=== PATIENT | male | born 1985 | race Caucasian/White ===

== ENCOUNTER 2019-10-10 05:46 | Outpatient (RCR) | payer OTHER ==
[~2019-10-10] VITALS: Ht 180 cm; Wt 86.3 kg
[~2019-10-10 05:46] MED LIST: ADAL10SY2 SQ; ASPI-84; HYDR1TAB PO; OMG1KC
== END 2019-10-10 14:20 | disposition home or self-care (01) ==
LOC: PREOP 05:46
PROVIDERS: ATTEND Otolaryngology Otolaryngology/Facial Plastic Surgery
DX: Z01.818 Encounter for other preprocedural examination (principal); Z20.828 Contact with and (suspected) exposure to other viral communicable diseases
CPT/HCPCS: 87635

== ENCOUNTER 2019-10-13 06:48 | Day surgery (SDC) | payer OTHER ==
[~2019-10-13] VITALS: Ht 180 cm; Wt 86.3 kg
[2019-10-13] VITALS (11 sets, daily range): BP systolic 127–150; BP diastolic 84–100
--- OUTSIDE RECORDS SUMMARY | 2019-10-13 06:54 | XMS REPORT | CCD ---
Author Author Michael Fink D.O. Organization MAUREEN FINK DO [facility] Address [address] [place] [address] Phone Care Team Providers Care Automotive Manager Name Role Phone Maureen Fink D.O., PP Unavailable CCM Unavailable Summary Purpose Interface Exchange Insurance Providers Payer name Policy type / Coverage type Covered alliance party ID Effective Begin Date Effective End Date [facility] Commercial Insurance [id number] Unkno wn Family history Father Diagnosis Age At Onset Suicide attempt Unknown Grandfather Diagnosis Age At Onset Myocardial infarction Unknown sepsis Unknown Social History Social History Element Codes Description Effective Dates Marital status Unknown 06/07/2015 Employment Unknown Currently employed [employer] 06/07/[address]: 9972836 Former smoker 06/07/[address]: 073844 Currently drinks alcohol 06/06 Has the patient ever used illegal drugs? Unknown Has nev er used illegal drugs 06/07/2015 Allergies, Adverse Reactions, Alerts Substance Reaction Codes Entered Date Inactivated Date Status * NO KNOWN FOOD ALLERGIES Unknown 06/07/2015 No Inactiv e Date Active * NO KNOWN ENVIRONMENTAL ALLERGIES Unknown 06/07/2015 N o Inactive Date Active SULFA(SULFONAMIDE ANTIBIOTICS) reaction Unknown 05/09/2019 No In active Date Active Problems Condition Codes Effective Dates Condition Status Recurrent tonsillitis ICD-9: 463 ICD-10: J03.91 08/04/2019 Active Acute tonsillitis, unspecified ICD-9: 463 ICD-10: J03.90 08/02/2018 Active Acute suppurative otitis media of right ear ICD-9: 382 .00 ICD-10: H66.001 03/07/2019 Active Sinusitis ICD-9: 473.9 ICD-10: J32.9 03/07/2019 Active Acute pharyngitis, unspecified ICD-9: 462 ICD-10: J02.9 06/21/2018 Active Acute recurrent maxillary sinusitis ICD-9: 461.0 ICD-10: J01.01 06/21/2018 Active Cutaneous abscess of abdominal wall ICD-9: 682.2 ICD-10: L02.211 11/30/2017 Active Acute upper respiratory infection, unspecified ICD-9: 465.9 ICD-10: J06.9 08/04/2016 Active Otitis media, unspecified, left ear ICD-9: 382.9 ICD-10: H66.92 08/04/2016 Active Acute sinusitis, unspecified ICD-9: 461.9 ICD-10: J01.90 03/27/2016 Active Gastro-esophageal reflux disease without esophagitis I CD-9: 530.81 ICD-10: K21.9 02/03/2016 Active Chest pain, unspecified ICD-9: 786.50 ICD-10: R07.9 01/13/2016 Active COUGH ICD-9: 786.2 ICD-10: R05 01/13/2016 Active Diarrhea, unspecified ICD-9: 787.91 ICD-10: R19.7 11/08/2015 Active Epigastric pain ICD-9: 789.06 ICD-10: R10.13 11/08/2015 Active Other specified abnormal findings of blood chemistry I CD-9: 790.6 ICD-10: R79.89 11/08/2015 Active Cutaneous abscess, unspecified ICD-9: 682.9 ICD-10: L02.91 08/14/2015 Active Cervicalgia ICD-9: 723.1 ICD-10: M54.2 2015 Active Headache ICD-9: 784.0 ICD-10: R51 2015 Active Psoriasis, unspecified ICD-9: 696.1 ICD-10: L40.9 2015 Active Medications Medication Codes Instructions Start Date Stop Date Status Fill Instructions Dexilant 60 mg capsule, delayed release RxNorm: 118079 1 Capsul e(s) Oral QD 09/02/2019 11/30/2019 Active Dexilant 60 mg capsule, delayed release RxNorm: 572818 1 Capsul e(s) Oral QD 09/02/2019 09/01/2019 Inactive Zithromax 500 mg tablet RxNorm: 187464 1 Tablet(s) Oral QD 05/09/1905/14/2019 Inactive Medrol (Anders) 4 mg tablets in a dose pack RxNorm: 060109 Tablet(s) Oral take as directed 03/14/2019 03/14/2019 Inactive Medrol (Anders) 4 mg tablets in a dose pack RxNorm: 501294 Tablet(s) Oral take as directed 03/14/2019 03/13/2019 Inactive Augmentin 875 mg-125 mg tablet RxNorm: 172496 1 Tablet(s) Oral two times a day 03/07/2019 03/17/2019 Inactive Zithromax 500 mg tablet RxNorm: 205228 1 Tablet(s) PO QD 08/02/2018 0 08/08/2018 Inactive omeprazole 40 mg capsule,delayed release RxNorm: 047007 1 Capsu le(s) PO QD 06/23/2018 03/06/2019 Inactive omeprazole 40 mg capsule,delayed release RxNorm: 653835 1 Capsu le(s) PO QD 06/22/2018 06/22/2018 Inactive Augmentin 875 mg-125 mg tablet RxNorm: 139879 1 Tablet(s) PO BID 06/30/2018 Inactive clindamycin HCl 300 mg capsule RxNorm: 536565 2 Capsule(s) PO TID 0 11/30/2017 12/09/2017 Inactive azithromycin 250 mg tablet RxNorm: 274024 2 Tablet(s) P O on day one then 1 tab on days 2-5 08/04/2016 08/03/2016 Inactive prednisone 20 mg tablet RxNorm: 809589 1 Tablet(s) PO QD 08/04/2016 0 08/08/2016 Inactive Augmentin 875 mg-125 mg tablet RxNorm: 333138 1 Tablet(s) PO BID 04/06/2016 Inactive Medrol (Anders) 4 mg tablets in a dose pack RxNorm: 062975 as directed Tablet(s) PO QD 03/28/2016 04/01/2016 Inactive omeprazole 40 mg capsule,delayed release RxNorm: 056779 1 Capsu le(s) PO QD 02/04/2016 08/03/2016 Inactive omeprazole 40 mg capsule,delayed release RxNorm: 971580 1 Capsu le(s) PO BID 01/14/2016 02/03/2016 Inactive clindamycin 300 mg capsule RxNorm: 075314 1 Capsule(s) PO QID 08/1408/24/2015 Inactive Bactroban 2 % topical ointment RxNorm: 540713 Apply top ically to affected area twice daily for 10 days 08/15/2015 11/08/2015 Inactive omeprazole 40 mg capsule,delayed release RxNorm: 051836 1 Capsu le(s) PO QHS 06/07/2015 08/14/2015 Inactive Humira 40 mg/0.8 mL subcutaneous syringe kit RxNorm: 216585 Milliliter(s) SQ every 2 weeks (Dr Elliott) No Start Date Active omeprazole 40 mg capsule,delayed release RxNorm: 552332 1 Capsu le(s) PO QD No Start Date 01/13/2016 Inactive Medication Administered No Medication Administered data Immunizations No Immunization data Results Observation Observation Code Item Item Code Result Date [facility] Location IRON 67071 Iron 136 ug/dL 11/15/2015 Unknown FERRITIN 76077 FERRITIN 269 ng/mL 11/15/2015 Unknown COMPREHENSIVE METABOLIC 54251 AST 19 U/L 2015 Unknown COMPREHENSIVE METABOLIC 88086 ALT 26 U/L 2015 Unknown COMPREHENSIVE METABOLIC 32655 BUN 12 mg/dL 2015 Unknown COMPREHENSIVE METABOLIC 62816 ALBUMIN 4.3 g/dL 2015 Unknown COMPREHENSIVE METABOLIC 68985 CHLORIDE 103 mmol/L 11/08 Unknown COMPREHENSIVE METABOLIC 28082 Bili Total 0.8 mg/dL 11/08 Unknown COMPREHENSIVE METABOLIC 00744 ALK PHOS 56 U/L 2015 Unknown COMPREHENSIVE METABOLIC 56448 SODIUM 135 mmol/L 11/08 Unknown COMPREHENSIVE METABOLIC 15554 CREATININE 1.08 mg/dL 08/2015 Unknown COMPREHENSIVE METABOLIC 92388 CALCIUM 9.6 mg/dL 2015 Unknown COMPREHENSIVE METABOLIC 58253 POTASSIUM 4.2 mmol/L 11/08 Unknown COMPREHENSIVE METABOLIC 16364 Total Protein 7.4 g/dL Unknown COMPREHENSIVE METABOLIC 04776 Glucose 82 mg/dL 2015 Unknown COMPREHENSIVE METABOLIC 85362 Bicarbonate 23 mmol/L 08/2015 Unknown COMPREHENSIVE METABOLIC 35751 AGAP 9 mmol/L 2015 Unknown LIPID GROUP 02284 Cholesterol 176 mg/dL 11/09/2015 Unkno wn LIPID GROUP 61932 Triglyceride 81 mg/dL 11/09/2015 Unkn own LIPID GROUP 32429 HDL CHOLESTEROL 36 mg/dL 11/09/2015 U nknown LIPID GROUP 02199 Chol/HDL Ratio 4.89 ratio 11/09/2015 U nknown LIPID GROUP 59063 NON-HDL Chol 140 mg/dL 11/09/2015 Unkn own LIPID GROUP 53477 LDL Cholesterol 124 mg/dL 11/09/2015 U nknown GFR CALC 0107350 GFR Afr Amr >60 mL/min 11/09/2015 Unknow n GFR CALC [id number] GFR Non Afr Amr >60 mL/min 11/09/2015 Un known FREE T4 06248 T4 Free 1.58 ng/dL 11/09/2015 Unknown THYROID STIMULATING HORMONE 67759 TSH 1.726 uIU/mL 11/09/2015 Unknown COMPLETE BLOOD COUNT 4853884 WBC 6.2 10e9/L 11/09/19 16 Unknown COMPLETE BLOOD COUNT 2113958 RBC 5.59 10e12/L 2015 Unknown COMPLETE BLOOD COUNT 6053191 HEMOGLOBIN 18.1 g/dL 11/09/19 16 Unknown COMPLETE BLOOD COUNT 4235333 HEMATOCRIT 50.1 % 11/09/19 16 Unknown COMPLETE BLOOD COUNT 0756730 MCV 89.6 fL 6 Unknown COMPLETE BLOOD COUNT 3352447 MCH 32.4 pg 6 Unknown COMPLETE BLOOD COUNT 2251268 MCHC 36.1 g/dL 6 Unknown COMPLETE BLOOD COUNT 0610457 PLATELET COUNT 269 10e9/L 08/2015 Unknown COMPLETE BLOOD COUNT 6492101 Mean Plt Volume 10.8 fL 08/2015 Unknown COMPLETE BLOOD COUNT 6280885 Neut Auto 47.0 % 6 Unknown COMPLETE BLOOD COUNT 4415314 Lymph Auto 33.2 % 11/09/19 16 Unknown COMPLETE BLOOD COUNT 7845956 [place] Auto 16.5 % 6 Unknown COMPLETE BLOOD COUNT 0926361 Eos Auto 2.8 % 6 Unknown COMPLETE BLOOD COUNT 7703662 RDW 13.2 % 6 Unknown COMPLETE BLOOD COUNT 1570271 Baso Auto 0.5 % 6 Unknown COMPLETE BLOOD COUNT 8419601 Neutrophil Abs 2.91 10e9/L Unknown COMPLETE BLOOD COUNT 3686550 Lymphocyte Abs 2.06 10e9/L Unknown COMPLETE BLOOD COUNT [id number] Monocyte Abs 1.02 10e9/L 08/2015 Unknown COMPLETE BLOOD COUNT 1381421 Eosinophil Abs 0.17 10e9/L Unknown COMPLETE BLOOD COUNT 0409239 RDW-SD 42.9 fL 6 Unknown COMPLETE BLOOD COUNT [id number] Basophil Abs 0.03 10e9/L 08/2015 Unknown Procedures Procedure Codes Date STREP A ASSAY W/OPTIC CPT-4: 45134 08/02/2018 STREP A ASSAY W/OPTIC CPT-4: 84649 06/21/2018 ASSAY OF IRON CPT-4: 60109 11/09/2015 ASSAY OF FERRITIN CPT-4: 34298 11/09/2015 DRAINAGE OF SKIN ABSCESS CPT-4: 54772 08/15/2015 AEROBIC WOUND CULTURE & STN CPT-4: 87416 08/15/2015 Vital Signs Date Vital 05/09/2019 Blood Pressure 1: 134/82 Code: 8480-6 Heart Rate 1: 86 bpm Respiratory Rate: 17 bpm SpO2: 98% Temperature: 36.2 (C) / 97.1 (F) We ight: 198 lbs 03/07/2019 Blood Pressure 1: 134/82 Code: 8480-6 Heart Rate 1: 88 bpm Respiratory Rate: 20 bpm SpO2: 98% Temperature: 37.2 (C) / 99.0 (F) We ight: 198 lbs 08/02/2018 Blood Pressure 1: 126/82 Code: 8480-6 BMI: 29.1 Code: 11375-7 Heart Rate 1: 72 bpm Height: 5'10" Respiratory Rate: 20 bpm SpO2: 97% Tempera ture: 36.8 (C) / 98.3 (F) Weight: 203 lbs 06/21/2018 Blood Pressure 1: 128/90 Code: 8480-6 Heart Rate 1: 80 bpm Respiratory Rate: 18 bpm SpO2: 98% Temperature: 36.7 (C) / 98.1 (F) We ight: 207 lbs 11/30/2017 Blood Pressure 1: 122/78 Code: 8480-6 BMI: 27.7 Code: 19906-7 Heart Rate 1: 76 bpm Height: 5'10" SpO2: 98% Temperature: 36.4 (C) / 97.5 (F) Weight: 193 lbs 08/04/2016 Blood Pressure 1: 122/78 Code: 8480-6 BMI: 28.1 Code: 32083-7 Heart Rate 1: 72 bpm Height: 5'10" Respiratory Rate: 22 bpm SpO2: 97% Tempera ture: 36.3 (C) / 97.3 (F) Weight: 196 lbs 03/28/2016 Blood Pressure 1: 136/74 Code: 8480-6 Heart Rate 1: 100 bpm Respiratory Rate: 24 bpm SpO2: 97% Temperature: 36.4 (C) / 97.6 (F) We ight: 198 lbs 02/04/2016 Blood Pressure 1: 112/70 Code: 8480-6 BMI: 27.6 Code: 20116-8 Heart Rate 1: 72 bpm Height: 5'11" Respiratory Rate: 20 bpm Temperature: 36 .6 (C) / 97.8 (F) Weight: 198 lbs 01/14/2016 Blood Pressure 1: 124/78 Code: 8480-6 BMI: 27.8 Code: 26753-3 Heart Rate 1: 76 bpm Height: 5'11" Respiratory Rate: 20 bpm Temperature: 36 .7 (C) / 98.0 (F) Weight: 199 lbs 11/09/2015 Blood Pressure 1: 124/78 Code: 8480-6 BMI: 27.2 Code: 71468-6 Heart Rate 1: 76 bpm Height: 5'11" Respiratory Rate: 20 bpm Temperature: 36 .7 (C) / 98.0 (F) Weight: 195 lbs 08/15/2015 Blood Pressure 1: 124/78 Code: 8480-6 Heart Rate 1: 82 bpm Respiratory Rate: 20 bpm SpO2: 97% Temperature: 35.9 (C) / 96.6 (F) We ight: 198 lbs 06/07/2015 Blood Pressure 1: 128/70 Code: 8480-6 BMI: 28.3 Code: 41591-5 Heart Rate 1: 76 bpm Height: 5'11" Respiratory Rate: 20 bpm Temperature: 36 .9 (C) / 98.4 (F) Weight: 203 lbs Functional Status No Functional Status data Reason For Visit Reason For Visit Effective Dates Notes sore throat 08/04/2019 sore throat 05/09/2019 sinus congestion 03/07/2019 sore throat 08/02/2018 sore throat 06/21/2018 sores 11/30/2017 cough 08/04/2016 cough 03/28/2016 follow up 02/04/2016 chest pain/pressure 01/14/2016 abdominal pain 11/09/2015 skin lesion 08/15/2015 ~generic 06/07/2015 New Patient Encounters Encounter Performer Location Codes Date ([id number]) OFFICE/OUTPATIENT VISIT EST Diagnosis: Recurrent tonsillitis[ICD10: J03.91] Maureen FINK [address] [facility] CPT-4: 19090 08/04/2019 ([id number]) OFFICE/OUTPATIENT VISIT EST Diagnosis: Acute tonsillitis, unspecified[ICD10: J03.90] Justa FINK [address] [facility] CPT-4: 68221 05/09/2019 ([id number]) OFFICE/OUTPATIENT VISIT EST Diagnosis: Sinusitis[ICD10: J32.9] Diagnosis: Acute suppurative otitis media of right ear[ICD10: H66.001] Justa FINK [address] [facility] CPT-4: 46226 03/07/2019 ([id number]) OFFICE/OUTPATIENT VISIT EST Diagnosis: Acute pharyngitis, unspecified[ICD10: J02.9] Diagnosis: Acute tonsillitis, unspecified[ICD10: J03.90] Maureen FINK [address] [facility] CPT-4: 28941 08/02/2018 ([id number]) OFFICE/OUTPATIENT VISIT EST Diagnosis: Acute recurrent maxillary sinusitis[ICD10: J01.01] Diagnosis: Acute pharyngitis, unspecified[ICD10: J02.9] Mary Blairlauren FINK [address] [facility] CPT-4: 26065 06/21/2018 ([id number]) OFFICE/OUTPATIENT VISIT EST Diagnosis: Cutaneous abscess of abdominal wall[ICD10: L02.211] Maureen FINK [address] [facility] CPT-4: 81656 11/30/2017 ([id number]) OFFICE/OUTPATIENT VISIT EST Diagnosis: Acute upper respiratory infection, unspecified[ICD10: J06.9] Diagnosis: Otitis media, unspecified, left ear[ICD10: H66.92] Tammy CRYSTALLINE GregTarah [facility] CPT-4: 01204 08/04/2016 OFFICE/OUTPATIENT VISIT EST Diagnosis: Acute sinusitis, unspecified[ICD10: J01.90] Dacia GarzaTarah [facility] CPT-4: 87533 03/28/2016 OFFICE/OUTPATIENT VISIT EST Diagnosis: Gastro-esophageal reflux disease without esophagitis[ICD10: K21.9] Maureen Chauchong Catalan [facility] CPT-4: 42002 02/04/2016 ([id number]) OFFICE/OUTPATIENT VISIT EST Diagnosis: Chest pain, unspecified[ICD10: R07.9] Diagnosis: Gastro-esophageal reflux disease without esophagitis[ICD10: K21.9] Diagnosis: COUGH[ICD10: R05] Maureen Chauchong Catalan [facility] CPT-4: 40651 01/14/2016 OFFICE/OUTPATIENT VISIT EST Diagnosis: Epigastric pain[ICD10: R10.13] Diagnosis: Diarrhea, unspecified[ICD10: R19.7] Diagnosis: Other specified abnormal findings of blood chemistry[ICD10: R79.89] Dacia CRYSTALLINE GregTarah [facility] CPT-4: 95296 11/09/2015 ([id number]) OFFICE/OUTPATIENT VISIT EST Diagnosis: Cutaneous abscess, unspecified[ICD10: L02.91] Tammy CRYSTALCHERELLE Catalan [facility] CPT-[facility]: 86179 08/15/2015 OFFICE/OUTPATIENT VISIT NEW Diagnosis: Psoriasis, unspecified[ICD10: L40.9] Diagnosis: Gastro-esophageal reflux disease without esophagitis[ICD10: K21.9] Diagnosis: Headache[ICD10: R51] Diagnosis: Cervicalgia[ICD10: M54.2] Maureen Catalan [facility] CPT-4: 62585 06/07/2015 Plan of Care Planned Activity Notes Codes Status Date Visit Diagnosis Plan: Recurrent tonsillitis Discussion : video visit done Will start with throat culture If throat culture negative will need ENT evaluation ICD-9 : 463 ICD-10 : J03.91 08/04/2019 Appointment: Maureen Fink WPtel: [phone] [id number] TELEMEDICINE 08/04/2019 Visit Diagnosis Plan: Acute tonsillitis, unspecified D iscussion: zithromax prescribed to patient. instructed to rtc next week if he continues to have white exudate on tonsils and will proceed with culture. call office with any new or worsening symptoms. ibuprofen prn and push fluids. ICD-9 : 463 ICD-10 : J03.90 05/09/2019 Appointment: Justa Stevenson [address] [place] [address] ACUTE ILLNESS 05/09/2019 Visit Diagnosis Plan: Sinusitis Discussion: augmentin prescribed to cover for sinus infection and ear infection. push fluids and instructed to use tylenol/ibuprofen prn pain. call or rtc with new or worsening symptoms. ICD-9 : 473.9 ICD-10 : J32.9 03/07/2019 Appointment: Justa Stevenson [address] [place] [address] ACUTE ILLNESS 03/07/2019 Visit Plan: Supportive care. Rest, Fluid s, Tylenol/Motrin prn fever or bodyaches. Notify if worsening symptoms.New toothebrush in 5 days 08/02/2018 Visit Diagnosis Plan: Acute pharyngitis, unspecified D iscussion: Strep negative but will cover due to immunodeficiency meds Zithromax Throat culture 2 weeks after done with abx unless worsening then need to consider mono If returns again soon then will see ENT for laryngoscope ICD-9 : 462 ICD-10 : J02.9 08/02/2018 Visit NOS Plan: Plan Notes: Supportive care. Rest, Fluids... 08/02/2018 Appointment: Maureen Fink WPtel: [phone] [facility] ACUTE ILLNESS 08/02/2018 Visit Diagnosis Plan: Acute recurrent maxillary sinusi tis Discussion: Strep A- negative. Treating for sinusitis. Augmentin- take as directed. Sinus rinses encouraged. Salt water gargles. Fluids, rest, Tylenol or Motrin for pain and fever. Make annual wellness visit when checking out. Patient states understanding. ICD-9 : 461.0 ICD-10 : J01.01 06/21/2018 Appointment: Mary Elder [facility] [address] ACUTE ILLNESS 06/21/2018 Visit Diagnosis Plan: Cutaneous abscess of abdominal w all Discussion: Some bloody discharge expressed but no pus--his got old blood and pus out last night Warm compresses and clindamycin and notify if worsens or persists ICD-9 : 682.2 ICD-10 : L02.211 11/30/2017 Appointment: Maureen Fink WPtel: [address] [place] [address] ACUTE ILLNESS 11/30/2017 Patient Education: Patient Medication Summary Completed 11/30/2017 Visit Diagnosis Plan: Acute upper respiratory infectio n, unspecified Discussion: Continue OTC meds and home remedies Rxs as above Notifiy prescriber of humira of treatment plan Rest, fluids, vicks, humidifier, etc Follow up PRN ICD-9 : 465.9 ICD-10 : J06.9 08/04/2016 Appointment: Tammy Martinez [address] [place] [address] ACUTE ILLNESS 08/04/2016 Patient Education: Patient Medication Summary Completed 08/04/2016 Visit Plan: ERx Augmentin and Medrol Dos pack Has Mucinex D at home Nasal saline, humidified air, Tylenol/ibuprofen prn Discussed s/s of worsening, go to UC/QC over weekend if needed 03/28/2016 Appointment: Dacia Champion WPtel: [address] [place] [address] ACUTE ILLNESS 03/28/2016 Patient Education: Patient Medication Summary Completed 03/28/2016 Visit Plan: Finish omeprazole at 40mg po BID for full month then decrease to 40mg daily for 1month then if no return of symptoms will decrease to 20mg daily for 1month then fwup 02/04/2016 Appointment: Maureen Fink WPtel: [address] [place] [address] 01/30 confirmed`sl FOLLOW UP 02/04/2016 Patient Education: Patient Medication Summary Completed 02/04/2016 Patient Education: [facility] - [facility]st Mo [facility] - [facility] [place] Completed 02/04/2016 Visit Plan: No caffeine, no nicotine, no alcohol, no mints, no late meals, elevate HOB 30 degrees Omeprazole 40mg po BID Check CXR and EKG 01/14/2016 Appointment: Maureen Fink WPtel: [address] [place], [place] [address] ACUTE ILLNESS 01/14/2016 Patient Education: Patient Medication Summary Completed 01/14/2016 Care Plan: CHEST X-RAY 2VW FRONTAL&LATL LOINC : 21559-2 Pending 01/14/2016 Appointment: Maureen Fink WPtel: [address] [place] [address] 11/[address] sterling [place] visit~sl RESCHEDULED 0 11/21/2015 Care Plan: ECHO EXAM OF ABDOMEN LOINC : 74204-6 Pending 11/10/2015 Visit Plan: Declines medication for bipinr beverley Declines stool studies CMP, CBC, TSH, Lipids (history of hyperlipidemia) GB U/S RTC/ER for worsening Discussed correlation with high fat foods, avoid. 11/09/2015 Appointment: Dacia Champion WPtel: [address] [place] [address] ACUTE ILLNESS 11/09/2015 Patient Education: Patient Medication Summary Completed 11/09/2015 Appointment: Tammy Martinez [address] [place], [place] [phone] [place] Called at 9:20am.Patients rash went away over night. feeling better.-sp ACUTE ILLNESS 10/31/2015 Appointment: Tammy Martinez [address] [place], [place] [phone] [place] called back within minutes of scheduling to notify he could not make the appointment time. Per Dr Fink, this is a forgiven since he called back immediately to cancel the appointment.~lb RESCHEDULED 10/30/2015 Visit Plan: Rxs as above until culture r eceived Reviewed wound care Will need follow up if not improving as expected 08/15/2015 Appointment: Tammy Martinez [address] [place] [address] ACUTE ILLNESS 08/15/2015 Patient Education: Patient Medication Summary Completed 08/15/2015 Visit Plan: Omeprazole 40mg q HS for 1mo nth then call on how heartburn is doing Check lipids with next blood draw for humira Daily neck stretches and topical biofreeze to see if helps neck and HAS Discussed with pitting in nails may have psoriatic arthritis component as well 06/07/2015 [facility]ment: [facility] [phone] [id number] [place] 06/05-SP 06/06 Confirmed~sl ACUTE ILLNESS 06/06 Patient Education: Patient Medication Summary Completed 06/07/2015 Instructions Comment . Supportive care. Rest, Fluids, Tyleno l/Motrin prn fever or bodyaches. Notify if worsening symptoms.New toothebrush in 5 days . ERx Augmentin and Medrol Dospack Has Mucinex D at home Nasal saline, humidified air, Tylenol/ibuprofen prn Discussed s/s of worsening, go to UC/QC over weekend if needed . Finish omeprazole at 40mg po BID for f ull month then decrease to 40mg daily for 1month then if no return of symptoms will decrease to 20mg daily for 1month then fwup . No caffeine, no nicotine, no alcohol, no mints, no late meals, elevate HOB 30 degrees Omeprazole 40mg po BID Check CXR and EKG . Declines medication for diarrhea Declines stool studies CMP, CBC, TSH, Lipids (history of hyperlipidemia) GB U/S RTC/ER for worsening Discussed correlation with high fat foods, avoid. . Rxs as above until culture received Reviewed wound care Will need follow up if not improving as expected . Omeprazole 40mg q HS for 1month then c all on how heartburn is doing Check lipids with next blood draw for humira Daily neck stretches and topical biofreeze to see if helps neck and HAS Discussed with pitting in nails may have psoriatic arthritis component as well Medical Equipment No Medical Equipment data Health Concerns Section Health Concerns data not found Goals Section Goals data not found Interventions Section Interventions data not found Health Status Evaluations/Outcomes Section Health Status Evaluations/Outcomes data not found Advance Directives No Advance Directive data
--- OUTSIDE RECORDS SUMMARY | 2019-10-13 06:54 | XMS REPORT | CCD ---
Author Author Michael Fink D.O. Organization [facility] Address [address] [place] [address] Phone Care Team Providers Care Receptionist Telephone Operator Name Role Phone Maureen Fink D.O., PP Unavailable CCM Unavailable Summary Purpose Interface Exchange Insurance Providers Payer name Policy type / Coverage type Covered alliance party ID Effective Begin Date Effective End Date [facility] Commercial Insurance [id number] Unkno wn Family history Father Diagnosis Age At Onset Suicide attempt Unknown Grandfather Diagnosis Age At Onset Myocardial infarction Unknown sepsis Unknown Social History Social History Element Codes Description Effective Dates Marital status Unknown 06/07/2015 Employment Unknown Currently employed [employer] 06/07/[address]: 0747690 Former smoker 06/07/[address]: 425394 Currently drinks alcohol 06/06 Has the patient [...] Start Date Stop Date Status Fill Instructions Zithromax 500 mg tablet RxNorm: 329010 1 Tablet(s) Oral QD 05/09/19 20 05/14/2019 Inactive Medrol (Anders) 4 mg tablets in a dose pack RxNorm: 140292 Tablet(s) Oral take as directed 03/14/2019 03/14/2019 Inactive Medrol (Anders) 4 mg tablets in a dose pack RxNorm: 094899 Tablet(s) Oral take as directed 03/14/2019 03/13/2019 Inactive Augmentin 875 mg-125 mg tablet RxNorm: 955874 1 Tablet(s) Oral two times a day 03/07/2019 03/17/2019 Inactive Zithromax 500 mg tablet RxNorm: 361471 1 Tablet(s) PO QD 08/02/2018 0 08/08/2018 Inactive omeprazole 40 mg capsule,delayed release RxNorm: 639643 1 Capsu le(s) PO QD 06/23/2018 03/06/2019 Inactive omeprazole 40 mg capsule,delayed release RxNorm: 040177 1 Capsu le(s) PO QD 06/22/2018 06/22/2018 Inactive Augmentin 875 mg-125 mg tablet RxNorm: 273219 1 Tablet(s) PO BID 06/30/2018 Inactive clindamycin HCl 300 mg capsule RxNorm: 922152 2 Capsule(s) PO TID 0 11/30/2017 12/09/2017 Inactive azithromycin 250 mg tablet RxNorm: 148731 2 Tablet(s) P O on day one then 1 tab on days 2-5 08/04/2016 08/03/2016 Inactive prednisone 20 mg tablet RxNorm: 863145 1 Tablet(s) PO QD 08/04/2016 0 08/08/2016 Inactive Augmentin 875 mg-125 mg tablet RxNorm: 686499 1 Tablet(s) PO BID 04/06/2016 Inactive Medrol (Anders) 4 mg tablets in a dose pack RxNorm: 041756 as directed Tablet(s) PO QD 03/28/2016 04/01/2016 Inactive omeprazole 40 mg capsule,delayed release RxNorm: 018543 1 Capsu le(s) PO QD 02/04/2016 08/03/2016 Inactive omeprazole 40 mg capsule,delayed release RxNorm: 895231 1 Capsu le(s) PO BID 01/14/2016 02/03/2016 Inactive clindamycin 300 mg capsule RxNorm: 942457 1 Capsule(s) PO QID 08/1408/24/2015 Inactive Bactroban 2 % topical ointment RxNorm: 693321 Apply top ically to affected area twice daily for 10 days 08/15/2015 11/08/2015 Inactive omeprazole 40 mg capsule,delayed release RxNorm: 552305 1 Capsu le(s) PO QHS 06/07/2015 08/14/2015 Inactive Humira 40 mg/0.8 mL subcutaneous syringe kit RxNorm: 065024 Milliliter(s) SQ every 2 weeks (Dr Elliott) No Start Date Active omeprazole 40 mg capsule,delayed release RxNorm: 751636 1 Capsu le(s) PO QD No Start Date 01/13/2016 Inactive Medication Administered No Medication Administered data Immunizations No Immunization data Results Observation Observation Code Item Item Code Result Date S ervice Location IRON 96082 Iron 136 ug/dL 11/15/2015 Unknown FERRITIN 09274 FERRITIN 269 ng/mL 11/15/2015 Unknown COMPREHENSIVE METABOLIC 22335 AST 19 U/L 2015 Unknown COMPREHENSIVE METABOLIC 97970 ALT 26 U/L 2015 Unknown COMPREHENSIVE METABOLIC 45212 BUN 12 mg/dL 2015 Unknown COMPREHENSIVE METABOLIC 67826 ALBUMIN 4.3 g/dL 2015 Unknown COMPREHENSIVE METABOLIC 43971 CHLORIDE 103 mmol/L 11/08 Unknown COMPREHENSIVE METABOLIC 84543 Bili Total 0.8 mg/dL 11/08 Unknown COMPREHENSIVE METABOLIC 87480 ALK PHOS 56 U/L 2015 Unknown COMPREHENSIVE METABOLIC 82690 SODIUM 135 mmol/L 11/08 Unknown COMPREHENSIVE METABOLIC 61389 CREATININE 1.08 mg/dL 08/2015 Unknown COMPREHENSIVE METABOLIC 70519 CALCIUM 9.6 mg/dL 2015 Unknown COMPREHENSIVE METABOLIC 42459 POTASSIUM 4.2 mmol/L 11/08 Unknown COMPREHENSIVE METABOLIC 60194 Total Protein 7.4 g/dL Unknown COMPREHENSIVE METABOLIC 51943 Glucose 82 mg/dL 2015 Unknown COMPREHENSIVE METABOLIC 58728 Bicarbonate 23 mmol/L 08/2015 Unknown COMPREHENSIVE METABOLIC 58555 AGAP 9 mmol/L 2015 Unknown [facility] 18300 Cholesterol 176 mg/dL 11/09/2015 Unkno wn LIP[facility] 48539 Triglyceride 81 mg/dL 11/09/2015 Unkn own L[facility] GROUP 77046 HDL CHOLESTEROL 36 mg/dL 11/09/2015 U nknown LIP[facility] GROUP 24279 Chol/HDL Ratio 4.89 ratio 11/09/2015 U nknown LIPID GROUP 95264 NON-HDL Chol 140 mg/dL 11/09/2015 Unkn own LIP[facility] GROUP 54016 LDL Cholesterol 124 mg/dL 11/09/2015 U nknown GFR CALC 8109077 GFR Non Afr Amr >60 mL/min 11/09/2015 Un known GFR CALC 0024870 GFR Afr Amr >60 mL/min 11/09/2015 Unknow n FREE T4 53962 T4 Free 1.58 ng/dL 11/09/2015 Unknown THYROID STIMULATING HORMONE 84148 TSH 1.726 uIU/mL 11/09/2015 Unknown COMPLETE BLOOD COUNT 1020605 WBC 6.2 10e9/L 11/09/19 16 Unknown COMPLETE BLOOD COUNT 6014546 RBC 5.59 10e12/L 2015 Unknown COMPLETE BLOOD COUNT 1329828 HEMOGLOBIN 18.1 g/dL 11/09/19 16 Unknown COMPLETE BLOOD COUNT 1003224 HEMATOCRIT 50.1 % 11/09/19 16 Unknown COMPLETE BLOOD COUNT 3095645 MCV 89.6 fL 6 Unknown COMPLETE BLOOD COUNT 2691224 MCH 32.4 pg 6 Unknown COMPLETE BLOOD COUNT 5493001 MCHC 36.1 g/dL 6 Unknown COMPLETE BLOOD COUNT 8747592 PLATELET COUNT 269 10e9/L 08/2015 Unknown COMPLETE BLOOD COUNT 2347576 Mean Plt Volume 10.8 fL 08/2015 Unknown COMPLETE BLOOD COUNT 4903436 Neut Auto 47.0 % 6 Unknown COMPLETE BLOOD COUNT 9230963 Lymph Auto 33.2 % 11/09/19 16 Unknown COMPLETE BLOOD COUNT 8749527 [facility] Auto 16.5 % 6 Unknown COMPLETE BLOOD COUNT 8005231 RDW 13.2 % 6 Unknown COMPLETE BLOOD COUNT 1656785 Eos Auto 2.8 % 6 Unknown COMPLETE BLOOD COUNT 4076438 Baso Auto 0.5 % 6 Unknown COMPLETE BLOOD COUNT 7502921 Neutrophil Abs 2.91 10e9/L Unknown COMPLETE BLOOD COUNT 9740223 Lymphocyte Abs 2.06 10e9/L Unknown COMPLETE BLOOD COUNT 8077240 Monocyte Abs 1.02 10e9/L 0808/2015 Unknown COMPLETE BLOOD COUNT 3569477 Eosinophil Abs 0.17 10e9/L Unknown COMPLETE BLOOD COUNT 8283921 RDW-SD 42.9 fL 6 Unknown COMPLETE BLOOD COUNT [id number] Basophil Abs 0.03 10e9/L 08/0 08/2015 Unknown Procedures Procedure Codes Date STREP A ASSAY W/OPTIC CPT-4: 26951 08/02/2018 STREP A ASSAY W/OPTIC CPT-4: 50722 06/21/2018 ASSAY OF IRON CPT-4: 90138 11/09/2015 ASSAY OF FERRITIN CPT-4: 77048 11/09/2015 DRAINAGE OF SKIN ABSCESS CPT-4: 25317 08/15/2015 AEROBIC WOUND CULTURE & STN CPT-4: 60251 08/15/2015 Vital Signs Date Vital 05/09/2019 Blood [...] 1: 126/82 Code: 8480-6 BMI: 29.1 Code: 70995-2 Heart Rate 1: 72 bpm Height: 5'10" Respiratory Rate: 20 bpm SpO2: 97% Tempera ture: 36.8 (C) / 98.3 (F) Weight: 203 lbs 06/21/2018 Blood Pressure 1: 128/90 Code: 8480-6 Heart Rate 1: 80 bpm Respiratory Rate: 18 bpm SpO2: 98% Temperature: 36.7 (C) / 98.1 (F) We ight: 207 lbs 11/30/2017 Blood Pressure 1: 122/78 Code: 8480-6 BMI: 27.7 Code: 80927-5 Heart Rate 1: 76 bpm Height: 5'10" SpO2: 98% Temperature: 36.4 (C) / 97.5 (F) Weight: 193 lbs 08/04/2016 Blood Pressure 1: 122/78 Code: 8480-6 BMI: 28.1 Code: 51672-9 Heart Rate 1: 72 bpm Height: 5'10" Respiratory Rate: 22 bpm SpO2: 97% Tempera ture: 36.3 (C) / 97.3 (F) Weight: 196 lbs 03/28/2016 Blood Pressure 1: 136/74 Code: 8480-6 Heart Rate 1: 100 bpm Respiratory Rate: 24 bpm SpO2: 97% Temperature: 36.4 (C) / 97.6 (F) We ight: 198 lbs 02/04/2016 Blood Pressure 1: 112/70 Code: 8480-6 BMI: 27.6 Code: 07685-6 Heart Rate 1: 72 bpm Height: 5'11" Respiratory Rate: 20 bpm Temperature: 36 .6 (C) / 97.8 (F) Weight: 198 lbs 01/14/2016 Blood Pressure 1: 124/78 Code: 8480-6 BMI: 27.8 Code: 13540-2 Heart Rate 1: 76 bpm Height: 5'11" Respiratory Rate: 20 bpm Temperature: 36 .7 (C) / 98.0 (F) Weight: 199 lbs 11/09/2015 Blood Pressure 1: 124/78 Code: 8480-6 BMI: 27.2 Code: 35531-5 Heart Rate 1: 76 bpm Height: 5'11" Respiratory Rate: 20 bpm Temperature: 36 .7 (C) / 98.0 (F) Weight: 195 lbs 08/15/2015 Blood Pressure 1: 124/78 Code: 8480-6 Heart Rate 1: 82 bpm Respiratory Rate: 20 bpm SpO2: 97% Temperature: 35.9 (C) / 96.6 (F) We ight: 198 lbs 06/07/2015 Blood Pressure 1: 128/70 Code: 8480-6 BMI: 28.3 Code: 86177-9 Heart Rate 1: 76 bpm Height: 5'11" [...] Patient Encounters Encounter Performer Location Codes Date ([id number]) OFFICE/OUTPATIENT VISIT EST Diagnosis: Recurrent tonsillitis[ICD10: J03.91] Maureen Aleks FINK [facility] CPT-4: 09226 08/04/2019 ([id number]) OFFICE/OUTPATIENT VISIT EST Diagnosis: Acute tonsillitis, unspecified[ICD10: J03.90] Justa FINK DO [facility] CPT-4: 65921 05/09/2019 ([id number]) OFFICE/OUTPATIENT VISIT EST Diagnosis: Sinusitis[ICD10: J32.9] Diagnosis: Acute suppurative otitis media of right ear[ICD10: H66.001] Justa FINK [facility] CPT-4: 76785 03/07/2019 ([id number]) OFFICE/OUTPATIENT VISIT EST Diagnosis: Acute pharyngitis, unspecified[ICD10: J02.9] Diagnosis: Acute tonsillitis, unspecified[ICD10: J03.90] Maureen Aleks CRYSTALLINE Hossein FINK [facility] CPT-4: 39963 08/02/2018 ([id number]) OFFICE/OUTPATIENT VISIT EST Diagnosis: Acute recurrent maxillary sinusitis[ICD10: J01.01] Diagnosis: Acute pharyngitis, unspecified[ICD10: J02.9] Maryjennyfer CRYSTALLINE Hossein FINK [facility] CPT-4: 10619 06/21/2018 ([id number]) OFFICE/OUTPATIENT VISIT EST Diagnosis: Cutaneous abscess of abdominal wall[ICD10: L02.211] Maureen Coxadis MAUREEN GregTarah ALEKS [facility] CPT-4: 21065 11/30/2017 ([id number]) OFFICE/OUTPATIENT VISIT EST Diagnosis: Acute upper respiratory infection, unspecified[ICD10: J06.9] Diagnosis: Otitis media, unspecified, left ear[ICD10: H66.92] Tammy BRADLEYQUELINE GregTarah [facility] CPT-4: 11978 08/04/2016 OFFICE/OUTPATIENT VISIT EST Diagnosis: Acute sinusitis, unspecified[ICD10: J01.90] Dacia BRADLEYQUELINE GregTarah [facility] CPT-4: 27843 03/28/2016 OFFICE/OUTPATIENT VISIT EST Diagnosis: Gastro-esophageal reflux disease without esophagitis[ICD10: K21.9] Maureen Aleks MAUREEN GregTarah [facility] CPT-4: 75309 02/04/2016 ([id number]) OFFICE/OUTPATIENT VISIT EST Diagnosis: Chest pain, unspecified[ICD10: R07.9] Diagnosis: Gastro-esophageal reflux disease without esophagitis[ICD10: K21.9] Diagnosis: COUGH[ICD10: R05] Maureen HAWKINS GregaTrah [facility] CPT-4: 95426 01/14/2016 OFFICE/OUTPATIENT VISIT EST Diagnosis: Epigastric pain[ICD10: R10.13] Diagnosis: Diarrhea, unspecified[ICD10: R19.7] Diagnosis: Other specified abnormal findings of blood chemistry[ICD10: R79.89] Dacia Akira HAWKINS GregTarah [facility] CPT-4: 67845 11/09/2015 ([id number]) OFFICE/OUTPATIENT VISIT EST Diagnosis: Cutaneous abscess, unspecified[ICD10: L02.91] Tammy Martinez MAUREEN GregTarah [facility] CPT-4: 65855 08/15/2015 OFFICE/OUTPATIENT VISIT NEW Diagnosis: Psoriasis, unspecified[ICD10: L40.9] Diagnosis: Gastro-esophageal reflux disease without esophagitis[ICD10: K21.9] Diagnosis: Headache[ICD10: R51] Diagnosis: Cervicalgia[ICD10: M54.2] Maureen HAWKINS GregTarah [facility] CPT-4: 39578 06/07/2015 Plan of Care Planned Activity Notes Codes Status Date Visit Diagnosis Plan: Recurrent tonsillitis Discussion : ny video visit done Will start with throat culture If throat culture negative will need ENT evaluation ICD-9 : 463 ICD-10 : J03.91 08/04/2019 App[facility]ment[facility] [phone] [id number] [facility] 08/04/2019 Visit Diagnosis Plan: Acute tonsillitis, unspecified D iscussion: zithromax prescribed to patient. instructed to rtc next week if he continues to have white exudate on tonsils and will proceed with culture. call office with any new or worsening symptoms. ibuprofen prn and push fluids. ICD-9 : 463 ICD-10 : J03.90 05/09/2019 Appointment: Justa Stevenson [address] [place] [address] ACUTE ILLNESS 05/09/2019 Visit Diagnosis Plan: Sinusitis Discussion: augmentin prescribed to cover for sinus infection and ear infection. push fluids and instructed to use tylenol/ibuprofen prn pain. call or rtc with new or worsening symptoms. ICD-9 : 473.9 ICD-10 : J32.9 03/07/2019 Appointment: Justa Stevenson [address] [place] [address] ACUTE ILLNESS 03/07/2019 Visit Plan: Supportive care. [...] Rest, Fluids... 08/02/2018 Appointment: Maureen Fink WPtel: [facility] [address] ACUTE ILLNESS 08/02/2018 Visit Diagnosis Plan: Acute recurrent maxillary sinusi tis Discussion: Strep A- negative. Treating for sinusitis. Augmentin- take as directed. Sinus rinses encouraged. Salt water gargles. Fluids, rest, Tylenol or Motrin for pain and fever. Make annual wellness visit when checking out. Patient states understanding. ICD-9 : 461.0 ICD-10 : J01.01 06/21/2018 Appointment: Mary Elder [address] [place] [address] ACUTE ILLNESS 06/21/2018 Visit Diagnosis Plan: Cutaneous abscess of abdominal w all Discussion: Some bloody discharge expressed but no pus--his got old blood and pus out last night Warm compresses and clindamycin and notify if worsens or persists ICD-9 : 682.2 ICD-10 : L02.211 11/30/2017 Appointment: Maureen Fink WPtel: [address] [place] [address] ACUTE ILLNESS 11/30/2017 Patient Education: Patient Medication Summary Completed 11/30/2017 Visit Diagnosis Plan: Acute upper respiratory infectio n, unspecified Discussion: Continue OTC meds and home remedies Rxs as above Notifiy prescriber of humira of treatment plan Rest, fluids, vicks, humidifier, etc Follow up PRN ICD-9 : 465.9 ICD-10 : J06.9 08/04/2016 Appointment: Tammy Martinez [address] [place] [address] ACUTE ILLNESS 08/04/2016 Patient Education: Patient Medication Summary Completed 08/04/2016 Visit Plan: ERx Augmentin and Medrol Dos pack Has Mucinex D at home Nasal saline, humidified air, Tylenol/ibuprofen prn Discussed s/s of worsening, go to UC/QC over weekend if needed 03/28/2016 Appointment: Dacia Champion WPtel: [address] [place] [address] ACUTE ILLNESS 03/28/2016 Patient Education: Patient Medication Summary Completed 03/28/2016 Visit Plan: Finish omeprazole at 40mg po BID for full month then decrease to 40mg daily for 1month then if no return of symptoms will decrease to 20mg daily for 1month then fwup 02/04/2016 Appointment: Maureen Fink WPtel: [address] [place] [address] 01/30 confirmed`sl FOLLOW UP 02/04/2016 Patient Education: Patient Medication Summary Completed 02/04/2016 Patient Education: [facility] - Prilosec - 1st Mo Free - Odd Torsten Delarosa Completed 02/04/2016 Visit Plan: No caffeine, no nicotine, no alcohol, no mints, no late meals, elevate HOB 30 degrees Omeprazole 40mg po BID Check CXR and EKG 01/14/2016 Appointment: Maureen Fink WPtel: [address] [place], [place] [id number] ACUTE ILLNESS 01/14/2016 Patient Education: Patient Medication Summary Completed 01/14/2016 Care Plan: CHEST X-RAY 2VW FRONTAL&LATL LOINC : 76490-0 Pending 01/14/2016 Appointment: Maureen Fink WPtel: [address] [place], [place] [phone] 11/[address] sterling [place] visit~sl RESCHEDULED 0 11/21/2015 Care Plan: ECHO EXAM OF ABDOMEN LOINC : 75311-1 Pending 11/10/2015 Visit Plan: Declines medication for bipinr beverley Declines stool studies CMP, CBC, TSH, Lipids (history of hyperlipidemia) GB U/S RTC/ER for worsening Discussed correlation with high fat foods, avoid. 11/09/2015 Appointment: Dacia Champion WPtel: [address] [place], [place] [id number] ACUTE ILLNESS 11/09/2015 Patient Education: Patient Medication Summary Completed 11/09/2015 Appointment: Tammy Martinez [address] [facility] [place] Called at 9:20am.Patients rash went away over night. feeling better.-sp ACUTE ILLNESS 10/31/2015 Appointment: Tammy Martinez [address] [facility] [place] called back within minutes of scheduling to notify he could not make the appointment time. Per Dr Fink, this is a forgiven since he called back immediately to cancel the appointment.~lb RESCHEDULED 10/30/2015 Visit Plan: Rxs as above until culture r eceived Reviewed wound care Will need follow up if not improving as expected 08/15/2015 Appointment: Tammy Martinez [address] [facility] ACUTE ILLNESS 08/15/2015 Patient Education: Patient Medication [...] well 06/07/2015 Appointment: Maureen Fink WPtel: [phone] [id number] [place] 06/05-SP 06/06 Confirmed~sl ACUTE ILLNESS 06/06 Patient Education: Patient Medication Summary Completed 06/07/2015 Instructions Comment . Supportive care. Rest, Fluids, Tyleno l/Motrin prn fever or bodyaches. Notify if worsening symptoms.New toothebrush in 5 days . ERx Augmentin and Medrol Santosh Has Mucinex D at home Nasal saline, [...]
--- OUTSIDE RECORDS SUMMARY | 2019-10-13 06:55 | XMS REPORT | CCD ---
Author Author Michael Fink D.O. 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 Name Role Phone Maureen Fink D.O., PP Unavailable CCM Unavailable Summary Purpose Interface Exchange Insurance Providers Payer name Policy type / Coverage type Covered republican ID Effective Begin Date Effective End Date [facility] Commercial Insurance [id number] Unkno wn Family history Father Diagnosis Age At Onset Suicide attempt Unknown Grandfather Diagnosis Age At Onset Myocardial infarction Unknown sepsis Unknown Social History Social History Element Codes Description Effective Dates Marital status Unknown 06/07/2015 Employment Unknown Currently employed [employer] 06/07/[address]: 1552606 Former smoker 06/07/[address]: 682519 Currently drinks alcohol 06/06 Has the patient [...] Fill Instructions Zithromax 500 mg tablet RxNorm: 500186 1 Tablet(s) Oral QD 05/09/19 20 05/14/2019 Inactive Medrol (Anders) 4 mg tablets in a dose pack RxNorm: 292898 Tablet(s) Oral take as directed 03/14/2019 03/14/2019 Inactive Medrol (Anders) 4 mg tablets in a dose pack RxNorm: 639366 Tablet(s) Oral take as directed 03/14/2019 03/13/2019 Inactive Augmentin 875 mg-125 mg tablet RxNorm: 451243 1 Tablet(s) Oral two times a day 03/07/2019 03/17/2019 Inactive Zithromax 500 mg tablet RxNorm: 092300 1 Tablet(s) PO QD 08/02/2018 0 08/08/2018 Inactive omeprazole 40 mg capsule,delayed release RxNorm: 359950 1 Capsu le(s) PO QD 06/23/2018 03/06/2019 Inactive omeprazole 40 mg capsule,delayed release RxNorm: 243145 1 Capsu le(s) PO QD 06/22/2018 06/22/2018 Inactive Augmentin 875 mg-125 mg tablet RxNorm: 707525 1 Tablet(s) PO BID 06/30/2018 Inactive clindamycin HCl 300 mg capsule RxNorm: 980427 2 Capsule(s) PO TID 0 11/30/2017 12/09/2017 Inactive azithromycin 250 mg tablet RxNorm: 925561 2 Tablet(s) P O on day one then 1 tab on days 2-5 08/04/2016 08/03/2016 Inactive prednisone 20 mg tablet RxNorm: 969686 1 Tablet(s) PO QD 08/04/2016 0 08/08/2016 Inactive Augmentin 875 mg-125 mg tablet RxNorm: 394790 1 Tablet(s) PO BID 04/06/2016 Inactive Medrol (Anders) 4 mg tablets in a dose pack RxNorm: 291786 as directed Tablet(s) PO QD 03/28/2016 04/01/2016 Inactive omeprazole 40 mg capsule,delayed release RxNorm: 550768 1 Capsu le(s) PO QD 02/04/2016 08/03/2016 Inactive omeprazole 40 mg capsule,delayed release RxNorm: 678052 1 Capsu le(s) PO BID 01/14/2016 02/03/2016 Inactive clindamycin 300 mg capsule RxNorm: 313212 1 Capsule(s) PO QID 08/1408/24/2015 Inactive Bactroban 2 % topical ointment RxNorm: 678337 Apply top ically to affected area twice daily for 10 days 08/15/2015 11/08/2015 Inactive omeprazole 40 mg capsule,delayed release RxNorm: 651768 1 Capsu le(s) PO QHS 06/07/2015 08/14/2015 Inactive Humira 40 mg/0.8 mL subcutaneous syringe kit RxNorm: 731428 Milliliter(s) SQ every 2 weeks (Dr Elliott) No Start Date Active omeprazole 40 mg capsule,delayed release RxNorm: 429109 1 Capsu le(s) PO QD No Start Date 01/13/2016 Inactive Medication Administered No Medication Administered data Immunizations No Immunization data Results Observation Observation Code Item Item Code Result Date S ervice Location IRON 17641 Iron 136 ug/dL 11/15/2015 Unknown FERRITIN 50995 FERRITIN 269 ng/mL 11/15/2015 Unknown COMPREHENSIVE METABOLIC 86847 AST 19 U/L 2015 Unknown COMPREHENSIVE METABOLIC 91374 ALT 26 U/L 2015 Unknown COMPREHENSIVE METABOLIC 71530 BUN 12 mg/dL 2015 Unknown COMPREHENSIVE METABOLIC 11409 ALBUMIN 4.3 g/dL 2015 Unknown COMPREHENSIVE METABOLIC 34023 CHLORIDE 103 mmol/L 11/08 Unknown COMPREHENSIVE METABOLIC 19618 Bili Total 0.8 mg/dL 11/08 Unknown COMPREHENSIVE METABOLIC 10417 ALK PHOS 56 U/L 2015 Unknown COMPREHENSIVE METABOLIC 73534 SODIUM 135 mmol/L 11/08 Unknown COMPREHENSIVE METABOLIC 11708 CREATININE 1.08 mg/dL 08/2015 Unknown COMPREHENSIVE METABOLIC 19183 CALCIUM 9.6 mg/dL 2015 Unknown COMPREHENSIVE METABOLIC 64614 POTASSIUM 4.2 mmol/L 11/08 Unknown COMPREHENSIVE METABOLIC 88044 Total Protein 7.4 g/dL Unknown COMPREHENSIVE METABOLIC 98653 Glucose 82 mg/dL 2015 Unknown COMPREHENSIVE METABOLIC 13784 Bicarbonate 23 mmol/L 08/2015 Unknown COMPREHENSIVE METABOLIC 57813 AGAP 9 mmol/L 2015 Unknown [facility] 30189 Cholesterol 176 mg/dL 11/09/2015 Unkno wn LIP[facility] GROUP 88363 Triglyceride 81 mg/dL 11/09/2015 Unkn own L[facility] GROUP 51210 HDL CHOLESTEROL 36 mg/dL 11/09/2015 U nknown L[facility] GROUP 60074 Chol/HDL Ratio 4.89 ratio 11/09/2015 U nknown LIP[facility] GROUP 88451 NON-HDL Chol 140 mg/dL 11/09/2015 Unkn own LIP[facility] GROUP 41120 LDL Cholesterol 124 mg/dL 11/09/2015 U nknown GFR CALC 6838749 GFR Non Afr Amr >60 mL/min 11/09/2015 Un known GFR CALC 7362981 GFR Afr Amr >60 mL/min 11/09/2015 Unknow n FREE T4 77074 T4 Free 1.58 ng/dL 11/09/2015 Unknown THYROID STIMULATING HORMONE 89639 TSH 1.726 uIU/mL 11/09/2015 Unknown COMPLETE BLOOD COUNT [id number] WBC 6.2 10e9/L 11/09/19 16 Unknown COMPLETE BLOOD COUNT 1359074 RBC 5.59 10e12/L 2015 Unknown COMPLETE BLOOD COUNT 4372069 HEMOGLOBIN 18.1 g/dL 11/09/19 16 Unknown COMPLETE BLOOD COUNT [id number] HEMATOCRIT 50.1 % 11/09/19 16 Unknown COMPLETE BLOOD COUNT 3476596 MCV 89.6 fL 6 Unknown COMPLETE BLOOD COUNT [id number] MCH 32.4 pg 6 Unknown COMPLETE BLOOD COUNT 1284901 MCHC 36.1 g/dL 6 Unknown COMPLETE BLOOD COUNT 0615264 PLATELET COUNT 269 10e9/L 08/2015 Unknown COMPLETE BLOOD COUNT [id number] Mean Plt Volume 10.8 fL 08/2015 Unknown COMPLETE BLOOD COUNT 2461063 Neut Auto 47.0 % 6 Unknown COMPLETE BLOOD COUNT 7479816 Lymph Auto 33.2 % 11/09/19 16 Unknown COMPLETE BLOOD COUNT 3257583 [place] Auto 16.5 % 6 Unknown COMPLETE BLOOD COUNT 4140092 RDW 13.2 % 6 Unknown COMPLETE BLOOD COUNT 5953760 Eos Auto 2.8 % 6 Unknown COMPLETE BLOOD COUNT 2074410 Baso Auto 0.5 % 6 Unknown COMPLETE BLOOD COUNT 9641778 Neutrophil Abs 2.91 10e9/L Unknown COMPLETE BLOOD COUNT 5764716 Lymphocyte Abs 2.06 10e9/L Unknown COMPLETE BLOOD COUNT 9557815 Monocyte Abs 1.02 10e9/L 0808/2015 Unknown COMPLETE BLOOD COUNT 0863249 Eosinophil Abs 0.17 10e9/L Unknown COMPLETE BLOOD COUNT [id number] RDW-SD 42.9 fL 6 Unknown COMPLETE BLOOD COUNT [id number] Basophil Abs 0.03 10e9/L 08/0 08/2015 Unknown Procedures Procedure Codes Date STREP A ASSAY W/OPTIC CPT-4: 50912 08/02/2018 STREP A ASSAY W/OPTIC CPT-4: 07515 06/21/2018 ASSAY OF IRON CPT-4: 78275 11/09/2015 ASSAY OF FERRITIN CPT-4: 61182 11/09/2015 DRAINAGE OF SKIN ABSCESS CPT-4: 69065 08/15/2015 AEROBIC WOUND CULTURE & STN CPT-4: 21440 08/15/2015 Vital Signs Date Vital 05/09/2019 Blood [...] 1: 126/82 Code: 8480-6 BMI: 29.1 Code: 35739-0 Heart Rate 1: 72 bpm Height: 5'10" Respiratory Rate: 20 bpm SpO2: 97% Tempera ture: 36.8 (C) / 98.3 (F) Weight: 203 lbs 06/21/2018 Blood Pressure 1: 128/90 Code: 8480-6 Heart Rate 1: 80 bpm Respiratory Rate: 18 bpm SpO2: 98% Temperature: 36.7 (C) / 98.1 (F) We ight: 207 lbs 11/30/2017 Blood Pressure 1: 122/78 Code: 8480-6 BMI: 27.7 Code: 43357-8 Heart Rate 1: 76 bpm Height: 5'10" SpO2: 98% Temperature: 36.4 (C) / 97.5 (F) Weight: 193 lbs 08/04/2016 Blood Pressure 1: 122/78 Code: 8480-6 BMI: 28.1 Code: 24992-7 Heart Rate 1: 72 bpm Height: 5'10" Respiratory Rate: 22 bpm SpO2: 97% Tempera ture: 36.3 (C) / 97.3 (F) Weight: 196 lbs 03/28/2016 Blood Pressure 1: 136/74 Code: 8480-6 Heart Rate 1: 100 bpm Respiratory Rate: 24 bpm SpO2: 97% Temperature: 36.4 (C) / 97.6 (F) We ight: 198 lbs 02/04/2016 Blood Pressure 1: 112/70 Code: 8480-6 BMI: 27.6 Code: 04980-2 Heart Rate 1: 72 bpm Height: 5'11" Respiratory Rate: 20 bpm Temperature: 36 .6 (C) / 97.8 (F) Weight: 198 lbs 01/14/2016 Blood Pressure 1: 124/78 Code: 8480-6 BMI: 27.8 Code: 88420-8 Heart Rate 1: 76 bpm Height: 5'11" Respiratory Rate: 20 bpm Temperature: 36 .7 (C) / 98.0 (F) Weight: 199 lbs 11/09/2015 Blood Pressure 1: 124/78 Code: 8480-6 BMI: 27.2 Code: 46001-2 Heart Rate 1: 76 bpm Height: 5'11" Respiratory Rate: 20 bpm Temperature: 36 .7 (C) / 98.0 (F) Weight: 195 lbs 08/15/2015 Blood Pressure 1: 124/78 Code: 8480-6 Heart Rate 1: 82 bpm Respiratory Rate: 20 bpm SpO2: 97% Temperature: 35.9 (C) / 96.6 (F) We ight: 198 lbs 06/07/2015 Blood Pressure 1: 128/70 Code: 8480-6 BMI: 28.3 Code: 69087-9 Heart Rate 1: 76 bpm Height: 5'11" [...] Patient Encounters Encounter Performer Location Codes Date ([id number]) OFFICE/OUTPATIENT VISIT EST Diagnosis: Recurrent tonsillitis[ICD10: J03.91] Maureen Aleks FINK [facility] CPT-4: 61405 08/04/2019 ([id number]) OFFICE/OUTPATIENT VISIT EST Diagnosis: Acute tonsillitis, unspecified[ICD10: J03.90] Justa FINK DO [facility] CPT-4: 13047 05/09/2019 ([id number]) OFFICE/OUTPATIENT VISIT EST Diagnosis: Sinusitis[ICD10: J32.9] Diagnosis: Acute suppurative otitis media of right ear[ICD10: H66.001] Justa FINK [facility] CPT-4: 10559 03/07/2019 ([id number]) OFFICE/OUTPATIENT VISIT EST Diagnosis: Acute pharyngitis, unspecified[ICD10: J02.9] Diagnosis: Acute tonsillitis, unspecified[ICD10: J03.90] Maureen Aleks CRYSTALLINE Hossein FINK [facility] CPT-4: 81650 08/02/2018 ([id number]) OFFICE/OUTPATIENT VISIT EST Diagnosis: Acute recurrent maxillary sinusitis[ICD10: J01.01] Diagnosis: Acute pharyngitis, unspecified[ICD10: J02.9] Maryjennyfer CRYSTALLINE Hossein FINK [facility] CPT-4: 71198 06/21/2018 ([id number]) OFFICE/OUTPATIENT VISIT EST Diagnosis: Cutaneous abscess of abdominal wall[ICD10: L02.211] Maureen Coxadis MAUREEN GregTarah ALEKS [facility] CPT-4: 98184 11/30/2017 ([id number]) OFFICE/OUTPATIENT VISIT EST Diagnosis: Acute upper respiratory infection, unspecified[ICD10: J06.9] Diagnosis: Otitis media, unspecified, left ear[ICD10: H66.92] Tammy BRADLEYQUELINE GregTarah A[facility]KS [facility] CPT-4: 96476 08/04/2016 OFFICE/OUTPATIENT VISIT EST Diagnosis: Acute sinusitis, unspecified[ICD10: J01.90] Dacia BRADLEYQUELINE GregTarah ALEKS [facility] CPT-4: 50851 03/28/2016 OFFICE/OUTPATIENT VISIT EST Diagnosis: Gastro-esophageal reflux disease without esophagitis[ICD10: K21.9] Maureen HAWKINS Tarah [facility] CPT-4: 47438 02/04/2016 ([id number]) OFFICE/OUTPATIENT VISIT EST Diagnosis: Chest pain, unspecified[ICD10: R07.9] Diagnosis: Gastro-esophageal reflux disease without esophagitis[ICD10: K21.9] Diagnosis: COUGH[ICD10: R05] Maureen Cox MAUREEN Tarah [facility] CPT-4: 11867 01/14/2016 OFFICE/OUTPATIENT VISIT EST Diagnosis: Epigastric pain[ICD10: R10.13] Diagnosis: Diarrhea, unspecified[ICD10: R19.7] Diagnosis: Other specified abnormal findings of blood chemistry[ICD10: R79.89] Daciamala Champion [facility] CPT-4: 66814 11/09/2015 ([id number]) OFFICE/OUTPATIENT VISIT EST Diagnosis: Cutaneous abscess, unspecified[ICD10: L02.91] [facility]: 64584 08/15/2015 OFFICE/OUTPATIENT VISIT NEW Diagnosis: Psoriasis, unspecified[ICD10: L40.9] Diagnosis: Gastro-esophageal reflux disease without esophagitis[ICD10: K21.9] Diagnosis: Headache[ICD10: R51] Diagnosis: Cervicalgia[ICD10: M54.2] [facility] MAUREEN Catalan [facility] CPT-4: 72673 06/07/2015 Plan of Care Planned Activity Notes Codes Status Date Visit Diagnosis Plan: Recurrent tonsillitis Discussion : az video visit done Will start with throat culture If throat culture negative will need ENT evaluation ICD-9 : 463 ICD-10 : J03.91 08/04/2019 Visit Diagnosis Plan: Acute tonsillitis, unspecified D iscussion: zithromax prescribed to patient. instructed to rtc next week if he continues to have white exudate on tonsils and will proceed with culture. call office with any new or worsening symptoms. ibuprofen prn and push fluids. ICD-9 : 463 ICD-10 : J03.90 05/09/2019 Appointment: Justa Stevenson [address] [facility] ACUTE ILLNESS 05/09/2019 Visit Diagnosis Plan: Sinusitis Discussion: augmentin prescribed to cover for sinus infection and ear infection. push fluids and instructed to use tylenol/ibuprofen prn pain. call or rtc with new or worsening symptoms. ICD-9 : 473.9 ICD-10 : J32.9 03/07/2019 Appointment: Justa Stevenson [address] ACUTE ILLNESS 03/07/2019 Visit Plan: Supportive care. [...] Supportive care. Rest, Fluids... 08/02/2018 Appointment: Maureen Finktel: [facility] [address] ACUTE ILLNESS 08/02/2018 Visit Diagnosis Plan: Acute recurrent maxillary sinusi tis Discussion: Strep A- negative. Treating for sinusitis. Augmentin- take as directed. Sinus rinses encouraged. Salt water gargles. Fluids, rest, Tylenol or Motrin for pain and fever. Make annual wellness visit when checking out. Patient states understanding. ICD-9 : 461.0 ICD-10 : J01.01 06/21/2018 Appointment: Mary Elder [address] ACUTE ILLNESS 06/21/2018 Visit Diagnosis Plan: Cutaneous abscess of abdominal w all Discussion: Some bloody discharge expressed but no pus--his got old blood and pus out last night Warm compresses and clindamycin and notify if worsens or persists ICD-9 : 682.2 ICD-10 : L02.211 11/30/2017 Appointment: Maureen Finkl: [address] [place], [place] [phone] ACUTE ILLNESS 11/30/2017 Patient Education: Patient Medication Summary Completed 11/30/2017 Visit Diagnosis Plan: Acute upper respiratory infectio n, unspecified Discussion: Continue OTC meds and home remedies Rxs as above Notifiy prescriber of humira of treatment plan Rest, fluids, vicks, humidifier, etc Follow up PRN ICD-9 : 465.9 ICD-10 : J06.9 08/04/2016 Appointment: Tammy Martinez [address] [place] [address] ACUTE ILLNESS 08/04/2016 Patient Education: Patient Medication Summary Completed 08/04/2016 Visit Plan: ERx Augmentin and Medrol Dos pack Has Mucinex D at home Nasal saline, humidified air, Tylenol/ibuprofen prn Discussed s/s of worsening, go to UC/ over weekend if needed 03/28/2016 Appointment: Dacia Champion WPtel: [address] [place] [address] ACUTE ILLNESS 03/28/2016 Patient Education: Patient Medication Summary Completed 03/28/2016 Visit Plan: Finish omeprazole at 40mg po BID for full month then decrease to 40mg daily for 1month then if no return of symptoms will decrease to 20mg daily for 1month then fwup 02/04/2016 Appointment: Maureen Fink WPtel: [address] [place], [place] [phone] 01/30 confirmed`sl FOLLOW UP 02/04/2016 Patient Education: Patient Medication Summary Completed 02/04/2016 Patient Education: [facility] - Prilosec - 1st Mo Free - Odd Pa tientIDs Completed 02/04/2016 Visit Plan: No caffeine, no nicotine, no alcohol, no mints, no late meals, elevate HOB 30 degrees Omeprazole 40mg po BID Check CXR and EKG 01/14/2016 Appointment: Maureen Fink WPtel: [address] [place], [place] [phone] ACUTE ILLNESS 01/14/2016 Patient Education: Patient Medication Summary Completed 01/14/2016 Care Plan: CHEST X-RAY 2VW FRONTAL&LATL LOINC : 76677-9 Pending 01/14/2016 Appointment: Maureen Fink WPtel: [address] [place], [place] [phone] 11/[address] sterling [place] visit~sl RESCHEDULED 0 11/21/2015 Care Plan: ECHO EXAM OF ABDOMEN LOINC : 42357-7 Pending 11/10/2015 Visit Plan: Declines medication for bipinr beverley Declines stool studies CMP, CBC, TSH, Lipids (history of hyperlipidemia) GB U/S RTC/ER for worsening Discussed correlation with high fat foods, avoid. 11/09/2015 Appointment: Dacia Champion WPtel: [address] [place] [address] ACUTE ILLNESS 11/09/2015 Patient Education: Patient Medication Summary Completed 11/09/2015 Appointment: Tammy Martinez [address] [place], [place] [phone] [place] Called at 9:20am.Patients rash went away over night. feeling better.-sp ACUTE ILLNESS 10/31/2015 Appointment: Tammy Martinez [address] [place], [place] [phone] [place] called back within minutes of scheduling to notify he could not make the appointment time. Per Dr Fink, this is a forgiven since he called back immediately to cancel the appointment.~lb RESCHEDULED 10/30/2015 Visit Plan: Rxs as above until culture r eceived Reviewed wound care Will need follow up if not improving as expected 08/15/2015 Appointment: Tammy Martinez [address] [place], [place] [phone] ACUTE ILLNESS 08/15/2015 Patient Education: Patient Medication [...] as well 06/07/2015 Appointment: Maureen Fink WPtel: [facility] 06/05-SP 06/06 Confirmed~sl ACUTE ILLNESS 06/06 Patient [...]
--- OUTSIDE RECORDS SUMMARY | 2019-10-13 06:55 | XMS REPORT | CCD ---
Author Author Michael Fink D.O. Organization MAUREEN FINK DO [facility] Address [address] [place] [address] Phone Care Team Providers Care Burner Shaft Name Role Phone Maureen Fink D.O., PP Unavailable CCM Unavailable Summary Purpose Interface Exchange Insurance Providers Payer name Policy type / Coverage type Covered constitution party ID Effective Begin Date Effective End Date [facility] Commercial Insurance [id number] Unkno wn Family history Father Diagnosis Age At Onset Suicide attempt Unknown Grandfather Diagnosis Age At Onset Myocardial infarction Unknown sepsis Unknown Social History Social History Element Codes Description Effective Dates Marital status Unknown 06/07/2015 Employment Unknown Currently employed [employer] 06/07/[address]: 9643445 Former smoker 06/07/[address]: 103034 Currently drinks alcohol 06/06 Has the patient [...] Fill Instructions Zithromax 500 mg tablet RxNorm: 259394 1 Tablet(s) Oral QD 05/09/19 20 05/14/2019 Inactive Medrol (Anders) 4 mg tablets in a dose pack RxNorm: 296646 Tablet(s) Oral take as directed 03/14/2019 03/14/2019 Inactive Medrol (Anders) 4 mg tablets in a dose pack RxNorm: 289410 Tablet(s) Oral take as directed 03/14/2019 03/13/2019 Inactive Augmentin 875 mg-125 mg tablet RxNorm: 905791 1 Tablet(s) Oral two times a day 03/07/2019 03/17/2019 Inactive Zithromax 500 mg tablet RxNorm: 727919 1 Tablet(s) PO QD 08/02/2018 0 08/08/2018 Inactive omeprazole 40 mg capsule,delayed release RxNorm: 099948 1 Capsu le(s) PO QD 06/23/2018 03/06/2019 Inactive omeprazole 40 mg capsule,delayed release RxNorm: 967086 1 Capsu le(s) PO QD 06/22/2018 06/22/2018 Inactive Augmentin 875 mg-125 mg tablet RxNorm: 345144 1 Tablet(s) PO BID 06/30/2018 Inactive clindamycin HCl 300 mg capsule RxNorm: 774288 2 Capsule(s) PO TID 0 11/30/2017 12/09/2017 Inactive azithromycin 250 mg tablet RxNorm: 963710 2 Tablet(s) P O on day one then 1 tab on days 2-5 08/04/2016 08/03/2016 Inactive prednisone 20 mg tablet RxNorm: 395438 1 Tablet(s) PO QD 08/04/2016 0 08/08/2016 Inactive Augmentin 875 mg-125 mg tablet RxNorm: 508119 1 Tablet(s) PO BID 04/06/2016 Inactive Medrol (Anders) 4 mg tablets in a dose pack RxNorm: 574872 as directed Tablet(s) PO QD 03/28/2016 04/01/2016 Inactive omeprazole 40 mg capsule,delayed release RxNorm: 481023 1 Capsu le(s) PO QD 02/04/2016 08/03/2016 Inactive omeprazole 40 mg capsule,delayed release RxNorm: 790272 1 Capsu le(s) PO BID 01/14/2016 02/03/2016 Inactive clindamycin 300 mg capsule RxNorm: 446260 1 Capsule(s) PO QID 08/1408/24/2015 Inactive Bactroban 2 % topical ointment RxNorm: 322047 Apply top ically to affected area twice daily for 10 days 08/15/2015 11/08/2015 Inactive omeprazole 40 mg capsule,delayed release RxNorm: 131585 1 Capsu le(s) PO QHS 06/07/2015 08/14/2015 Inactive Humira 40 mg/0.8 mL subcutaneous syringe kit RxNorm: 396538 Milliliter(s) SQ every 2 weeks (Dr Elliott) No Start Date Active omeprazole 40 mg capsule,delayed release RxNorm: 469375 1 Capsu le(s) PO QD No Start Date 01/13/2016 Inactive Medication Administered No Medication Administered data Immunizations No Immunization data Results Observation Observation Code Item Item Code Result Date S ervice Location IRON 11295 Iron 136 ug/dL 11/15/2015 Unknown FERRITIN 11498 FERRITIN 269 ng/mL 11/15/2015 Unknown COMPREHENSIVE METABOLIC 12427 AST 19 U/L 2015 Unknown COMPREHENSIVE METABOLIC 13212 ALT 26 U/L 2015 Unknown COMPREHENSIVE METABOLIC 56648 BUN 12 mg/dL 2015 Unknown COMPREHENSIVE METABOLIC 79984 ALBUMIN 4.3 g/dL 2015 Unknown COMPREHENSIVE METABOLIC 36301 CHLORIDE 103 mmol/L 11/08 Unknown COMPREHENSIVE METABOLIC 84019 Bili Total 0.8 mg/dL 11/08 Unknown COMPREHENSIVE METABOLIC 64440 ALK PHOS 56 U/L 2015 Unknown COMPREHENSIVE METABOLIC 38059 SODIUM 135 mmol/L 11/08 Unknown COMPREHENSIVE METABOLIC 89144 CREATININE 1.08 mg/dL 08/2015 Unknown COMPREHENSIVE METABOLIC 77794 CALCIUM 9.6 mg/dL 2015 Unknown COMPREHENSIVE METABOLIC 99048 POTASSIUM 4.2 mmol/L 11/08 Unknown COMPREHENSIVE METABOLIC 55157 Total Protein 7.4 g/dL Unknown COMPREHENSIVE METABOLIC 70611 Glucose 82 mg/dL 2015 Unknown COMPREHENSIVE METABOLIC 93702 Bicarbonate 23 mmol/L 08/2015 Unknown COMPREHENSIVE METABOLIC 83901 AGAP 9 mmol/L 2015 Unknown [facility] 84657 Cholesterol 176 mg/dL 11/09/2015 Unkno wn LIP[facility] GROUP 72622 Triglyceride 81 mg/dL 11/09/2015 Unkn own LIP[facility] GROUP 81324 HDL CHOLESTEROL 36 mg/dL 11/09/2015 U nknown L[facility] GROUP 23028 Chol/HDL Ratio 4.89 ratio 11/09/2015 U nknown LIP[facility] GROUP 22672 NON-HDL Chol 140 mg/dL 11/09/2015 Unkn own LIP[facility] GROUP 05573 LDL Cholesterol 124 mg/dL 11/09/2015 U nknown GFR CALC 5562268 GFR Non Afr Amr >60 mL/min 11/09/2015 Un known GFR CALC 9873928 GFR Afr Amr >60 mL/min 11/09/2015 Unknow n FREE T4 18870 T4 Free 1.58 ng/dL 11/09/2015 Unknown THYROID STIMULATING HORMONE 90970 TSH 1.726 uIU/mL 11/09/2015 Unknown COMPLETE BLOOD COUNT 6062968 WBC 6.2 10e9/L 11/09/19 16 Unknown COMPLETE BLOOD COUNT 9138890 RBC 5.59 10e12/L 2015 Unknown COMPLETE BLOOD COUNT 1588550 HEMOGLOBIN 18.1 g/dL 11/09/19 16 Unknown COMPLETE BLOOD COUNT 1468052 HEMATOCRIT 50.1 % 11/09/19 16 Unknown COMPLETE BLOOD COUNT 3381507 MCV 89.6 fL 6 Unknown COMPLETE BLOOD COUNT 8537121 MCH 32.4 pg 6 Unknown COMPLETE BLOOD COUNT 4621201 MCHC 36.1 g/dL 6 Unknown COMPLETE BLOOD COUNT 8012228 PLATELET COUNT 269 10e9/L 08/2015 Unknown COMPLETE BLOOD COUNT 3720910 Mean Plt Volume 10.8 fL 08/2015 Unknown COMPLETE BLOOD COUNT 4611001 Neut Auto 47.0 % 6 Unknown COMPLETE BLOOD COUNT 0439696 Lymph Auto 33.2 % 11/09/19 16 Unknown COMPLETE BLOOD COUNT 6161318 [place] Auto 16.5 % 6 Unknown COMPLETE BLOOD COUNT 9105543 RDW 13.2 % 6 Unknown COMPLETE BLOOD COUNT 8926851 Eos Auto 2.8 % 6 Unknown COMPLETE BLOOD COUNT 7932918 Baso Auto 0.5 % 6 Unknown COMPLETE BLOOD COUNT 9372042 Neutrophil Abs 2.91 10e9/L Unknown COMPLETE BLOOD COUNT [id number] Lymphocyte Abs 2.06 10e9/L Unknown COMPLETE BLOOD COUNT 6345260 Monocyte Abs 1.02 10e9/L 0808/2015 Unknown COMPLETE BLOOD COUNT 3473493 Eosinophil Abs 0.17 10e9/L Unknown COMPLETE BLOOD COUNT [id number] RDW-SD 42.9 fL 6 Unknown COMPLETE BLOOD COUNT [id number] Basophil Abs 0.03 10e9/L 08/0 08/2015 Unknown Procedures Procedure Codes Date STREP A ASSAY W/OPTIC CPT-4: 97477 08/02/2018 STREP A ASSAY W/OPTIC CPT-4: 05856 06/21/2018 ASSAY OF IRON CPT-4: 22431 11/09/2015 ASSAY OF FERRITIN CPT-4: 83162 11/09/2015 DRAINAGE OF SKIN ABSCESS CPT-4: 43701 08/15/2015 AEROBIC WOUND CULTURE & STN CPT-4: 80135 08/15/2015 Vital Signs Date Vital 05/09/2019 Blood [...] 1: 126/82 Code: 8480-6 BMI: 29.1 Code: 13672-6 Heart Rate 1: 72 bpm Height: 5'10" Respiratory Rate: 20 bpm SpO2: 97% Tempera ture: 36.8 (C) / 98.3 (F) Weight: 203 lbs 06/21/2018 Blood Pressure 1: 128/90 Code: 8480-6 Heart Rate 1: 80 bpm Respiratory Rate: 18 bpm SpO2: 98% Temperature: 36.7 (C) / 98.1 (F) We ight: 207 lbs 11/30/2017 Blood Pressure 1: 122/78 Code: 8480-6 BMI: 27.7 Code: 67065-7 Heart Rate 1: 76 bpm Height: 5'10" SpO2: 98% Temperature: 36.4 (C) / 97.5 (F) Weight: 193 lbs 08/04/2016 Blood Pressure 1: 122/78 Code: 8480-6 BMI: 28.1 Code: 96669-5 Heart Rate 1: 72 bpm Height: 5'10" Respiratory Rate: 22 bpm SpO2: 97% Tempera ture: 36.3 (C) / 97.3 (F) Weight: 196 lbs 03/28/2016 Blood Pressure 1: 136/74 Code: 8480-6 Heart Rate 1: 100 bpm Respiratory Rate: 24 bpm SpO2: 97% Temperature: 36.4 (C) / 97.6 (F) We ight: 198 lbs 02/04/2016 Blood Pressure 1: 112/70 Code: 8480-6 BMI: 27.6 Code: 35010-4 Heart Rate 1: 72 bpm Height: 5'11" Respiratory Rate: 20 bpm Temperature: 36 .6 (C) / 97.8 (F) Weight: 198 lbs 01/14/2016 Blood Pressure 1: 124/78 Code: 8480-6 BMI: 27.8 Code: 00474-5 Heart Rate 1: 76 bpm Height: 5'11" Respiratory Rate: 20 bpm Temperature: 36 .7 (C) / 98.0 (F) Weight: 199 lbs 11/09/2015 Blood Pressure 1: 124/78 Code: 8480-6 BMI: 27.2 Code: 96231-2 Heart Rate 1: 76 bpm Height: 5'11" Respiratory Rate: 20 bpm Temperature: 36 .7 (C) / 98.0 (F) Weight: 195 lbs 08/15/2015 Blood Pressure 1: 124/78 Code: 8480-6 Heart Rate 1: 82 bpm Respiratory Rate: 20 bpm SpO2: 97% Temperature: 35.9 (C) / 96.6 (F) We ight: 198 lbs 06/07/2015 Blood Pressure 1: 128/70 Code: 8480-6 BMI: 28.3 Code: 88445-3 Heart Rate 1: 76 bpm Height: 5'11" [...] Patient Encounters Encounter Performer Location Codes Date (13441) OFFICE/OUTPATIENT VISIT EST Diagnosis: Recurrent tonsillitis[ICD10: J03.91] Maureen Aleks FINK [facility] CPT-4: 42055 08/04/2019 ([id number]) OFFICE/OUTPATIENT VISIT EST Diagnosis: Acute tonsillitis, unspecified[ICD10: J03.90] Justa FINK DO [facility] CPT-4: 70193 05/09/2019 ([id number]) OFFICE/OUTPATIENT VISIT EST Diagnosis: Sinusitis[ICD10: J32.9] Diagnosis: Acute suppurative otitis media of right ear[ICD10: H66.001] Justa FINK [facility] CPT-4: 03638 03/07/2019 ([id number]) OFFICE/OUTPATIENT VISIT EST Diagnosis: Acute pharyngitis, unspecified[ICD10: J02.9] Diagnosis: Acute tonsillitis, unspecified[ICD10: J03.90] Maureen Aleks CRYSTALLINE Hossein FINK [facility] CPT-4: 00317 08/02/2018 ([id number]) OFFICE/OUTPATIENT VISIT EST Diagnosis: Acute recurrent maxillary sinusitis[ICD10: J01.01] Diagnosis: Acute pharyngitis, unspecified[ICD10: J02.9] Maryjennyfer CRYSTALLINE Hossein FINK [facility] CPT-4: 32155 06/21/2018 ([id number]) OFFICE/OUTPATIENT VISIT EST Diagnosis: Cutaneous abscess of abdominal wall[ICD10: L02.211] Maureen Coxadis MAUREEN GregTarah ALEKS [facility] CPT-4: 42467 11/30/2017 ([id number]) OFFICE/OUTPATIENT VISIT EST Diagnosis: Acute upper respiratory infection, unspecified[ICD10: J06.9] Diagnosis: Otitis media, unspecified, left ear[ICD10: H66.92] Tammy BRADLEYQUELINE GregTarah [facility] CPT-4: 13924 08/04/2016 OFFICE/OUTPATIENT VISIT EST Diagnosis: Acute sinusitis, unspecified[ICD10: J01.90] Dacia BRADLEYQUELINE GregTarah [facility] CPT-4: 49689 03/28/2016 OFFICE/OUTPATIENT VISIT EST Diagnosis: Gastro-esophageal reflux disease without esophagitis[ICD10: K21.9] Maureen HAWKINS Tarah [facility] CPT-4: 78635 02/04/2016 ([id number]) OFFICE/OUTPATIENT VISIT EST Diagnosis: Chest pain, unspecified[ICD10: R07.9] Diagnosis: Gastro-esophageal reflux disease without esophagitis[ICD10: K21.9] Diagnosis: COUGH[ICD10: R05] Maureen Cox MAUREEN Tarah [facility] CPT-4: 04489 01/14/2016 OFFICE/OUTPATIENT VISIT EST Diagnosis: Epigastric pain[ICD10: R10.13] Diagnosis: Diarrhea, unspecified[ICD10: R19.7] Diagnosis: Other specified abnormal findings of blood chemistry[ICD10: R79.89] Daciamala Champion [facility] CPT-4: 04442 11/09/2015 ([id number]) OFFICE/OUTPATIENT VISIT EST Diagnosis: Cutaneous abscess, unspecified[ICD10: L02.91] [facility] 64156 08/15/2015 OFFICE/OUTPATIENT VISIT NEW Diagnosis: Psoriasis, unspecified[ICD10: L40.9] Diagnosis: Gastro-esophageal reflux disease without esophagitis[ICD10: K21.9] Diagnosis: Headache[ICD10: R51] Diagnosis: Cervicalgia[ICD10: M54.2] [facility]UREEN Catalan [facility] CPT-4: 71256 06/07/2015 Plan of Care Planned Activity Notes Codes Status Date Visit Diagnosis Plan: Recurrent tonsillitis Discussion : mn video visit done Will start with throat [...] : J03.90 05/09/2019 Appointment: Justa Stevenson [address] [facility] ACUTE ILLNESS 05/09/2019 Visit Diagnosis Plan: Sinusitis Discussion: augmentin prescribed to cover for sinus infection and ear infection. push fluids and instructed to use tylenol/ibuprofen prn pain. call or rtc with new or worsening symptoms. ICD-9 : 473.9 ICD-10 : J32.9 03/07/2019 Appointment: Justa Stevenson [address] ACUTE ILLNESS 03/07/2019 Visit Plan: Supportive [...] care. Rest, Fluids... 08/02/2018 Appointment: Maureen Finktel: [facility] ACUTE ILLNESS 08/02/2018 Visit Diagnosis Plan: Acute recurrent maxillary sinusi tis Discussion: Strep A- negative. Treating for sinusitis. Augmentin- take as directed. Sinus rinses encouraged. Salt water gargles. Fluids, rest, Tylenol or Motrin for pain and fever. Make annual wellness visit when checking out. Patient states understanding. ICD-9 : 461.0 ICD-10 : J01.01 06/21/2018 Appointment: Mary Elder [address] ACUTE ILLNESS 06/21/2018 Visit Diagnosis Plan: Cutaneous abscess of abdominal w all Discussion: Some bloody discharge expressed but no pus--his got old blood and pus out last night Warm compresses and clindamycin and notify if worsens or persists ICD-9 : 682.2 ICD-10 : L02.211 11/30/2017 Appointment: Maureen Finkl: [address] [place], [place] [id number] ACUTE ILLNESS 11/30/2017 Patient Education: Patient Medication Summary Completed 11/30/2017 Visit Diagnosis Plan: Acute upper respiratory infectio n, unspecified Discussion: Continue OTC meds and home remedies Rxs as above Notifiy prescriber of humira of treatment plan Rest, fluids, vicks, humidifier, etc Follow up PRN ICD-9 : 465.9 ICD-10 : J06.9 08/04/2016 Appointment: Tammy Martinez [address] [place] [address] ACUTE ILLNESS 08/04/2016 Patient Education: Patient Medication Summary Completed 08/04/2016 Visit Plan: ERx Augmentin and Medrol Dos pack Has Mucinex D at home Nasal saline, humidified air, Tylenol/ibuprofen prn Discussed s/s of worsening, go to UC/ over weekend if needed 03/28/2016 Appointment: Dacia Champion WPtel: [address] [place] [address] ACUTE ILLNESS 03/28/2016 Patient Education: Patient Medication Summary Completed 03/28/2016 Visit Plan: Finish omeprazole at 40mg po BID for full month then decrease to 40mg daily for 1month then if no return of symptoms will decrease to 20mg daily for 1month then fwup 02/04/2016 Appointment: Maureen Fink WPtel: [address] [place], [place] [phone] 01/30 confirmed`sl FOLLOW UP 02/04/2016 Patient Education: Patient Medication Summary Completed 02/04/2016 Patient Education: [facility] - Prilosec - 1st Mo Free - Odd Pa tientIDs Completed 02/04/2016 Visit Plan: No caffeine, no nicotine, no alcohol, no mints, no late meals, elevate HOB 30 degrees Omeprazole 40mg po BID Check CXR and EKG 01/14/2016 Appointment: Maureen Fink WPtel: [address] [place], [place] [phone] ACUTE ILLNESS 01/14/2016 Patient Education: Patient Medication Summary Completed 01/14/2016 Care Plan: CHEST X-RAY 2VW FRONTAL&LATL LOINC : 33227-0 Pending 01/14/2016 Appointment: Maureen Fink WPtel: [address] [place], [place] [phone] 11/[address] sterling [place] visit~sl RESCHEDULED 0 11/21/2015 Care Plan: ECHO EXAM OF ABDOMEN LOINC : 95809-6 Pending 11/10/2015 Visit Plan: Declines medication for bipinr beverley Declines stool studies CMP, CBC, TSH, Lipids (history of hyperlipidemia) GB U/S RTC/ER for worsening Discussed correlation with high fat foods, avoid. 11/09/2015 Appointment: Dacia Champion WPtel: [address] [place] [address] ACUTE ILLNESS 11/09/2015 Patient Education: Patient Medication Summary Completed 11/09/2015 Appointment: Tammy Martinez [address] [place], [place] [phone] [place] Called at 9:20am.Patients rash went away over night. feeling better.-sp ACUTE ILLNESS 10/31/2015 Appointment: Tammy Martinez [address] [place], [place] [phone] [place] called back within minutes of scheduling to notify he could not make the appointment time. Per Dr Fink, this is a forgiven since he called back immediately to cancel the appointment.~lb RESCHEDULED 10/30/2015 Visit Plan: Rxs as above until culture r eceived Reviewed wound care Will need follow up if not improving as expected 08/15/2015 Appointment: Tammy Martinez [address] [place], [place] [phone] ACUTE ILLNESS 08/15/2015 Patient Education: Patient Medication [...] as well 06/07/2015 Appointment: Maureen Fink WPtel: [facility] 06/05-SP 06/06 Confirmed~sl ACUTE ILLNESS 06/06 Patient [...]
--- OUTSIDE RECORDS SUMMARY | 2019-10-13 06:55 | XMS REPORT | CCD ---
Author Author Michael Fink D.O. Organization [facility] Address [address] [place] [address] Phone Care Team Providers Care Uptwist Spinner Name Role Phone Ross Fink D.O., PP Unavailable CCM Unavailable Summary Purpose Interface Exchange Insurance Providers Payer name Policy type / Coverage type Covered green party ID Effective Begin Date Effective End Date [facility] Commercial Insurance [id number] Unkno wn Family history Father Diagnosis Age At Onset Suicide attempt Unknown Grandfather Diagnosis Age At Onset Myocardial infarction Unknown sepsis Unknown Social History Social History Element Codes Description Effective Dates Marital status Unknown 06/07/2015 Employment Unknown Currently employed [employer] 06/07/[address]: 6366536 Former smoker 06/07/[address]: 579891 Currently drinks alcohol 06/06 Has the patient [...] Problems Condition Codes Effective Dates Condition Status Acute tonsillitis, unspecified ICD-9: 463 ICD-10: J03.90 08/02/2018 Active Acute suppurative otitis media of right ear ICD-9: 382 .00 ICD-10: H66.001 03/07/2019 Active Sinusitis ICD-9: 473.9 ICD-10: J32.9 03/07/2019 Active Acute pharyngitis, unspecified ICD-9: 462 ICD-10: J02.9 06/21/2018 Active Acute recurrent maxillary sinusitis ICD-9: 461.0 ICD-10: J01.06/21/2018 Active Cutaneous abscess of abdominal wall ICD-9: [...] Fill Instructions Zithromax 500 mg tablet RxNorm: 501886 1 Tablet(s) Oral QD 05/09/19 20 05/14/2019 Active Medrol (Anders) 4 mg tablets in a dose pack RxNorm: 514831 Tablet(s) Oral take as directed 03/14/2019 03/14/2019 Inactive Medrol (Anders) 4 mg tablets in a dose pack RxNorm: 479480 Tablet(s) Oral take as directed 03/14/2019 03/13/2019 Inactive Augmentin 875 mg-125 mg tablet RxNorm: 342326 1 Tablet(s) Oral two times a day 03/07/2019 03/17/2019 Inactive Zithromax 500 mg tablet RxNorm: 168784 1 Tablet(s) PO QD 08/02/2018 0 08/08/2018 Inactive omeprazole 40 mg capsule,delayed release RxNorm: 801982 1 Capsu le(s) PO QD 06/23/2018 03/06/2019 Inactive omeprazole 40 mg capsule,delayed release RxNorm: 368058 1 Capsu le(s) PO QD 06/22/2018 06/22/2018 Inactive Augmentin 875 mg-125 mg tablet RxNorm: 292701 1 Tablet(s) PO BID 06/30/2018 Inactive clindamycin HCl 300 mg capsule RxNorm: 379103 2 Capsule(s) PO TID 0 11/30/2017 12/09/2017 Inactive azithromycin 250 mg tablet RxNorm: 310376 2 Tablet(s) P O on day one then 1 tab on days 2-5 08/04/2016 08/03/2016 Inactive prednisone 20 mg tablet RxNorm: 031616 1 Tablet(s) PO QD 08/04/2016 0 08/08/2016 Inactive Augmentin 875 mg-125 mg tablet RxNorm: 349386 1 Tablet(s) PO BID 04/06/2016 Inactive Medrol (Anders) 4 mg tablets in a dose pack RxNorm: 132562 as directed Tablet(s) PO QD 03/28/2016 04/01/2016 Inactive omeprazole 40 mg capsule,delayed release RxNorm: 485352 1 Capsu le(s) PO QD 02/04/2016 08/03/2016 Inactive omeprazole 40 mg capsule,delayed release RxNorm: 410972 1 Capsu le(s) PO BID 01/14/2016 02/03/2016 Inactive clindamycin 300 mg capsule RxNorm: 210487 1 Capsule(s) PO QID 08/1408/24/2015 Inactive Bactroban 2 % topical ointment RxNorm: 070312 Apply top ically to affected area twice daily for 10 days 08/15/2015 11/08/2015 Inactive omeprazole 40 mg capsule,delayed release RxNorm: 084326 1 Capsu le(s) PO QHS 06/07/2015 08/14/2015 Inactive Humira 40 mg/0.8 mL subcutaneous syringe kit RxNorm: 356919 Milliliter(s) SQ every 2 weeks (Dr Elliott) No Start Date Active omeprazole 40 mg capsule,delayed release RxNorm: 552133 1 Capsu le(s) PO QD No Start Date 01/13/2016 Inactive Medication Administered No Medication Administered data Immunizations No Immunization data Results Observation Observation Code Item Item Code Result Date S [facility] Location IRON 81539 Iron 136 ug/dL 11/15/2015 Unknown FERRITIN 10498 FERRITIN 269 ng/mL 11/15/2015 Unknown COMPREHENSIVE METABOLIC 81624 AST 19 U/L 2015 Unknown COMPREHENSIVE METABOLIC 92059 ALT 26 U/L 2015 Unknown COMPREHENSIVE METABOLIC 21405 BUN 12 mg/dL 2015 Unknown COMPREHENSIVE METABOLIC 85939 ALBUMIN 4.3 g/dL 2015 Unknown COMPREHENSIVE METABOLIC 31643 CHLORIDE 103 mmol/L 11/08 Unknown COMPREHENSIVE METABOLIC 30949 Bili Total 0.8 mg/dL 11/08 Unknown COMPREHENSIVE METABOLIC 61984 ALK PHOS 56 U/L 2015 Unknown COMPREHENSIVE METABOLIC 69157 SODIUM 135 mmol/L 11/08 Unknown COMPREHENSIVE METABOLIC 65506 CREATININE 1.08 mg/dL 08/2015 Unknown COMPREHENSIVE METABOLIC 90654 CALCIUM 9.6 mg/dL 2015 Unknown COMPREHENSIVE METABOLIC 49422 POTASSIUM 4.2 mmol/L 11/08 Unknown COMPREHENSIVE METABOLIC 95342 Total Protein 7.4 g/dL Unknown COMPREHENSIVE METABOLIC 84929 Glucose 82 mg/dL 2015 Unknown COMPREHENSIVE METABOLIC 32402 Bicarbonate 23 mmol/L 08/2015 Unknown COMPREHENSIVE METABOLIC 94497 AGAP 9 mmol/L 2015 Unknown LIPID GROUP 03831 Cholesterol 176 mg/dL 11/09/2015 Unkno wn LIPID GROUP 78437 Triglyceride 81 mg/dL 11/09/2015 Unkn own LIPID GROUP 73105 HDL CHOLESTEROL 36 mg/dL 11/09/2015 U nknown LIPID GROUP 95492 Chol/HDL Ratio 4.89 ratio 11/09/2015 U nknown LIPID GROUP 07079 NON-HDL Chol 140 mg/dL 11/09/2015 Unkn own LIPID GROUP 22687 LDL Cholesterol 124 mg/dL 11/09/2015 U nknown GFR CALC 9182181 GFR Non Afr Amr >60 mL/min 11/09/2015 Un known GFR CALC [id number] GFR Afr Amr >60 mL/min 11/09/2015 Unknow n FREE T4 20590 T4 Free 1.58 ng/dL 11/09/2015 Unknown THYROID STIMULATING HORMONE 11771 TSH 1.726 uIU/mL 11/09/2015 Unknown COMPLETE BLOOD COUNT 6709161 WBC 6.2 10e9/L 11/09/19 16 Unknown COMPLETE BLOOD COUNT 3592566 RBC 5.59 10e12/L 2015 Unknown COMPLETE BLOOD COUNT 5427001 HEMOGLOBIN 18.1 g/dL 11/09/19 16 Unknown COMPLETE BLOOD COUNT 6685950 HEMATOCRIT 50.1 % 11/09/19 16 Unknown COMPLETE BLOOD COUNT 7540200 MCV 89.6 fL 6 Unknown COMPLETE BLOOD COUNT 3164924 MCH 32.4 pg 6 Unknown COMPLETE BLOOD COUNT 3863183 MCHC 36.1 g/dL 6 Unknown COMPLETE BLOOD COUNT [id number] PLATELET COUNT 269 10e9/L 08/2015 Unknown COMPLETE BLOOD COUNT 1474482 Mean Plt Volume 10.8 fL 08/2015 Unknown COMPLETE BLOOD COUNT 1306086 Neut Auto 47.0 % 6 Unknown COMPLETE BLOOD COUNT 5835529 Lymph Auto 33.2 % 11/09/19 16 Unknown COMPLETE BLOOD COUNT 4874174 Seward Auto 16.5 % 6 Unknown COMPLETE BLOOD COUNT 3051521 RDW 13.2 % 6 Unknown COMPLETE BLOOD COUNT 4829533 Eos Auto 2.8 % 6 Unknown COMPLETE BLOOD COUNT 4504524 Baso Auto 0.5 % 6 Unknown COMPLETE BLOOD COUNT 0877756 Neutrophil Abs 2.91 10e9/L Unknown COMPLETE BLOOD COUNT 9838895 Lymphocyte Abs 2.06 10e9/L Unknown COMPLETE BLOOD COUNT [id number] Monocyte Abs 1.02 10e9/L 08/2015 Unknown COMPLETE BLOOD COUNT 2343698 Eosinophil Abs 0.17 10e9/L Unknown COMPLETE BLOOD COUNT 1159855 RDW-SD 42.9 fL 6 Unknown COMPLETE BLOOD COUNT [id number] Basophil Abs 0.03 10e9/L 08/2015 Unknown Procedures Procedure Codes Date STREP A ASSAY W/OPTIC CPT-4: 17760 08/02/2018 STREP A ASSAY W/OPTIC CPT-4: 26802 06/21/2018 ASSAY OF IRON CPT-4: 06701 11/09/2015 ASSAY OF FERRITIN CPT-4: 33737 11/09/2015 DRAINAGE OF SKIN ABSCESS CPT-4: 80452 08/15/2015 AEROBIC WOUND CULTURE & STN CPT-4: 76291 08/15/2015 Vital Signs Date Vital 05/09/2019 Blood [...] 1: 126/82 Code: 8480-6 BMI: 29.1 Code: 92501-2 Heart Rate 1: 72 bpm Height: 5'10" Respiratory Rate: 20 bpm SpO2: 97% Tempera ture: 36.8 (C) / 98.3 (F) Weight: 203 lbs 06/21/2018 Blood Pressure 1: 128/90 Code: 8480-6 Heart Rate 1: 80 bpm Respiratory Rate: 18 bpm SpO2: 98% Temperature: 36.7 (C) / 98.1 (F) We ight: 207 lbs 11/30/2017 Blood Pressure 1: 122/78 Code: 8480-6 BMI: 27.7 Code: 86455-8 Heart Rate 1: 76 bpm Height: 5'10" SpO2: 98% Temperature: 36.4 (C) / 97.5 (F) Weight: 193 lbs 08/04/2016 Blood Pressure 1: 122/78 Code: 8480-6 BMI: 28.1 Code: 61279-8 Heart Rate 1: 72 bpm Height: 5'10" Respiratory Rate: 22 bpm SpO2: 97% Tempera ture: 36.3 (C) / 97.3 (F) Weight: 196 lbs 03/28/2016 Blood Pressure 1: 136/74 Code: 8480-6 Heart Rate 1: 100 bpm Respiratory Rate: 24 bpm SpO2: 97% Temperature: 36.4 (C) / 97.6 (F) We ight: 198 lbs 02/04/2016 Blood Pressure 1: 112/70 Code: 8480-6 BMI: 27.6 Code: 97992-2 Heart Rate 1: 72 bpm Height: 5'11" Respiratory Rate: 20 bpm Temperature: 36 .6 (C) / 97.8 (F) Weight: 198 lbs 01/14/2016 Blood Pressure 1: 124/78 Code: 8480-6 BMI: 27.8 Code: 23270-9 Heart Rate 1: 76 bpm Height: 5'11" Respiratory Rate: 20 bpm Temperature: 36 .7 (C) / 98.0 (F) Weight: 199 lbs 11/09/2015 Blood Pressure 1: 124/78 Code: 8480-6 BMI: 27.2 Code: 32045-8 Heart Rate 1: 76 bpm Height: 5'11" Respiratory Rate: 20 bpm Temperature: 36 .7 (C) / 98.0 (F) Weight: 195 lbs 08/15/2015 Blood Pressure 1: 124/78 Code: 8480-6 Heart Rate 1: 82 bpm Respiratory Rate: 20 bpm SpO2: 97% Temperature: 35.9 (C) / 96.6 (F) We ight: 198 lbs 06/07/2015 Blood Pressure 1: 128/70 Code: 8480-6 BMI: 28.3 Code: 92249-5 Heart Rate 1: 76 bpm Height: 5'11" Respiratory Rate: 20 bpm Temperature: 36 .9 (C) / 98.4 (F) Weight: 203 lbs Functional Status No Functional Status data Reason For Visit Reason For Visit Effective Dates Notes sore throat 05/09/2019 sinus congestion 03/07/2019 sore throat 08/02/2018 sore throat 06/21/2018 sores 11/30/2017 cough 08/04/2016 cough 03/28/2016 follow up 02/04/2016 chest pain/pressure 01/14/2016 abdominal pain 11/09/2015 skin lesion 08/15/2015 ~generic 06/07/2015 New Patient Encounters Encounter Performer Location Codes Date ([id number]) OFFICE/OUTPATIENT VISIT EST Diagnosis: Acute tonsillitis, unspecified[ICD10: J03.90] [facility] CPT-4: 49381 05/09/2019 ([id number]) OFFICE/OUTPATIENT VISIT EST Diagnosis: Sinusitis[ICD10: J32.9] Diagnosis: Acute suppurative otitis media of right ear[ICD10: H66.001] [facility] CPT-4: 50883 03/07/2019 ([id number]) OFFICE/OUTPATIENT VISIT EST Diagnosis: Acute pharyngitis, unspecified[ICD10: J02.9] Diagnosis: Acute tonsillitis, unspecified[ICD10: J03.90] Ross [facility] CPT-4: 96764 08/02/2018 ([id number]) OFFICE/OUTPATIENT VISIT EST Diagnosis: Acute recurrent maxillary sinusitis[ICD10: J01.01] Diagnosis: Acute pharyngitis, unspecified[ICD10: J02.9] Mary Elder [facility] CPT-4: 28111 06/21/2018 ([id number]) OFFICE/OUTPATIENT VISIT EST Diagnosis: Cutaneous abscess of abdominal wall[ICD10: L02.211] [facility] CPT-4: 23536 11/30/2017 ([id number]) OFFICE/OUTPATIENT VISIT EST Diagnosis: Acute upper respiratory infection, unspecified[ICD10: J06.9] Diagnosis: Otitis media, unspecified, left ear[ICD10: H66.92] [facility] 76699 08/04/2016 OFFICE/OUTPATIENT VISIT EST Diagnosis: Acute sinusitis, unspecified[ICD10: J01.90] Dacia Champion [facility] CPT-4: 55413 03/28/2016 OFFICE/OUTPATIENT VISIT EST Diagnosis: Gastro-esophageal reflux disease without esophagitis[ICD10: K21.9] [facility] CPT-4: 27873 02/04/2016 ([id number]) OFFICE/OUTPATIENT VISIT EST Diagnosis: Chest pain, unspecified[ICD10: R07.9] Diagnosis: Gastro-esophageal reflux disease without esophagitis[ICD10: K21.9] Diagnosis: COUGH[ICD10: R05] Ross MELGAR [facility] CPT-4: 15106 01/14/2016 OFFICE/OUTPATIENT VISIT EST Diagnosis: Epigastric pain[ICD10: R10.13] Diagnosis: Diarrhea, unspecified[ICD10: R19.7] Diagnosis: Other specified abnormal findings of blood chemistry[ICD10: R79.89] Dacia ZhangSegundo [facility] CPT-4: 49044 11/09/2015 ([id number]) OFFICE/OUTPATIENT VISIT EST Diagnosis: Cutaneous abscess, unspecified[ICD10: L02.91] Tammy Martinez [facility] CPT-4: 33634 08/15/2015 OFFICE/OUTPATIENT VISIT NEW Diagnosis: Psoriasis, unspecified[ICD10: L40.9] Diagnosis: Gastro-esophageal reflux disease without esophagitis[ICD10: K21.9] Diagnosis: Headache[ICD10: R51] Diagnosis: Cervicalgia[ICD10: M54.2] Ross Melgar [facility] CPT-4: 94337 06/07/2015 Plan of Care Planned Activity Notes Codes Status Date Visit Diagnosis Plan: Acute tonsillitis, unspecified D iscussion: zithromax prescribed to patient. instructed to rtc next week if he continues to have white exudate on tonsils and will proceed with culture. call office with any new or worsening symptoms. ibuprofen prn and push fluids. ICD-9 : 463 ICD-10 : J03.90 05/09/2019 Visit Diagnosis Plan: Sinusitis Discussion: augmentin prescribed to cover for sinus infection and ear infection. push fluids and instructed to use tylenol/ibuprofen prn pain. call or rtc with new or worsening symptoms. ICD-9 : 473.9 ICD-10 : J32.9 03/07/2019 Appointment: Justa Stevenson [address] [place], [place] [address] ACUTE ILLNESS 03/07/2019 Visit Plan: Supportive care. [...] Notes: Supportive care. Rest, Fluids... 08/02/2018 Appointment: Ross Fink WPtel: [address] [place] [address] ACUTE ILLNESS 08/02/2018 Visit Diagnosis Plan: Acute recurrent maxillary sinusi tis Discussion: Strep A- negative. Treating for sinusitis. Augmentin- take as directed. Sinus rinses encouraged. Salt water gargles. Fluids, rest, Tylenol or Motrin for pain and fever. Make annual wellness visit when checking out. Patient states understanding. ICD-9 : 461.0 ICD-10 : J01.01 06/21/2018 Appointment: Mary Elder [address] [place] [address] ACUTE ILLNESS 06/21/2018 Visit Diagnosis Plan: Cutaneous abscess of abdominal w all Discussion: Some bloody discharge expressed but no pus--his got old blood and pus out last night Warm compresses and clindamycin and notify if worsens or persists ICD-9 : 682.2 ICD-10 : L02.211 11/30/2017 Appointment: Ross Fink WPtel: [address] [place] [address] ACUTE ILLNESS 11/30/2017 Patient Education: Patient Medication Summary Completed 11/30/2017 Visit Diagnosis Plan: Acute upper respiratory infectio n, unspecified Discussion: Continue OTC meds and home remedies Rxs as above Notifiy prescriber of humira of treatment plan Rest, fluids, vicks, humidifier, etc Follow up PRN ICD-9 : 465.9 ICD-10 : J06.9 08/04/2016 Appointment: Tammy Martinez [address] [place] [address] ACUTE ILLNESS 08/04/2016 Patient Education: Patient Medication Summary Completed 08/04/2016 Visit Plan: ERx Augmentin and Medrol Dos pack Has Mucinex D at home Nasal saline, humidified air, Tylenol/ibuprofen prn Discussed s/s of worsening, go to UC/QC over weekend if needed 03/28/2016 Appointment: Dacia Champion WPtel: [address] [place] [address] ACUTE ILLNESS 03/28/2016 Patient Education: Patient Medication Summary Completed 03/28/2016 Visit Plan: Finish omeprazole at 40mg po BID for full month then decrease to 40mg daily for 1month then if no return of symptoms will decrease to 20mg daily for 1month then fwup 02/04/2016 Appointment: Ross Fink WPtel: [address] [place] [address] 01/30 confirmed`sl FOLLOW UP 02/04/2016 Patient Education: Patient Medication Summary Completed 02/04/2016 [facility] - Odd Torsten Delarosa Completed 02/04/2016 Visit Plan: No caffeine, no nicotine, no alcohol, no mints, no late meals, elevate HOB 30 degrees Omeprazole 40mg po BID Check CXR and EKG 01/14/2016 Appointment: Ross Fink WPtel: [address] [place] [address] ACUTE ILLNESS 01/14/2016 Patient Education: Patient Medication Summary Completed 01/14/2016 Care Plan: CHEST X-RAY 2VW FRONTAL&LATL LOINC : 74504-5 Pending 01/14/2016 Appointment: Ross Fink WPtel: [address] [place] [address] 11/[address] sterling [place] visit~sl RESCHEDULED 0 11/21/2015 Care Plan: ECHO EXAM OF ABDOMEN LOINC : 77390-3 Pending 11/10/2015 Visit Plan: Declines medication for diar beverley Declines stool studies CMP, CBC, TSH, Lipids (history of hyperlipidemia) GB U/S RTC/ER for worsening Discussed correlation with high fat foods, avoid. 11/09/2015 Appointment: Dacia Champion WPtel: [address] [facility] ACUTE ILLNESS 11/09/2015 Patient Education: Patient Medication Summary Completed 11/09/2015 Appointment: Tammy Martinez [address] [facility] Called at 9:20am.Patients rash went away over night. feeling better.-sp ACUTE ILLNESS 10/31/2015 Appointment: Tammy Martinez [address] [facility] US called back within minutes of scheduling to notify he could not make the appointment time. Per Dr Fink, this is a forgiven since he called back immediately to cancel the appointment.~lb RESCHEDULED 10/30/2015 Visit Plan: Rxs as above until culture r eceived Reviewed wound care Will need follow up if not improving as expected 08/15/2015 Appointment: Tammy Martinez [address] [place], [place] [id number] ACUTE ILLNESS 08/15/2015 Patient Education: Patient Medication Summary Completed 08/15/2015 Visit Plan: Omeprazole 40mg q HS for 1mo nth then call on how heartburn is doing Check lipids with next blood draw for humira Daily neck stretches and topical biofreeze to see if helps neck and HAS Discussed with pitting in nails may have psoriatic arthritis component as well 06/07/2015 [facility] [address] [facility] 06/05-SP 06/06 Confirmed~sl ACUTE ILLNESS 06/06 Patient [...]
--- OUTSIDE RECORDS SUMMARY | 2019-10-13 06:55 | XMS REPORT | CCD ---
Author Author Michael Fink D.O. Organization [facility]UREEN FINK DO [facility] Address [address] [place] [address] Phone Care Team Providers Care Electrician Station Assistant Name Role Phone Maureen Fink D.O., PP Unavailable CCM Unavailable Summary Purpose Interface Exchange Insurance Providers Payer name Policy type / Coverage type Covered libertarian ID Effective Begin Date Effective End Date [facility] Commercial Insurance [id number] Unkno wn Family history Father Diagnosis Age At Onset Suicide attempt Unknown Grandfather Diagnosis Age At Onset Myocardial infarction Unknown sepsis Unknown Social History Social History Element Codes Description Effective Dates Marital status Unknown 06/07/2015 Employment Unknown Currently employed [employer] 06/07/[address]: 0691366 Former smoker 06/07/[address]: 739732 Currently drinks alcohol 06/06 Has the patient [...] Fill Instructions Zithromax 500 mg tablet RxNorm: 768930 1 Tablet(s) Oral QD 05/09/19 20 05/14/2019 Inactive Medrol (Anders) 4 mg tablets in a dose pack RxNorm: 746523 Tablet(s) Oral take as directed 03/14/2019 03/14/2019 Inactive Medrol (Anders) 4 mg tablets in a dose pack RxNorm: 508291 Tablet(s) Oral take as directed 03/14/2019 03/13/2019 Inactive Augmentin 875 mg-125 mg tablet RxNorm: 487587 1 Tablet(s) Oral two times a day 03/07/2019 03/17/2019 Inactive Zithromax 500 mg tablet RxNorm: 106930 1 Tablet(s) PO QD 08/02/2018 0 08/08/2018 Inactive omeprazole 40 mg capsule,delayed release RxNorm: 226786 1 Capsu le(s) PO QD 06/23/2018 03/06/2019 Inactive omeprazole 40 mg capsule,delayed release RxNorm: 514303 1 Capsu le(s) PO QD 06/22/2018 06/22/2018 Inactive Augmentin 875 mg-125 mg tablet RxNorm: 224363 1 Tablet(s) PO BID 06/30/2018 Inactive clindamycin HCl 300 mg capsule RxNorm: 874514 2 Capsule(s) PO TID 0 11/30/2017 12/09/2017 Inactive azithromycin 250 mg tablet RxNorm: 477976 2 Tablet(s) P O on day one then 1 tab on days 2-5 08/04/2016 08/03/2016 Inactive prednisone 20 mg tablet RxNorm: 459819 1 Tablet(s) PO QD 08/04/2016 0 08/08/2016 Inactive Augmentin 875 mg-125 mg tablet RxNorm: 135941 1 Tablet(s) PO BID 04/06/2016 Inactive Medrol (Anders) 4 mg tablets in a dose pack RxNorm: 877357 as directed Tablet(s) PO QD 03/28/2016 04/01/2016 Inactive omeprazole 40 mg capsule,delayed release RxNorm: 687511 1 Capsu le(s) PO QD 02/04/2016 08/03/2016 Inactive omeprazole 40 mg capsule,delayed release RxNorm: 148879 1 Capsu le(s) PO BID 01/14/2016 02/03/2016 Inactive clindamycin 300 mg capsule RxNorm: 679640 1 Capsule(s) PO QID 08/1408/24/2015 Inactive Bactroban 2 % topical ointment RxNorm: 141411 Apply top ically to affected area twice daily for 10 days 08/15/2015 11/08/2015 Inactive omeprazole 40 mg capsule,delayed release RxNorm: 116058 1 Capsu le(s) PO QHS 06/07/2015 08/14/2015 Inactive Humira 40 mg/0.8 mL subcutaneous syringe kit RxNorm: 213182 Milliliter(s) SQ every 2 weeks (Dr Elliott) No Start Date Active omeprazole 40 mg capsule,delayed release RxNorm: 184690 1 Capsu le(s) PO QD No Start Date 01/13/2016 Inactive Medication Administered No Medication Administered data Immunizations No Immunization data Results Observation Observation Code Item Item Code Result Date S ervice Location IRON 28717 Iron 136 ug/dL 11/15/2015 Unknown FERRITIN 65568 FERRITIN 269 ng/mL 11/15/2015 Unknown COMPREHENSIVE METABOLIC 65992 AST 19 U/L 2015 Unknown COMPREHENSIVE METABOLIC 13983 ALT 26 U/L 2015 Unknown COMPREHENSIVE METABOLIC 29645 BUN 12 mg/dL 2015 Unknown COMPREHENSIVE METABOLIC 75680 ALBUMIN 4.3 g/dL 2015 Unknown COMPREHENSIVE METABOLIC 44576 CHLORIDE 103 mmol/L 11/08 Unknown COMPREHENSIVE METABOLIC 72963 Bili Total 0.8 mg/dL 11/08 Unknown COMPREHENSIVE METABOLIC 43375 ALK PHOS 56 U/L 2015 Unknown COMPREHENSIVE METABOLIC 60167 SODIUM 135 mmol/L 11/08 Unknown COMPREHENSIVE METABOLIC 23630 CREATININE 1.08 mg/dL 08/2015 Unknown COMPREHENSIVE METABOLIC 92294 CALCIUM 9.6 mg/dL 2015 Unknown COMPREHENSIVE METABOLIC 35676 POTASSIUM 4.2 mmol/L 11/08 Unknown COMPREHENSIVE METABOLIC 09539 Total Protein 7.4 g/dL Unknown COMPREHENSIVE METABOLIC 39585 Glucose 82 mg/dL 2015 Unknown COMPREHENSIVE METABOLIC 32550 Bicarbonate 23 mmol/L 08/2015 Unknown COMPREHENSIVE METABOLIC 66950 AGAP 9 mmol/L 2015 Unknown [facility] 37833 Cholesterol 176 mg/dL 11/09/2015 Unkno wn LIP[facility] GROUP 54129 Triglyceride 81 mg/dL 11/09/2015 Unkn own [facility] GROUP 89550 HDL CHOLESTEROL 36 mg/dL 11/09/2015 U nknown LIP[facility] GROUP 25672 Chol/HDL Ratio 4.89 ratio 11/09/2015 U nknown LIPID GROUP 91047 NON-HDL Chol 140 mg/dL 11/09/2015 Unkn own LIP[facility] GROUP 64914 LDL Cholesterol 124 mg/dL 11/09/2015 U nknown GFR CALC 4410156 GFR Non Afr Amr >60 mL/min 11/09/2015 Un known GFR CALC [id number] GFR Afr Amr >60 mL/min 11/09/2015 Unknow n FREE T4 10278 T4 Free 1.58 ng/dL 11/09/2015 Unknown THYROID STIMULATING HORMONE 91972 TSH 1.726 uIU/mL 11/09/2015 Unknown COMPLETE BLOOD COUNT 9563801 WBC 6.2 10e9/L 11/09/19 16 Unknown COMPLETE BLOOD COUNT 1047635 RBC 5.59 10e12/L 2015 Unknown COMPLETE BLOOD COUNT [id number] HEMOGLOBIN 18.1 g/dL 11/09/19 16 Unknown COMPLETE BLOOD COUNT [id number] HEMATOCRIT 50.1 % 11/09/19 16 Unknown COMPLETE BLOOD COUNT 6443870 MCV 89.6 fL 6 Unknown COMPLETE BLOOD COUNT 2032565 MCH 32.4 pg 6 Unknown COMPLETE BLOOD COUNT 5203334 MCHC 36.1 g/dL 6 Unknown COMPLETE BLOOD COUNT 2377722 PLATELET COUNT 269 10e9/L 08/2015 Unknown COMPLETE BLOOD COUNT [id number] Mean Plt Volume 10.8 fL 08/2015 Unknown COMPLETE BLOOD COUNT 7941449 Neut Auto 47.0 % 6 Unknown COMPLETE BLOOD COUNT 7913934 Lymph Auto 33.2 % 11/09/19 16 Unknown COMPLETE BLOOD COUNT 6545976 [place] Auto 16.5 % 6 Unknown COMPLETE BLOOD COUNT 2870405 Eos Auto 2.8 % 6 Unknown COMPLETE BLOOD COUNT 9486291 RDW 13.2 % 6 Unknown COMPLETE BLOOD COUNT 9742433 Baso Auto 0.5 % 6 Unknown COMPLETE BLOOD COUNT 9124054 Neutrophil Abs 2.91 10e9/L Unknown COMPLETE BLOOD COUNT 9837781 Lymphocyte Abs 2.06 10e9/L Unknown COMPLETE BLOOD COUNT 9851171 Monocyte Abs 1.02 10e9/L 0808/2015 Unknown COMPLETE BLOOD COUNT [id number] Eosinophil Abs 0.17 10e9/L Unknown COMPLETE BLOOD COUNT [id number] RDW-SD 42.9 fL 6 Unknown COMPLETE BLOOD COUNT [id number] Basophil Abs 0.03 10e9/L 08/0 08/2015 Unknown Procedures Procedure Codes Date STREP A ASSAY W/OPTIC CPT-4: 02878 08/02/2018 STREP A ASSAY W/OPTIC CPT-4: 48062 06/21/2018 ASSAY OF IRON CPT-4: 17313 11/09/2015 ASSAY OF FERRITIN CPT-4: 99224 11/09/2015 DRAINAGE OF SKIN ABSCESS CPT-4: 06977 08/15/2015 AEROBIC WOUND CULTURE & STN CPT-4: 37708 08/15/2015 Vital Signs Date Vital 05/09/2019 Blood [...] 1: 126/82 Code: 8480-6 BMI: 29.1 Code: 59368-9 Heart Rate 1: 72 bpm Height: 5'10" Respiratory Rate: 20 bpm SpO2: 97% Tempera ture: 36.8 (C) / 98.3 (F) Weight: 203 lbs 06/21/2018 Blood Pressure 1: 128/90 Code: 8480-6 Heart Rate 1: 80 bpm Respiratory Rate: 18 bpm SpO2: 98% Temperature: 36.7 (C) / 98.1 (F) We ight: 207 lbs 11/30/2017 Blood Pressure 1: 122/78 Code: 8480-6 BMI: 27.7 Code: 60512-0 Heart Rate 1: 76 bpm Height: 5'10" SpO2: 98% Temperature: 36.4 (C) / 97.5 (F) Weight: 193 lbs 08/04/2016 Blood Pressure 1: 122/78 Code: 8480-6 BMI: 28.1 Code: 99316-7 Heart Rate 1: 72 bpm Height: 5'10" Respiratory Rate: 22 bpm SpO2: 97% Tempera ture: 36.3 (C) / 97.3 (F) Weight: 196 lbs 03/28/2016 Blood Pressure 1: 136/74 Code: 8480-6 Heart Rate 1: 100 bpm Respiratory Rate: 24 bpm SpO2: 97% Temperature: 36.4 (C) / 97.6 (F) We ight: 198 lbs 02/04/2016 Blood Pressure 1: 112/70 Code: 8480-6 BMI: 27.6 Code: 72277-0 Heart Rate 1: 72 bpm Height: 5'11" Respiratory Rate: 20 bpm Temperature: 36 .6 (C) / 97.8 (F) Weight: 198 lbs 01/14/2016 Blood Pressure 1: 124/78 Code: 8480-6 BMI: 27.8 Code: 08212-4 Heart Rate 1: 76 bpm Height: 5'11" Respiratory Rate: 20 bpm Temperature: 36 .7 (C) / 98.0 (F) Weight: 199 lbs 11/09/2015 Blood Pressure 1: 124/78 Code: 8480-6 BMI: 27.2 Code: 77249-8 Heart Rate 1: 76 bpm Height: 5'11" Respiratory Rate: 20 bpm Temperature: 36 .7 (C) / 98.0 (F) Weight: 195 lbs 08/15/2015 Blood Pressure 1: 124/78 Code: 8480-6 Heart Rate 1: 82 bpm Respiratory Rate: 20 bpm SpO2: 97% Temperature: 35.9 (C) / 96.6 (F) We ight: 198 lbs 06/07/2015 Blood Pressure 1: 128/70 Code: 8480-6 BMI: 28.3 Code: 65465-6 Heart Rate 1: 76 bpm Height: 5'11" [...] Patient Encounters Encounter Performer Location Codes Date ([id number]) OFFICE/OUTPATIENT VISIT EST Diagnosis: Recurrent tonsillitis[ICD10: J03.91] Maureen Aleks FINK [facility] CPT-4: 01237 08/04/2019 ([id number]) OFFICE/OUTPATIENT VISIT EST Diagnosis: Acute tonsillitis, unspecified[ICD10: J03.90] Justa FINK DO [facility] CPT-4: 52090 05/09/2019 ([id number]) OFFICE/OUTPATIENT VISIT EST Diagnosis: Sinusitis[ICD10: J32.9] Diagnosis: Acute suppurative otitis media of right ear[ICD10: H66.001] Justa FINK [facility] CPT-4: 54629 03/07/2019 ([id number]) OFFICE/OUTPATIENT VISIT EST Diagnosis: Acute pharyngitis, unspecified[ICD10: J02.9] Diagnosis: Acute tonsillitis, unspecified[ICD10: J03.90] Maureen Aleks CRYSTALLINE Hossein FINK [facility] CPT-4: 09499 08/02/2018 ([id number]) OFFICE/OUTPATIENT VISIT EST Diagnosis: Acute recurrent maxillary sinusitis[ICD10: J01.01] Diagnosis: Acute pharyngitis, unspecified[ICD10: J02.9] Maryjennyfer CRYSTALLINE Hossein FINK [facility] CPT-4: 75387 06/21/2018 ([id number]) OFFICE/OUTPATIENT VISIT EST Diagnosis: Cutaneous abscess of abdominal wall[ICD10: L02.211] Maureen Coxadis MAUREEN GregTarah ALEKS [facility] CPT-4: 71058 11/30/2017 ([id number]) OFFICE/OUTPATIENT VISIT EST Diagnosis: Acute upper respiratory infection, unspecified[ICD10: J06.9] Diagnosis: Otitis media, unspecified, left ear[ICD10: H66.92] Tammy BRADLEYQUELINE GregTarah ALEKS [facility] CPT-4: 72119 08/04/2016 OFFICE/OUTPATIENT VISIT EST Diagnosis: Acute sinusitis, unspecified[ICD10: J01.90] Dacia BRADLEYQUELINE GregTarah ALEKS [facility] CPT-4: 00348 03/28/2016 OFFICE/OUTPATIENT VISIT EST Diagnosis: Gastro-esophageal reflux disease without esophagitis[ICD10: K21.9] Maureen HAWKINS Tarah [facility] CPT-4: 02853 02/04/2016 ([id number]) OFFICE/OUTPATIENT VISIT EST Diagnosis: Chest pain, unspecified[ICD10: R07.9] Diagnosis: Gastro-esophageal reflux disease without esophagitis[ICD10: K21.9] Diagnosis: COUGH[ICD10: R05] Maureen Cox MAUREEN Taarh [facility] CPT-4: 79572 01/14/2016 OFFICE/OUTPATIENT VISIT EST Diagnosis: Epigastric pain[ICD10: R10.13] Diagnosis: Diarrhea, unspecified[ICD10: R19.7] Diagnosis: Other specified abnormal findings of blood chemistry[ICD10: R79.89] Daciamala Champion [facility] CPT-4: 34066 11/09/2015 ([id number]) OFFICE/OUTPATIENT VISIT EST Diagnosis: Cutaneous abscess, unspecified[ICD10: L02.91] [facility]: 59791 08/15/2015 OFFICE/OUTPATIENT VISIT NEW Diagnosis: Psoriasis, unspecified[ICD10: L40.9] Diagnosis: Gastro-esophageal reflux disease without esophagitis[ICD10: K21.9] Diagnosis: Headache[ICD10: R51] Diagnosis: Cervicalgia[ICD10: M54.2] [facility] MAUREEN Catalan [facility] CPT-4: 68064 06/07/2015 Plan of Care Planned Activity Notes Codes Status Date Visit Diagnosis Plan: Recurrent tonsillitis Discussion : ne video visit done Will start with throat [...] : J03.90 05/09/2019 Appointment: Justa Stevenson [address] [facility] ACUTE ILLNESS 05/09/2019 Visit Diagnosis Plan: Sinusitis Discussion: augmentin prescribed to cover for sinus infection and ear infection. push fluids and instructed to use tylenol/ibuprofen prn pain. call or rtc with new or worsening symptoms. ICD-9 : 473.9 ICD-10 : J32.9 03/07/2019 Appointment: Justa Stevenson [address] ACUTE ILLNESS 03/07/2019 Visit Plan: Supportive [...] care. Rest, Fluids... 08/02/2018 Appointment: Maureen Finktel: [facility] [address] ACUTE ILLNESS 08/02/2018 Visit Diagnosis Plan: Acute recurrent maxillary sinusi tis Discussion: Strep A- negative. Treating for sinusitis. Augmentin- take as directed. Sinus rinses encouraged. Salt water gargles. Fluids, rest, Tylenol or Motrin for pain and fever. Make annual wellness visit when checking out. Patient states understanding. ICD-9 : 461.0 ICD-10 : J01.01 06/21/2018 Appointment: Mary Elder [address] ACUTE ILLNESS 06/21/2018 Visit Diagnosis Plan: Cutaneous abscess of abdominal w all Discussion: Some bloody discharge expressed but no pus--his got old blood and pus out last night Warm compresses and clindamycin and notify if worsens or persists ICD-9 : 682.2 ICD-10 : L02.211 11/30/2017 Appointment: Maureen Finkl: [address] [place], [place] [phone] ACUTE ILLNESS 11/30/2017 Patient Education: Patient Medication Summary Completed 11/30/2017 Visit Diagnosis Plan: Acute upper respiratory infectio n, unspecified Discussion: Continue OTC meds and home remedies Rxs as above Notifiy prescriber of humira of treatment plan Rest, fluids, vicks, humidifier, etc Follow up PRN ICD-9 : 465.9 ICD-10 : J06.9 08/04/2016 Appointment: Tammy Martinez [address] [place] [address] ACUTE ILLNESS 08/04/2016 Patient Education: Patient Medication Summary Completed 08/04/2016 Visit Plan: ERx Augmentin and Medrol Dos pack Has Mucinex D at home Nasal saline, humidified air, Tylenol/ibuprofen prn Discussed s/s of worsening, go to UC/ over weekend if needed 03/28/2016 Appointment: Dacia Champion WPtel: [address] [place] [address] ACUTE ILLNESS 03/28/2016 Patient Education: Patient Medication Summary Completed 03/28/2016 Visit Plan: Finish omeprazole at 40mg po BID for full month then decrease to 40mg daily for 1month then if no return of symptoms will decrease to 20mg daily for 1month then fwup 02/04/2016 Appointment: Maureen Fink WPtel: [address] [place], [place] [phone] 01/30 confirmed`sl FOLLOW UP 02/04/2016 Patient Education: Patient Medication Summary Completed 02/04/2016 Patient Education: [facility] - Prilosec - 1st Mo Free - Odd Pa tientIDs Completed 02/04/2016 Visit Plan: No caffeine, no nicotine, no alcohol, no mints, no late meals, elevate HOB 30 degrees Omeprazole 40mg po BID Check CXR and EKG 01/14/2016 Appointment: Maureen Fink WPtel: [address] [place], [place] [phone] ACUTE ILLNESS 01/14/2016 Patient Education: Patient Medication Summary Completed 01/14/2016 Care Plan: CHEST X-RAY 2VW FRONTAL&LATL LOINC : 99858-6 Pending 01/14/2016 Appointment: Maureen Fink WPtel: [address] [place], [place] [phone] 11/[address] sterling [place] visit~sl RESCHEDULED 0 11/21/2015 Care Plan: ECHO EXAM OF ABDOMEN LOINC : 76505-4 Pending 11/10/2015 Visit Plan: Declines medication for bipinr beverley Declines stool studies CMP, CBC, TSH, Lipids (history of hyperlipidemia) GB U/S RTC/ER for worsening Discussed correlation with high fat foods, avoid. 11/09/2015 Appointment: Dacia Champion WPtel: [address] [place] [address] ACUTE ILLNESS 11/09/2015 Patient Education: Patient Medication Summary Completed 11/09/2015 Appointment: Tammy Martinez [address] [place], [place] [phone] [place] Called at 9:20am.Patients rash went away over night. feeling better.-sp ACUTE ILLNESS 10/31/2015 Appointment: Tammy Martinez [address] [place], [place] [phone] [place] called back within minutes of scheduling to notify he could not make the appointment time. Per Dr Fink, this is a forgiven since he called back immediately to cancel the appointment.~lb RESCHEDULED 10/30/2015 Visit Plan: Rxs as above until culture r eceived Reviewed wound care Will need follow up if not improving as expected 08/15/2015 Appointment: Tammy Martinez [address] [place], [place] [phone] ACUTE ILLNESS 08/15/2015 Patient Education: Patient Medication [...] as well 06/07/2015 Appointment: Maureen Fink WPtel: [facility] 06/05-SP 06/06 Confirmed~sl ACUTE ILLNESS 06/06 Patient [...]
--- OUTSIDE RECORDS SUMMARY | 2019-10-13 06:55 | XMS REPORT | CCD ---
Author Author Michael Fink D.O. Organization MAUREEN FINK DO [facility] Address [address] [place] [address] Phone Care Team Providers Care Dye House Helper Name Role Phone Maureen Fink D.O., PP Unavailable CCM Unavailable Summary Purpose Interface Exchange Insurance Providers Payer name Policy type / Coverage type Covered libertarian ID Effective Begin Date Effective End Date [facility] Commercial Insurance [id number] Unkno wn Family history Father Diagnosis Age At Onset Suicide attempt Unknown Grandfather Diagnosis Age At Onset Myocardial infarction Unknown sepsis Unknown Social History Social History Element Codes Description Effective Dates Marital status Unknown 06/07/2015 Employment Unknown Currently employed [employer] 06/07/[address]: 1929292 Former smoker 06/07/[address]: 261319 Currently drinks alcohol 06/06 Has the patient [...] Fill Instructions Zithromax 500 mg tablet RxNorm: 056307 1 Tablet(s) Oral QD 05/09/19 20 05/14/2019 Inactive Medrol (Anders) 4 mg tablets in a dose pack RxNorm: 894926 Tablet(s) Oral take as directed 03/14/2019 03/14/2019 Inactive Medrol (Anders) 4 mg tablets in a dose pack RxNorm: 641423 Tablet(s) Oral take as directed 03/14/2019 03/13/2019 Inactive Augmentin 875 mg-125 mg tablet RxNorm: 902835 1 Tablet(s) Oral two times a day 03/07/2019 03/17/2019 Inactive Zithromax 500 mg tablet RxNorm: 085052 1 Tablet(s) PO QD 08/02/2018 0 08/08/2018 Inactive omeprazole 40 mg capsule,delayed release RxNorm: 413316 1 Capsu le(s) PO QD 06/23/2018 03/06/2019 Inactive omeprazole 40 mg capsule,delayed release RxNorm: 297761 1 Capsu le(s) PO QD 06/22/2018 06/22/2018 Inactive Augmentin 875 mg-125 mg tablet RxNorm: 052183 1 Tablet(s) PO BID 06/30/2018 Inactive clindamycin HCl 300 mg capsule RxNorm: 711703 2 Capsule(s) PO TID 0 11/30/2017 12/09/2017 Inactive azithromycin 250 mg tablet RxNorm: 128315 2 Tablet(s) P O on day one then 1 tab on days 2-5 08/04/2016 08/03/2016 Inactive prednisone 20 mg tablet RxNorm: 877379 1 Tablet(s) PO QD 08/04/2016 0 08/08/2016 Inactive Augmentin 875 mg-125 mg tablet RxNorm: 388257 1 Tablet(s) PO BID 04/06/2016 Inactive Medrol (Anders) 4 mg tablets in a dose pack RxNorm: 786073 as directed Tablet(s) PO QD 03/28/2016 04/01/2016 Inactive omeprazole 40 mg capsule,delayed release RxNorm: 694048 1 Capsu le(s) PO QD 02/04/2016 08/03/2016 Inactive omeprazole 40 mg capsule,delayed release RxNorm: 624831 1 Capsu le(s) PO BID 01/14/2016 02/03/2016 Inactive clindamycin 300 mg capsule RxNorm: 386758 1 Capsule(s) PO QID 08/1408/24/2015 Inactive Bactroban 2 % topical ointment RxNorm: 456873 Apply top ically to affected area twice daily for 10 days 08/15/2015 11/08/2015 Inactive omeprazole 40 mg capsule,delayed release RxNorm: 382613 1 Capsu le(s) PO QHS 06/07/2015 08/14/2015 Inactive Humira 40 mg/0.8 mL subcutaneous syringe kit RxNorm: 390886 Milliliter(s) SQ every 2 weeks (Dr Elliott) No Start Date Active omeprazole 40 mg capsule,delayed release RxNorm: 788846 1 Capsu le(s) PO QD No Start Date 01/13/2016 Inactive Medication Administered No Medication Administered data Immunizations No Immunization data Results Observation Observation Code Item Item Code Result Date S ervice Location IRON 70173 Iron 136 ug/dL 11/15/2015 Unknown FERRITIN 58544 FERRITIN 269 ng/mL 11/15/2015 Unknown COMPREHENSIVE METABOLIC 35868 AST 19 U/L 2015 Unknown COMPREHENSIVE METABOLIC 01108 ALT 26 U/L 2015 Unknown COMPREHENSIVE METABOLIC 14051 BUN 12 mg/dL 2015 Unknown COMPREHENSIVE METABOLIC 19899 ALBUMIN 4.3 g/dL 2015 Unknown COMPREHENSIVE METABOLIC 73734 CHLORIDE 103 mmol/L 11/08 Unknown COMPREHENSIVE METABOLIC 14322 Bili Total 0.8 mg/dL 11/08 Unknown COMPREHENSIVE METABOLIC 39418 ALK PHOS 56 U/L 2015 Unknown COMPREHENSIVE METABOLIC 61933 SODIUM 135 mmol/L 11/08 Unknown COMPREHENSIVE METABOLIC 01301 CREATININE 1.08 mg/dL 08/2015 Unknown COMPREHENSIVE METABOLIC 82931 CALCIUM 9.6 mg/dL 2015 Unknown COMPREHENSIVE METABOLIC 74733 POTASSIUM 4.2 mmol/L 11/08 Unknown COMPREHENSIVE METABOLIC 46792 Total Protein 7.4 g/dL Unknown COMPREHENSIVE METABOLIC 91212 Glucose 82 mg/dL 2015 Unknown COMPREHENSIVE METABOLIC 62589 Bicarbonate 23 mmol/L 08/2015 Unknown COMPREHENSIVE METABOLIC 60930 AGAP 9 mmol/L 2015 Unknown [facility] 33048 Cholesterol 176 mg/dL 11/09/2015 Unkno wn L[facility] 39541 Triglyceride 81 mg/dL 11/09/2015 Unkn own [facility] 29750 HDL CHOLESTEROL 36 mg/dL 11/09/2015 U nknown L[facility] 43669 Chol/HDL Ratio 4.89 ratio 11/09/2015 U nknown LIPID GROUP 89131 NON-HDL Chol 140 mg/dL 11/09/2015 Unkn own LIP[facility] GROUP 35447 LDL Cholesterol 124 mg/dL 11/09/2015 U nknown GFR CALC 8054552 GFR Non Afr Amr >60 mL/min 11/09/2015 Un known GFR CALC 5489710 GFR Afr Amr >60 mL/min 11/09/2015 Unknow n FREE T4 58515 T4 Free 1.58 ng/dL 11/09/2015 Unknown THYROID STIMULATING HORMONE 60526 TSH 1.726 uIU/mL 11/09/2015 Unknown COMPLETE BLOOD COUNT [id number] WBC 6.2 10e9/L 11/09/19 16 Unknown COMPLETE BLOOD COUNT 1820011 RBC 5.59 10e12/L 2015 Unknown COMPLETE BLOOD COUNT 7998407 HEMOGLOBIN 18.1 g/dL 11/09/19 16 Unknown COMPLETE BLOOD COUNT 2873905 HEMATOCRIT 50.1 % 11/09/19 16 Unknown COMPLETE BLOOD COUNT [id number] MCV 89.6 fL 6 Unknown COMPLETE BLOOD COUNT 0490499 MCH 32.4 pg 6 Unknown COMPLETE BLOOD COUNT 7251647 MCHC 36.1 g/dL 6 Unknown COMPLETE BLOOD COUNT [id number] PLATELET COUNT 269 10e9/L 08/2015 Unknown COMPLETE BLOOD COUNT 8014725 Mean Plt Volume 10.8 fL 08/2015 Unknown COMPLETE BLOOD COUNT [id number] Neut Auto 47.0 % 6 Unknown COMPLETE BLOOD COUNT 8393421 Lymph Auto 33.2 % 11/09/19 16 Unknown COMPLETE BLOOD COUNT 8843501 [place] Auto 16.5 % 6 Unknown COMPLETE BLOOD COUNT 9732947 RDW 13.2 % 6 Unknown COMPLETE BLOOD COUNT 3741066 Eos Auto 2.8 % 6 Unknown COMPLETE BLOOD COUNT 6553040 Baso Auto 0.5 % 6 Unknown COMPLETE BLOOD COUNT 2953522 Neutrophil Abs 2.91 10e9/L Unknown COMPLETE BLOOD COUNT [id number] Lymphocyte Abs 2.06 10e9/L Unknown COMPLETE BLOOD COUNT 5394922 Monocyte Abs 1.02 10e9/L 0808/2015 Unknown COMPLETE BLOOD COUNT [id number] Eosinophil Abs 0.17 10e9/L Unknown COMPLETE BLOOD COUNT [id number] RDW-SD 42.9 fL 6 Unknown COMPLETE BLOOD COUNT [id number] Basophil Abs 0.03 10e9/L 08/0 08/2015 Unknown Procedures Procedure Codes Date STREP A ASSAY W/OPTIC CPT-4: 17700 08/02/2018 STREP A ASSAY W/OPTIC CPT-4: 78429 06/21/2018 ASSAY OF IRON CPT-4: 53359 11/09/2015 ASSAY OF FERRITIN CPT-4: 01138 11/09/2015 DRAINAGE OF SKIN ABSCESS CPT-4: 85642 08/15/2015 AEROBIC WOUND CULTURE & STN CPT-4: 10379 08/15/2015 Vital Signs Date Vital 05/09/2019 Blood [...] 1: 126/82 Code: 8480-6 BMI: 29.1 Code: 25119-4 Heart Rate 1: 72 bpm Height: 5'10" Respiratory Rate: 20 bpm SpO2: 97% Tempera ture: 36.8 (C) / 98.3 (F) Weight: 203 lbs 06/21/2018 Blood Pressure 1: 128/90 Code: 8480-6 Heart Rate 1: 80 bpm Respiratory Rate: 18 bpm SpO2: 98% Temperature: 36.7 (C) / 98.1 (F) We ight: 207 lbs 11/30/2017 Blood Pressure 1: 122/78 Code: 8480-6 BMI: 27.7 Code: 97908-1 Heart Rate 1: 76 bpm Height: 5'10" SpO2: 98% Temperature: 36.4 (C) / 97.5 (F) Weight: 193 lbs 08/04/2016 Blood Pressure 1: 122/78 Code: 8480-6 BMI: 28.1 Code: 12818-9 Heart Rate 1: 72 bpm Height: 5'10" Respiratory Rate: 22 bpm SpO2: 97% Tempera ture: 36.3 (C) / 97.3 (F) Weight: 196 lbs 03/28/2016 Blood Pressure 1: 136/74 Code: 8480-6 Heart Rate 1: 100 bpm Respiratory Rate: 24 bpm SpO2: 97% Temperature: 36.4 (C) / 97.6 (F) We ight: 198 lbs 02/04/2016 Blood Pressure 1: 112/70 Code: 8480-6 BMI: 27.6 Code: 35686-0 Heart Rate 1: 72 bpm Height: 5'11" Respiratory Rate: 20 bpm Temperature: 36 .6 (C) / 97.8 (F) Weight: 198 lbs 01/14/2016 Blood Pressure 1: 124/78 Code: 8480-6 BMI: 27.8 Code: 73638-2 Heart Rate 1: 76 bpm Height: 5'11" Respiratory Rate: 20 bpm Temperature: 36 .7 (C) / 98.0 (F) Weight: 199 lbs 11/09/2015 Blood Pressure 1: 124/78 Code: 8480-6 BMI: 27.2 Code: 81784-1 Heart Rate 1: 76 bpm Height: 5'11" Respiratory Rate: 20 bpm Temperature: 36 .7 (C) / 98.0 (F) Weight: 195 lbs 08/15/2015 Blood Pressure 1: 124/78 Code: 8480-6 Heart Rate 1: 82 bpm Respiratory Rate: 20 bpm SpO2: 97% Temperature: 35.9 (C) / 96.6 (F) We ight: 198 lbs 06/07/2015 Blood Pressure 1: 128/70 Code: 8480-6 BMI: 28.3 Code: 41947-9 Heart Rate 1: 76 bpm Height: 5'11" [...] Patient Encounters Encounter Performer Location Codes Date (57411) OFFICE/OUTPATIENT VISIT EST Diagnosis: Recurrent tonsillitis[ICD10: J03.91] Maureen Aleks FINK [facility] CPT-4: 86966 08/04/2019 ([id number]) OFFICE/OUTPATIENT VISIT EST Diagnosis: Acute tonsillitis, unspecified[ICD10: J03.90] Justa FINK DO [facility] CPT-4: 18411 05/09/2019 ([id number]) OFFICE/OUTPATIENT VISIT EST Diagnosis: Sinusitis[ICD10: J32.9] Diagnosis: Acute suppurative otitis media of right ear[ICD10: H66.001] Justa FINK [facility] CPT-4: 43949 03/07/2019 ([id number]) OFFICE/OUTPATIENT VISIT EST Diagnosis: Acute pharyngitis, unspecified[ICD10: J02.9] Diagnosis: Acute tonsillitis, unspecified[ICD10: J03.90] Maureen Aleks CRYSTALLINE Hossein FINK [facility] CPT-4: 44611 08/02/2018 ([id number]) OFFICE/OUTPATIENT VISIT EST Diagnosis: Acute recurrent maxillary sinusitis[ICD10: J01.01] Diagnosis: Acute pharyngitis, unspecified[ICD10: J02.9] Maryjennyfer CRYSTALLINE Hossein FINK [facility] CPT-4: 53241 06/21/2018 ([id number]) OFFICE/OUTPATIENT VISIT EST Diagnosis: Cutaneous abscess of abdominal wall[ICD10: L02.211] Maureen Coxadis MAUREEN GregTarah ALEKS [facility] CPT-4: 48046 11/30/2017 ([id number]) OFFICE/OUTPATIENT VISIT EST Diagnosis: Acute upper respiratory infection, unspecified[ICD10: J06.9] Diagnosis: Otitis media, unspecified, left ear[ICD10: H66.92] Tammy BRADLEYQUELINE GregTarah ALEKS [facility] CPT-4: 35857 08/04/2016 OFFICE/OUTPATIENT VISIT EST Diagnosis: Acute sinusitis, unspecified[ICD10: J01.90] Dacia BRADLEYQUELINE GregTarah ALEKS [facility] CPT-4: 60220 03/28/2016 OFFICE/OUTPATIENT VISIT EST Diagnosis: Gastro-esophageal reflux disease without esophagitis[ICD10: K21.9] Maureen HAWKINS Tarah [facility] CPT-4: 73569 02/04/2016 ([id number]) OFFICE/OUTPATIENT VISIT EST Diagnosis: Chest pain, unspecified[ICD10: R07.9] Diagnosis: Gastro-esophageal reflux disease without esophagitis[ICD10: K21.9] Diagnosis: COUGH[ICD10: R05] Maureen Cox MAUREEN Tarah [facility] CPT-4: 51361 01/14/2016 OFFICE/OUTPATIENT VISIT EST Diagnosis: Epigastric pain[ICD10: R10.13] Diagnosis: Diarrhea, unspecified[ICD10: R19.7] Diagnosis: Other specified abnormal findings of blood chemistry[ICD10: R79.89] Daciamala Champion [facility] CPT-4: 03092 11/09/2015 ([id number]) OFFICE/OUTPATIENT VISIT EST Diagnosis: Cutaneous abscess, unspecified[ICD10: L02.91] [facility]: 47702 08/15/2015 OFFICE/OUTPATIENT VISIT NEW Diagnosis: Psoriasis, unspecified[ICD10: L40.9] Diagnosis: Gastro-esophageal reflux disease without esophagitis[ICD10: K21.9] Diagnosis: Headache[ICD10: R51] Diagnosis: Cervicalgia[ICD10: M54.2] Maureen Ritchiebanner MAUREEN Catalan [facility] CPT-4: 89504 06/07/2015 Plan of Care Planned Activity Notes Codes Status Date Visit Diagnosis Plan: Recurrent tonsillitis Discussion : pr video visit done Will start with throat [...] : J03.90 05/09/2019 Appointment: Justa Stevenson [address] [id number] ACUTE ILLNESS 05/09/2019 Visit Diagnosis Plan: Sinusitis Discussion: augmentin prescribed to cover for sinus infection and ear infection. push fluids and instructed to use tylenol/ibuprofen prn pain. call or rtc with new or worsening symptoms. ICD-9 : 473.9 ICD-10 : J32.9 03/07/2019 Appointment: Justa Stevenson [address] ACUTE ILLNESS 03/07/2019 Visit Plan: Supportive [...] care. Rest, Fluids... 08/02/2018 Appointment: Maureen Finktel: [facility] [address] ACUTE ILLNESS 08/02/2018 Visit Diagnosis Plan: Acute recurrent maxillary sinusi tis Discussion: Strep A- negative. Treating for sinusitis. Augmentin- take as directed. Sinus rinses encouraged. Salt water gargles. Fluids, rest, Tylenol or Motrin for pain and fever. Make annual wellness visit when checking out. Patient states understanding. ICD-9 : 461.0 ICD-10 : J01.01 06/21/2018 Appointment: Mary Elder [address] ACUTE ILLNESS 06/21/2018 Visit Diagnosis Plan: Cutaneous abscess of abdominal w all Discussion: Some bloody discharge expressed but no pus--his got old blood and pus out last night Warm compresses and clindamycin and notify if worsens or persists ICD-9 : 682.2 ICD-10 : L02.211 11/30/2017 Appointment: Maureen Finkl: [address] [place], [place] [id number] ACUTE ILLNESS 11/30/2017 Patient Education: Patient Medication Summary Completed 11/30/2017 Visit Diagnosis Plan: Acute upper respiratory infectio n, unspecified Discussion: Continue OTC meds and home remedies Rxs as above Notifiy prescriber of humira of treatment plan Rest, fluids, vicks, humidifier, etc Follow up PRN ICD-9 : 465.9 ICD-10 : J06.9 08/04/2016 Appointment: Tammy Martinez [address] [place] [address] ACUTE ILLNESS 08/04/2016 Patient Education: Patient Medication Summary Completed 08/04/2016 Visit Plan: ERx Augmentin and Medrol Dos pack Has Mucinex D at home Nasal saline, humidified air, Tylenol/ibuprofen prn Discussed s/s of worsening, go to UC/ over weekend if needed 03/28/2016 Appointment: Dacia Champion WPtel: [address] [place] [address] ACUTE ILLNESS 03/28/2016 Patient Education: Patient Medication Summary Completed 03/28/2016 Visit Plan: Finish omeprazole at 40mg po BID for full month then decrease to 40mg daily for 1month then if no return of symptoms will decrease to 20mg daily for 1month then fwup 02/04/2016 Appointment: Maureen Fink WPtel: [address] [place], [place] [phone] 01/30 confirmed`sl FOLLOW UP 02/04/2016 Patient Education: Patient Medication Summary Completed 02/04/2016 Patient Education: [facility] - Prilosec - 1st Mo Free - Odd Pa tientIDs Completed 02/04/2016 Visit Plan: No caffeine, no nicotine, no alcohol, no mints, no late meals, elevate HOB 30 degrees Omeprazole 40mg po BID Check CXR and EKG 01/14/2016 Appointment: Maureen Fink WPtel: [address] [place], [place] [phone] ACUTE ILLNESS 01/14/2016 Patient Education: Patient Medication Summary Completed 01/14/2016 Care Plan: CHEST X-RAY 2VW FRONTAL&LATL LOINC : 56995-5 Pending 01/14/2016 Appointment: Maureen Fink WPtel: [address] [place], [place] [phone] 11/[address] sterling [place] visit~sl RESCHEDULED 0 11/21/2015 Care Plan: ECHO EXAM OF ABDOMEN LOINC : 74361-5 Pending 11/10/2015 Visit Plan: Declines medication for bipinr beverley Declines stool studies CMP, CBC, TSH, Lipids (history of hyperlipidemia) GB U/S RTC/ER for worsening Discussed correlation with high fat foods, avoid. 11/09/2015 Appointment: Dacia Champion WPtel: [address] [place] [address] ACUTE ILLNESS 11/09/2015 Patient Education: Patient Medication Summary Completed 11/09/2015 Appointment: Tammy Martinez [address] [place], [place] [phone] [place] Called at 9:20am.Patients rash went away over night. feeling better.-sp ACUTE ILLNESS 10/31/2015 Appointment: Tammy Martinez [address] [place], [place] [phone] [place] called back within minutes of scheduling to notify he could not make the appointment time. Per Dr Fink, this is a forgiven since he called back immediately to cancel the appointment.~lb RESCHEDULED 10/30/2015 Visit Plan: Rxs as above until culture r eceived Reviewed wound care Will need follow up if not improving as expected 08/15/2015 Appointment: Tammy Martinez [address] [place], [place] [phone] ACUTE ILLNESS 08/15/2015 Patient Education: Patient Medication [...] as well 06/07/2015 Appointment: Maureen Fink WPtel: [facility] 06/05-SP 06/06 Confirmed~sl ACUTE ILLNESS 06/06 [...]
--- OUTSIDE RECORDS SUMMARY | 2019-10-13 06:56 | XMS REPORT | CCD ---
Author Author Michael Fink D.O. Organization [facility] Address [address] [place] [address] Phone Care Team Providers Care Head Holder Name Role Phone Ross Fink D.O., PP Unavailable CCM Unavailable Summary Purpose Interface Exchange Insurance Providers Payer name Policy type / Coverage type Covered alliance party ID Effective Begin Date Effective End Date [facility] Commercial Insurance [id number] Unkno wn Family history Father Diagnosis Age At Onset Suicide attempt Unknown Grandfather Diagnosis Age At Onset Myocardial infarction Unknown sepsis Unknown Social History Social History Element Codes Description Effective Dates Marital status Unknown 06/07/2015 Employment Unknown Currently employed [employer] [facility] 06/07/[address]: 7634281 Former smoker 06/07/[address]: 546107 Currently drinks alcohol 06/06 Has the patient [...] Fill Instructions Zithromax 500 mg tablet RxNorm: 452246 1 Tablet(s) Oral QD 05/09/19 20 05/14/2019 Active Medrol (Anders) 4 mg tablets in a dose pack RxNorm: 673225 Tablet(s) Oral take as directed 03/14/2019 03/14/2019 Inactive Medrol (Anders) 4 mg tablets in a dose pack RxNorm: 179535 Tablet(s) Oral take as directed 03/14/2019 03/13/2019 Inactive Augmentin 875 mg-125 mg tablet RxNorm: 095466 1 Tablet(s) Oral two times a day 03/07/2019 03/17/2019 Inactive Zithromax 500 mg tablet RxNorm: 509036 1 Tablet(s) PO QD 08/02/2018 0 08/08/2018 Inactive omeprazole 40 mg capsule,delayed release RxNorm: 999983 1 Capsu le(s) PO QD 06/23/2018 03/06/2019 Inactive omeprazole 40 mg capsule,delayed release RxNorm: 248463 1 Capsu le(s) PO QD 06/22/2018 06/22/2018 Inactive Augmentin 875 mg-125 mg tablet RxNorm: 715752 1 Tablet(s) PO BID 06/30/2018 Inactive clindamycin HCl 300 mg capsule RxNorm: 987111 2 Capsule(s) PO TID 0 11/30/2017 12/09/2017 Inactive azithromycin 250 mg tablet RxNorm: 554985 2 Tablet(s) P O on day one then 1 tab on days 2-5 08/04/2016 08/03/2016 Inactive prednisone 20 mg tablet RxNorm: 608958 1 Tablet(s) PO QD 08/04/2016 0 08/08/2016 Inactive Augmentin 875 mg-125 mg tablet RxNorm: 434061 1 Tablet(s) PO BID 04/06/2016 Inactive Medrol (Anders) 4 mg tablets in a dose pack RxNorm: 773288 as directed Tablet(s) PO QD 03/28/2016 04/01/2016 Inactive omeprazole 40 mg capsule,delayed release RxNorm: 307375 1 Capsu le(s) PO QD 02/04/2016 08/03/2016 Inactive omeprazole 40 mg capsule,delayed release RxNorm: 999047 1 Capsu le(s) PO BID 01/14/2016 02/03/2016 Inactive clindamycin 300 mg capsule RxNorm: 217036 1 Capsule(s) PO QID 08/1408/24/2015 Inactive Bactroban 2 % topical ointment RxNorm: 000760 Apply top ically to affected area twice daily for 10 days 08/15/2015 11/08/2015 Inactive omeprazole 40 mg capsule,delayed release RxNorm: 877924 1 Capsu le(s) PO QHS 06/07/2015 08/14/2015 Inactive Humira 40 mg/0.8 mL subcutaneous syringe kit RxNorm: 299377 Milliliter(s) SQ every 2 weeks (Dr Elliott) No Start Date Active omeprazole 40 mg capsule,delayed release RxNorm: 654899 1 Capsu le(s) PO QD No Start Date 01/13/2016 Inactive Medication Administered No Medication Administered data Immunizations No Immunization data Results Observation Observation Code Item Item Code Result Date S [facility] [place] Location IRON 71336 Iron 136 ug/dL 11/15/2015 Unknown FERRITIN 31127 FERRITIN 269 ng/mL 11/15/2015 Unknown COMPREHENSIVE METABOLIC 62790 AST 19 U/L 2015 Unknown COMPREHENSIVE METABOLIC 50534 ALT 26 U/L 2015 Unknown COMPREHENSIVE METABOLIC 84882 BUN 12 mg/dL 2015 Unknown COMPREHENSIVE METABOLIC 68316 ALBUMIN 4.3 g/dL 2015 Unknown COMPREHENSIVE METABOLIC 20071 CHLORIDE 103 mmol/L 11/08 Unknown COMPREHENSIVE METABOLIC 71448 Bili Total 0.8 mg/dL 11/08 Unknown COMPREHENSIVE METABOLIC 51270 ALK PHOS 56 U/L 2015 Unknown COMPREHENSIVE METABOLIC 59205 SODIUM 135 mmol/L 11/08 Unknown COMPREHENSIVE METABOLIC 42163 CREATININE 1.08 mg/dL 08/2015 Unknown COMPREHENSIVE METABOLIC 70785 CALCIUM 9.6 mg/dL 2015 Unknown COMPREHENSIVE METABOLIC 10250 POTASSIUM 4.2 mmol/L 11/08 Unknown COMPREHENSIVE METABOLIC 76913 Total Protein 7.4 g/dL Unknown COMPREHENSIVE METABOLIC 46170 Glucose 82 mg/dL 2015 Unknown COMPREHENSIVE METABOLIC 11940 Bicarbonate 23 mmol/L 08/2015 Unknown COMPREHENSIVE METABOLIC 30724 AGAP 9 mmol/L 2015 Unknown LIPID GROUP 89887 Cholesterol 176 mg/dL 11/09/2015 Unkno wn LIPID GROUP 93564 Triglyceride 81 mg/dL 11/09/2015 Unkn own LIPID GROUP 71135 HDL CHOLESTEROL 36 mg/dL 11/09/2015 U nknown LIPID GROUP 22530 Chol/HDL Ratio 4.89 ratio 11/09/2015 U nknown LIPID GROUP 66778 NON-HDL Chol 140 mg/dL 11/09/2015 Unkn own LIPID GROUP 55270 LDL Cholesterol 124 mg/dL 11/09/2015 U nknown GFR CALC 9036626 GFR Non Afr Amr >60 mL/min 11/09/2015 Un known GFR CALC 3301101 GFR Afr Amr >60 mL/min 11/09/2015 Unknow n FREE T4 07121 T4 Free 1.58 ng/dL 11/09/2015 Unknown THYROID STIMULATING HORMONE 85876 TSH 1.726 uIU/mL 11/09/2015 Unknown COMPLETE BLOOD COUNT 3457716 WBC 6.2 10e9/L 11/09/19 16 Unknown COMPLETE BLOOD COUNT 8691973 RBC 5.59 10e12/L 2015 Unknown COMPLETE BLOOD COUNT 8999743 HEMOGLOBIN 18.1 g/dL 11/09/19 16 Unknown COMPLETE BLOOD COUNT 6152552 HEMATOCRIT 50.1 % 11/09/19 16 Unknown COMPLETE BLOOD COUNT 2608767 MCV 89.6 fL 6 Unknown COMPLETE BLOOD COUNT [id number] MCH 32.4 pg 6 Unknown COMPLETE BLOOD COUNT 5600009 MCHC 36.1 g/dL 6 Unknown COMPLETE BLOOD COUNT [id number] PLATELET COUNT 269 10e9/L 08/2015 Unknown COMPLETE BLOOD COUNT [id number] Mean Plt Volume 10.8 fL 08/2015 Unknown COMPLETE BLOOD COUNT 0592333 Neut Auto 47.0 % 6 Unknown COMPLETE BLOOD COUNT 7629982 Lymph Auto 33.2 % 11/09/19 16 Unknown COMPLETE BLOOD COUNT 1829994 [place] Auto 16.5 % 6 Unknown COMPLETE BLOOD COUNT 4233649 RDW 13.2 % 6 Unknown COMPLETE BLOOD COUNT 5129137 Eos Auto 2.8 % 6 Unknown COMPLETE BLOOD COUNT 6432382 Baso Auto 0.5 % 6 Unknown COMPLETE BLOOD COUNT 7241321 Neutrophil Abs 2.91 10e9/L Unknown COMPLETE BLOOD COUNT 2137856 Lymphocyte Abs 2.06 10e9/L Unknown COMPLETE BLOOD COUNT 1080823 Monocyte Abs 1.02 10e9/L 08/2015 Unknown COMPLETE BLOOD COUNT [id number] Eosinophil Abs 0.17 10e9/L Unknown COMPLETE BLOOD COUNT 3264470 RDW-SD 42.9 fL 6 Unknown COMPLETE BLOOD COUNT [id number] Basophil Abs 0.03 10e9/L 08/2015 Unknown Procedures Procedure Codes Date STREP A ASSAY W/OPTIC CPT-4: 86908 08/02/2018 STREP A ASSAY W/OPTIC CPT-4: 92288 06/21/2018 ASSAY OF IRON CPT-4: 15201 11/09/2015 ASSAY OF FERRITIN CPT-4: 98000 11/09/2015 DRAINAGE OF SKIN ABSCESS CPT-4: 93617 08/15/2015 AEROBIC WOUND CULTURE & STN CPT-4: 27999 08/15/2015 Vital Signs Date Vital 05/09/2019 Blood [...] 1: 126/82 Code: 8480-6 BMI: 29.1 Code: 66670-2 Heart Rate 1: 72 bpm Height: 5'10" Respiratory Rate: 20 bpm SpO2: 97% Tempera ture: 36.8 (C) / 98.3 (F) Weight: 203 lbs 06/21/2018 Blood Pressure 1: 128/90 Code: 8480-6 Heart Rate 1: 80 bpm Respiratory Rate: 18 bpm SpO2: 98% Temperature: 36.7 (C) / 98.1 (F) We ight: 207 lbs 11/30/2017 Blood Pressure 1: 122/78 Code: 8480-6 BMI: 27.7 Code: 79440-2 Heart Rate 1: 76 bpm Height: 5'10" SpO2: 98% Temperature: 36.4 (C) / 97.5 (F) Weight: 193 lbs 08/04/2016 Blood Pressure 1: 122/78 Code: 8480-6 BMI: 28.1 Code: 30825-0 Heart Rate 1: 72 bpm Height: 5'10" Respiratory Rate: 22 bpm SpO2: 97% Tempera ture: 36.3 (C) / 97.3 (F) Weight: 196 lbs 03/28/2016 Blood Pressure 1: 136/74 Code: 8480-6 Heart Rate 1: 100 bpm Respiratory Rate: 24 bpm SpO2: 97% Temperature: 36.4 (C) / 97.6 (F) We ight: 198 lbs 02/04/2016 Blood Pressure 1: 112/70 Code: 8480-6 BMI: 27.6 Code: 40172-9 Heart Rate 1: 72 bpm Height: 5'11" Respiratory Rate: 20 bpm Temperature: 36 .6 (C) / 97.8 (F) Weight: 198 lbs 01/14/2016 Blood Pressure 1: 124/78 Code: 8480-6 BMI: 27.8 Code: 09849-5 Heart Rate 1: 76 bpm Height: 5'11" Respiratory Rate: 20 bpm Temperature: 36 .7 (C) / 98.0 (F) Weight: 199 lbs 11/09/2015 Blood Pressure 1: 124/78 Code: 8480-6 BMI: 27.2 Code: 38572-5 Heart Rate 1: 76 bpm Height: 5'11" Respiratory Rate: 20 bpm Temperature: 36 .7 (C) / 98.0 (F) Weight: 195 lbs 08/15/2015 Blood Pressure 1: 124/78 Code: 8480-6 Heart Rate 1: 82 bpm Respiratory Rate: 20 bpm SpO2: 97% Temperature: 35.9 (C) / 96.6 (F) We ight: 198 lbs 06/07/2015 Blood Pressure 1: 128/70 Code: 8480-6 BMI: 28.3 Code: 49272-0 Heart Rate 1: 76 bpm Height: 5'11" [...] Patient Encounters Encounter Performer Location Codes Date ([id number]) OFFICE/OUTPATIENT VISIT EST Diagnosis: Acute tonsillitis, unspecified[ICD10: J03.90] Justa [facility] CPT-4: 90689 05/09/2019 ([id number]) OFFICE/OUTPATIENT VISIT EST Diagnosis: Sinusitis[ICD10: J32.9] Diagnosis: Acute suppurative otitis media of right ear[ICD10: H66.001] Justa [facility] CPT-4: 94979 03/07/2019 ([id number]) OFFICE/OUTPATIENT VISIT EST Diagnosis: Acute pharyngitis, unspecified[ICD10: J02.9] Diagnosis: Acute tonsillitis, unspecified[ICD10: J03.90] Ross [facility] CPT-4: 36779 08/02/2018 ([id number]) OFFICE/OUTPATIENT VISIT EST Diagnosis: Acute recurrent maxillary sinusitis[ICD10: J01.01] Diagnosis: Acute pharyngitis, unspecified[ICD10: J02.9] Mary Elder [facility] CPT-4: 60877 06/21/2018 ([id number]) OFFICE/OUTPATIENT VISIT EST Diagnosis: Cutaneous abscess of abdominal wall[ICD10: L02.211] Ross [facility] CPT-4: 25210 11/30/2017 ([id number]) OFFICE/OUTPATIENT VISIT EST Diagnosis: Acute upper respiratory infection, unspecified[ICD10: J06.9] Diagnosis: Otitis media, unspecified, left ear[ICD10: H66.92] [facility]PT[facility]: 64744 08/04/2016 OFFICE/OUTPATIENT VISIT EST Diagnosis: Acute sinusitis, unspecified[ICD10: J01.90] Dacia Champion [facility] CPT-4: 32056 03/28/2016 OFFICE/OUTPATIENT VISIT EST Diagnosis: Gastro-esophageal reflux disease without esophagitis[ICD10: K21.9] Ross [facility]INK [facility] CPT-4: 53668 02/04/2016 ([id number]) OFFICE/OUTPATIENT VISIT EST Diagnosis: Chest pain, unspecified[ICD10: R07.9] Diagnosis: Gastro-esophageal reflux disease without esophagitis[ICD10: K21.9] Diagnosis: COUGH[ICD10: R05] Ross MELGAR [facility] CPT-4: 36998 01/14/2016 OFFICE/OUTPATIENT VISIT EST Diagnosis: Epigastric pain[ICD10: R10.13] Diagnosis: Diarrhea, unspecified[ICD10: R19.7] Diagnosis: Other specified abnormal findings of blood chemistry[ICD10: R79.89] Dacia ZhangSegundo [facility] CPT-4: 28181 11/09/2015 ([id number]) OFFICE/OUTPATIENT VISIT EST Diagnosis: Cutaneous abscess, unspecified[ICD10: L02.91] Tammy Martinez [facility] CPT-4: 06182 08/15/2015 OFFICE/OUTPATIENT VISIT NEW Diagnosis: Psoriasis, unspecified[ICD10: L40.9] Diagnosis: Gastro-esophageal reflux disease without esophagitis[ICD10: K21.9] Diagnosis: Headache[ICD10: R51] Diagnosis: Cervicalgia[ICD10: M54.2] Ross Melgar [facility] CPT-4: 71764 06/07/2015 Plan of Care Planned Activity Notes [...] ICD-10 : J32.9 03/07/2019 Appointment: Justa Stevenson [address] [place], [place] [id number] ACUTE ILLNESS 03/07/2019 Visit Plan: [...] Rest, Fluids... 08/02/2018 Appointment: Ross Fink WPtel: [address] [place] [address] ACUTE ILLNESS 08/02/2018 Visit Diagnosis Plan: Acute recurrent maxillary sinusi tis Discussion: Strep A- negative. Treating for sinusitis. Augmentin- take as directed. Sinus rinses encouraged. Salt water gargles. Fluids, rest, Tylenol or Motrin for pain and fever. Make annual wellness visit when checking out. Patient states understanding. ICD-9 : 461.0 ICD-10 : J01.01 06/21/2018 Appointment: Mary Elder [address] [place] [address] ACUTE ILLNESS 06/21/2018 Visit Diagnosis Plan: Cutaneous abscess of abdominal w all Discussion: Some bloody discharge expressed but no pus--his got old blood and pus out last night Warm compresses and clindamycin and notify if worsens or persists ICD-9 : 682.2 ICD-10 : L02.211 11/30/2017 Appointment: Ross Fink WPtel: [address] [place] [address] ACUTE ILLNESS 11/30/2017 Patient Education: Patient Medication Summary Completed 11/30/2017 Visit Diagnosis Plan: Acute upper respiratory infectio n, unspecified Discussion: Continue OTC meds and home remedies Rxs as above Notifiy prescriber of humira of treatment plan Rest, fluids, vicks, humidifier, etc Follow up PRN ICD-9 : 465.9 ICD-10 : J06.9 08/04/2016 Appointment: Tammy Martinez [address] [place] [address] ACUTE ILLNESS 08/04/2016 Patient Education: Patient Medication Summary Completed 08/04/2016 Visit Plan: ERx Augmentin and Medrol Dos pack Has Mucinex D at home Nasal saline, humidified air, Tylenol/ibuprofen prn Discussed s/s of worsening, go to UC/QC over weekend if needed 03/28/2016 Appointment: Dacia Champion WPtel: [address] [place] [address] ACUTE ILLNESS 03/28/2016 Patient Education: Patient Medication Summary Completed 03/28/2016 Visit Plan: Finish omeprazole at 40mg po BID for full month then decrease to 40mg daily for 1month then if no return of symptoms will decrease to 20mg daily for 1month then fwup 02/04/2016 Appointment: Ross Fink WPtel: [address] [place] [address] 01/30 confirmed`sl FOLLOW UP 02/04/2016 Patient Education: Patient Medication Summary Completed 02/04/2016 [facility] - Odd Torsten Delarosa Completed 02/04/2016 Visit Plan: No caffeine, no nicotine, no alcohol, no mints, no late meals, elevate HOB 30 degrees Omeprazole 40mg po BID Check CXR and EKG 01/14/2016 Appointment: Ross Fink WPtel: [address] [place] [address] ACUTE ILLNESS 01/14/2016 Patient Education: Patient Medication Summary Completed 01/14/2016 Care Plan: CHEST X-RAY 2VW FRONTAL&LATL LOINC : 65036-9 Pending 01/14/2016 Appointment: Ross Fink WPtel: [address] [place] [address] 11/[address] sterling [place] visit~sl RESCHEDULED 0 11/21/2015 Care Plan: ECHO EXAM OF ABDOMEN LOINC : 46966-8 Pending 11/10/2015 Visit Plan: Declines medication for diar beverley Declines stool studies CMP, CBC, TSH, Lipids (history of hyperlipidemia) GB U/S RTC/ER for worsening Discussed correlation with high fat foods, avoid. 11/09/2015 Appointment: Dacia Champion WPtel: [address] [facility] ACUTE ILLNESS 11/09/2015 Patient Education: Patient Medication Summary Completed 11/09/2015 Appointment: Tammy Martinez [address] [facility] Called at 9:20am.Patients rash went away over night. feeling better.-sp ACUTE ILLNESS 10/31/2015 Appointment: Tammy Martinez [address] [facility] US called back within minutes of scheduling to notify he could not make the appointment time. Per Dr Fink, this is a forgiven since he called back immediately to cancel the appointment.~lb RESCHEDULED 10/30/2015 Visit Plan: Rxs as above until culture r eceived Reviewed wound care Will need follow up if not improving as expected 08/15/2015 Appointment: Tammy Martinez [address] [place], [place] [id number] ACUTE ILLNESS 08/15/2015 Patient Education: Patient Medication [...] well 06/07/2015 [facility]ment: [facility] [address] [facility] 06/05-SP 06/06 Confirmed~sl ACUTE ILLNESS 06/06 Patient [...]
--- OUTSIDE RECORDS SUMMARY | 2019-10-13 06:56 | XMS REPORT | CCD ---
Author Author Michael Fink D.O. Organization [facility] Address [address] [place] [address] Phone Care Team Providers Care Editor Magazine Name Role Phone Ross Fink D.O., PP Unavailable CCM Unavailable Summary Purpose Interface Exchange Insurance Providers Payer name Policy type / Coverage type Covered democrat ID Effective Begin Date Effective End Date [facility] Commercial Insurance [id number] Unkno wn Family history Father Diagnosis Age At Onset Suicide attempt Unknown Grandfather Diagnosis Age At Onset Myocardial infarction Unknown sepsis Unknown Social History Social History Element Codes Description Effective Dates Marital status Unknown 06/07/2015 Employment Unknown Currently employed [employer] 06/07/[address]: 6556163 Former smoker 06/07/[address]: 916889 Currently drinks alcohol 06/06 Has the patient [...] Fill Instructions Zithromax 500 mg tablet RxNorm: 604718 1 Tablet(s) Oral QD 05/09/19 20 05/14/2019 Active Medrol (Anders) 4 mg tablets in a dose pack RxNorm: 240817 Tablet(s) Oral take as directed 03/14/2019 03/14/2019 Inactive Medrol (Anders) 4 mg tablets in a dose pack RxNorm: 944650 Tablet(s) Oral take as directed 03/14/2019 03/13/2019 Inactive Augmentin 875 mg-125 mg tablet RxNorm: 435868 1 Tablet(s) Oral two times a day 03/07/2019 03/17/2019 Inactive Zithromax 500 mg tablet RxNorm: 134337 1 Tablet(s) PO QD 08/02/2018 0 08/08/2018 Inactive omeprazole 40 mg capsule,delayed release RxNorm: 903406 1 Capsu le(s) PO QD 06/23/2018 03/06/2019 Inactive omeprazole 40 mg capsule,delayed release RxNorm: 437992 1 Capsu le(s) PO QD 06/22/2018 06/22/2018 Inactive Augmentin 875 mg-125 mg tablet RxNorm: 169794 1 Tablet(s) PO BID 06/30/2018 Inactive clindamycin HCl 300 mg capsule RxNorm: 001503 2 Capsule(s) PO TID 0 11/30/2017 12/09/2017 Inactive azithromycin 250 mg tablet RxNorm: 325314 2 Tablet(s) P O on day one then 1 tab on days 2-5 08/04/2016 08/03/2016 Inactive prednisone 20 mg tablet RxNorm: 993395 1 Tablet(s) PO QD 08/04/2016 0 08/08/2016 Inactive Augmentin 875 mg-125 mg tablet RxNorm: 412356 1 Tablet(s) PO BID 04/06/2016 Inactive Medrol (Anders) 4 mg tablets in a dose pack RxNorm: 420236 as directed Tablet(s) PO QD 03/28/2016 04/01/2016 Inactive omeprazole 40 mg capsule,delayed release RxNorm: 774796 1 Capsu le(s) PO QD 02/04/2016 08/03/2016 Inactive omeprazole 40 mg capsule,delayed release RxNorm: 278915 1 Capsu le(s) PO BID 01/14/2016 02/03/2016 Inactive clindamycin 300 mg capsule RxNorm: 365681 1 Capsule(s) PO QID 08/1408/24/2015 Inactive Bactroban 2 % topical ointment RxNorm: 909151 Apply top ically to affected area twice daily for 10 days 08/15/2015 11/08/2015 Inactive omeprazole 40 mg capsule,delayed release RxNorm: 398828 1 Capsu le(s) PO QHS 06/07/2015 08/14/2015 Inactive Humira 40 mg/0.8 mL subcutaneous syringe kit RxNorm: 426510 Milliliter(s) SQ every 2 weeks (Dr Elliott) No Start Date Active omeprazole 40 mg capsule,delayed release RxNorm: 805683 1 Capsu le(s) PO QD No Start Date 01/13/2016 Inactive Medication Administered No Medication Administered data Immunizations No Immunization data Results Observation Observation Code Item Item Code Result Date [facility] Location IRON 59901 Iron 136 ug/dL 11/15/2015 Unknown FERRITIN 17522 FERRITIN 269 ng/mL 11/15/2015 Unknown COMPREHENSIVE METABOLIC 64883 AST 19 U/L 2015 Unknown COMPREHENSIVE METABOLIC 93251 ALT 26 U/L 2015 Unknown COMPREHENSIVE METABOLIC 24465 BUN 12 mg/dL 2015 Unknown COMPREHENSIVE METABOLIC 71678 ALBUMIN 4.3 g/dL 2015 Unknown COMPREHENSIVE METABOLIC 55616 CHLORIDE 103 mmol/L 11/08 Unknown COMPREHENSIVE METABOLIC 02231 Bili Total 0.8 mg/dL 11/08 Unknown COMPREHENSIVE METABOLIC 16730 ALK PHOS 56 U/L 2015 Unknown COMPREHENSIVE METABOLIC 58549 SODIUM 135 mmol/L 11/08 Unknown COMPREHENSIVE METABOLIC 35305 CREATININE 1.08 mg/dL 08/2015 Unknown COMPREHENSIVE METABOLIC 96140 CALCIUM 9.6 mg/dL 2015 Unknown COMPREHENSIVE METABOLIC 14059 POTASSIUM 4.2 mmol/L 11/08 Unknown COMPREHENSIVE METABOLIC 28938 Total Protein 7.4 g/dL Unknown COMPREHENSIVE METABOLIC 93168 Glucose 82 mg/dL 2015 Unknown COMPREHENSIVE METABOLIC 36200 Bicarbonate 23 mmol/L 08/2015 Unknown COMPREHENSIVE METABOLIC 76656 AGAP 9 mmol/L 2015 Unknown LIPID GROUP 54541 Cholesterol 176 mg/dL 11/09/2015 Unkno wn LIPID GROUP 38227 Triglyceride 81 mg/dL 11/09/2015 Unkn own LIPID GROUP 77201 HDL CHOLESTEROL 36 mg/dL 11/09/2015 U nknown LIPID GROUP 18164 Chol/HDL Ratio 4.89 ratio 11/09/2015 U nknown LIPID GROUP 84269 NON-HDL Chol 140 mg/dL 11/09/2015 Unkn own LIPID GROUP 31850 LDL Cholesterol 124 mg/dL 11/09/2015 U nknown GFR CALC 6079349 GFR Non Afr Amr >60 mL/min 11/09/2015 Un known GFR CALC [id number] GFR Afr Amr >60 mL/min 11/09/2015 Unknow n FREE T4 64979 T4 Free 1.58 ng/dL 11/09/2015 Unknown THYROID STIMULATING HORMONE 96342 TSH 1.726 uIU/mL 11/09/2015 Unknown COMPLETE BLOOD COUNT 7398851 WBC 6.2 10e9/L 11/09/19 16 Unknown COMPLETE BLOOD COUNT [id number] RBC 5.59 10e12/L 2015 Unknown COMPLETE BLOOD COUNT 9335041 HEMOGLOBIN 18.1 g/dL 11/09/19 16 Unknown COMPLETE BLOOD COUNT [id number] HEMATOCRIT 50.1 % 11/09/19 16 Unknown COMPLETE BLOOD COUNT 6085067 MCV 89.6 fL 6 Unknown COMPLETE BLOOD COUNT 2664522 MCH 32.4 pg 6 Unknown COMPLETE BLOOD COUNT 2621729 MCHC 36.1 g/dL 6 Unknown COMPLETE BLOOD COUNT 3304135 PLATELET COUNT 269 10e9/L 08/2015 Unknown COMPLETE BLOOD COUNT 9893138 Mean Plt Volume 10.8 fL 08/2015 Unknown COMPLETE BLOOD COUNT 9569002 Neut Auto 47.0 % 6 Unknown COMPLETE BLOOD COUNT 9751032 Lymph Auto 33.2 % 11/09/19 16 Unknown COMPLETE BLOOD COUNT 8995855 [place] Auto 16.5 % 6 Unknown COMPLETE BLOOD COUNT 0676203 RDW 13.2 % 6 Unknown COMPLETE BLOOD COUNT 9112058 Eos Auto 2.8 % 6 Unknown COMPLETE BLOOD COUNT 3522989 Baso Auto 0.5 % 6 Unknown COMPLETE BLOOD COUNT 6674972 Neutrophil Abs 2.91 10e9/L Unknown COMPLETE BLOOD COUNT [id number] Lymphocyte Abs 2.06 10e9/L Unknown COMPLETE BLOOD COUNT [id number] Monocyte Abs 1.02 10e9/L 08/2015 Unknown COMPLETE BLOOD COUNT [id number] Eosinophil Abs 0.17 10e9/L Unknown COMPLETE BLOOD COUNT 6256273 RDW-SD 42.9 fL 6 Unknown COMPLETE BLOOD COUNT [id number] Basophil Abs 0.03 10e9/L 08/2015 Unknown Procedures Procedure Codes Date STREP A ASSAY W/OPTIC CPT-4: 63303 08/02/2018 STREP A ASSAY W/OPTIC CPT-4: 22268 06/21/2018 ASSAY OF IRON CPT-4: 74608 11/09/2015 ASSAY OF FERRITIN CPT-4: 28298 11/09/2015 DRAINAGE OF SKIN ABSCESS CPT-4: 28988 08/15/2015 AEROBIC WOUND CULTURE & STN CPT-4: 16451 08/15/2015 Vital Signs Date Vital 05/09/2019 Blood [...] 1: 126/82 Code: 8480-6 BMI: 29.1 Code: 41503-8 Heart Rate 1: 72 bpm Height: 5'10" Respiratory Rate: 20 bpm SpO2: 97% Tempera ture: 36.8 (C) / 98.3 (F) Weight: 203 lbs 06/21/2018 Blood Pressure 1: 128/90 Code: 8480-6 Heart Rate 1: 80 bpm Respiratory Rate: 18 bpm SpO2: 98% Temperature: 36.7 (C) / 98.1 (F) We ight: 207 lbs 11/30/2017 Blood Pressure 1: 122/78 Code: 8480-6 BMI: 27.7 Code: 01565-7 Heart Rate 1: 76 bpm Height: 5'10" SpO2: 98% Temperature: 36.4 (C) / 97.5 (F) Weight: 193 lbs 08/04/2016 Blood Pressure 1: 122/78 Code: 8480-6 BMI: 28.1 Code: 57440-9 Heart Rate 1: 72 bpm Height: 5'10" Respiratory Rate: 22 bpm SpO2: 97% Tempera ture: 36.3 (C) / 97.3 (F) Weight: 196 lbs 03/28/2016 Blood Pressure 1: 136/74 Code: 8480-6 Heart Rate 1: 100 bpm Respiratory Rate: 24 bpm SpO2: 97% Temperature: 36.4 (C) / 97.6 (F) We ight: 198 lbs 02/04/2016 Blood Pressure 1: 112/70 Code: 8480-6 BMI: 27.6 Code: 07120-4 Heart Rate 1: 72 bpm Height: 5'11" Respiratory Rate: 20 bpm Temperature: 36 .6 (C) / 97.8 (F) Weight: 198 lbs 01/14/2016 Blood Pressure 1: 124/78 Code: 8480-6 BMI: 27.8 Code: 40304-2 Heart Rate 1: 76 bpm Height: 5'11" Respiratory Rate: 20 bpm Temperature: 36 .7 (C) / 98.0 (F) Weight: 199 lbs 11/09/2015 Blood Pressure 1: 124/78 Code: 8480-6 BMI: 27.2 Code: 01153-9 Heart Rate 1: 76 bpm Height: 5'11" Respiratory Rate: 20 bpm Temperature: 36 .7 (C) / 98.0 (F) Weight: 195 lbs 08/15/2015 Blood Pressure 1: 124/78 Code: 8480-6 Heart Rate 1: 82 bpm Respiratory Rate: 20 bpm SpO2: 97% Temperature: 35.9 (C) / 96.6 (F) We ight: 198 lbs 06/07/2015 Blood Pressure 1: 128/70 Code: 8480-6 BMI: 28.3 Code: 92185-9 Heart Rate 1: 76 bpm Height: 5'11" [...] Patient Encounters Encounter Performer Location Codes Date ([id number]) OFFICE/OUTPATIENT VISIT EST Diagnosis: Acute tonsillitis, unspecified[ICD10: J03.90] Justa FINK [facility] CPT-4: 08357 05/09/2019 ([id number]) OFFICE/OUTPATIENT VISIT EST Diagnosis: Sinusitis[ICD10: J32.9] Diagnosis: Acute suppurative otitis media of right ear[ICD10: H66.001] Justa FINK [facility] CPT-4: 05575 03/07/2019 ([id number]) OFFICE/OUTPATIENT VISIT EST Diagnosis: Acute pharyngitis, unspecified[ICD10: J02.9] Diagnosis: Acute tonsillitis, unspecified[ICD10: J03.90] Ross FINK [facility] CPT-4: 10341 08/02/2018 ([id number]) OFFICE/OUTPATIENT VISIT EST Diagnosis: Acute recurrent maxillary sinusitis[ICD10: J01.01] Diagnosis: Acute pharyngitis, unspecified[ICD10: J02.9] Mary Elder ROSS FINK [facility] CPT-4: 93176 06/21/2018 ([id number]) OFFICE/OUTPATIENT VISIT EST Diagnosis: Cutaneous abscess of abdominal wall[ICD10: L02.211] Ross FINK [facility] CPT-4: 59178 11/30/2017 ([id number]) OFFICE/OUTPATIENT VISIT EST Diagnosis: Acute upper respiratory infection, unspecified[ICD10: J06.9] Diagnosis: Otitis media, unspecified, left ear[ICD10: H66.92] [facility] 23535 08/04/2016 OFFICE/OUTPATIENT VISIT EST Diagnosis: Acute sinusitis, unspecified[ICD10: J01.90] Dacia Champion ROSS FINK [facility] CPT-4: 24706 03/28/2016 OFFICE/OUTPATIENT VISIT EST Diagnosis: Gastro-esophageal reflux disease without esophagitis[ICD10: K21.9] Ross FINK [facility] CPT-4: 74301 02/04/2016 ([id number]) OFFICE/OUTPATIENT VISIT EST Diagnosis: Chest pain, unspecified[ICD10: R07.9] Diagnosis: Gastro-esophageal reflux disease without esophagitis[ICD10: K21.9] Diagnosis: COUGH[ICD10: R05] Ross MELGAR [employer] [facility] CPT-4: 26327 01/14/2016 OFFICE/OUTPATIENT VISIT EST Diagnosis: Epigastric pain[ICD10: R10.13] Diagnosis: Diarrhea, unspecified[ICD10: R19.7] Diagnosis: Other specified abnormal findings of blood chemistry[ICD10: R79.89] Dacia ZhangSegundo ROSS MELGAR [place] [employer] [facility] CPT-4: 90809 11/09/2015 ([id number]) OFFICE/OUTPATIENT VISIT EST Diagnosis: Cutaneous abscess, unspecified[ICD10: L02.91] Tammy Martinez [facility]S [employer] [place] [employer] [facility] CPT-4: 09053 08/15/2015 OFFICE/OUTPATIENT VISIT NEW Diagnosis: Psoriasis, unspecified[ICD10: L40.9] Diagnosis: Gastro-esophageal reflux disease without esophagitis[ICD10: K21.9] Diagnosis: Headache[ICD10: R51] Diagnosis: Cervicalgia[ICD10: M54.2] Ross Melgar [facility] [employer] [place] [employer] [facility] CPT-4: 79138 06/07/2015 Plan of Care Planned Activity Notes [...] ICD-10 : J32.9 03/07/2019 Appointment: Justa Stevenson [address] [place], [place] [id number] ACUTE ILLNESS 03/07/2019 Visit Plan: Supportive care. [...] Rest, Fluids... 08/02/2018 Appointment: Ross Fink WPtel: [address] [place] [address] ACUTE ILLNESS 08/02/2018 Visit Diagnosis Plan: Acute recurrent maxillary sinusi tis Discussion: Strep A- negative. Treating for sinusitis. Augmentin- take as directed. Sinus rinses encouraged. Salt water gargles. Fluids, rest, Tylenol or Motrin for pain and fever. Make annual wellness visit when checking out. Patient states understanding. ICD-9 : 461.0 ICD-10 : J01.01 06/21/2018 Appointment: Mary Elder [address] [place] [address] ACUTE ILLNESS 06/21/2018 Visit Diagnosis Plan: Cutaneous abscess of abdominal w all Discussion: Some bloody discharge expressed but no pus--his got old blood and pus out last night Warm compresses and clindamycin and notify if worsens or persists ICD-9 : 682.2 ICD-10 : L02.211 11/30/2017 Appointment: Ross Fink WPtel: [address] [place] [address] ACUTE ILLNESS 11/30/2017 Patient Education: Patient Medication Summary Completed 11/30/2017 Visit Diagnosis Plan: Acute upper respiratory infectio n, unspecified Discussion: Continue OTC meds and home remedies Rxs as above Notifiy prescriber of humira of treatment plan Rest, fluids, vicks, humidifier, etc Follow up PRN ICD-9 : 465.9 ICD-10 : J06.9 08/04/2016 Appointment: Tammy Martinez [address] [place] [address] ACUTE ILLNESS 08/04/2016 Patient Education: Patient Medication Summary Completed 08/04/2016 Visit Plan: ERx Augmentin and Medrol Dos pack Has Mucinex D at home Nasal saline, humidified air, Tylenol/ibuprofen prn Discussed s/s of worsening, go to UC/QC over weekend if needed 03/28/2016 Appointment: Dacia Champion WPtel: [address] [place] [address] ACUTE ILLNESS 03/28/2016 Patient Education: Patient Medication Summary Completed 03/28/2016 Visit Plan: Finish omeprazole at 40mg po BID for full month then decrease to 40mg daily for 1month then if no return of symptoms will decrease to 20mg daily for 1month then fwup 02/04/2016 Appointment: Ross Fink WPtel: [address] [place] [address] 01/30 confirmed`sl FOLLOW UP 02/04/2016 Patient Education: Patient Medication Summary Completed 02/04/2016 Patient Education: [facility] - Prilose - 1st Mo Free - Odd Torsten Delarosa Completed 02/04/2016 Visit Plan: No caffeine, no nicotine, no alcohol, no mints, no late meals, elevate HOB 30 degrees Omeprazole 40mg po BID Check CXR and EKG 01/14/2016 Appointment: Ross Fink WPtel: [address] [place] [address] ACUTE ILLNESS 01/14/2016 Patient Education: Patient Medication Summary Completed 01/14/2016 Care Plan: CHEST X-RAY 2VW FRONTAL&LATL LOINC : 60832-3 Pending 01/14/2016 Appointment: Ross Fink WPtel: [address] [place] [address] 11/[address] sterling [place] visit~sl RESCHEDULED 0 11/21/2015 Care Plan: ECHO EXAM OF ABDOMEN LOINC : 46486-2 Pending 11/10/2015 Visit Plan: Declines medication for diar beverley Declines stool studies CMP, CBC, TSH, Lipids (history of hyperlipidemia) GB U/S RTC/ER for worsening Discussed correlation with high fat foods, avoid. 11/09/2015 Appointment: Dacia Champion WPtel: [address] [facility] ACUTE ILLNESS 11/09/2015 Patient Education: Patient Medication Summary Completed 11/09/2015 Appointment: Tammy Martinez [address] [facility] Called at 9:20am.Patients rash went away over night. feeling better.-sp ACUTE ILLNESS 10/31/2015 Appointment: Tammy Martinez [address] [facility] [place] called back within minutes of scheduling to notify he could not make the appointment time. Per Dr Fink, this is a forgiven since he called back immediately to cancel the appointment.~lb RESCHEDULED 10/30/2015 Visit Plan: Rxs as above until culture r eceived Reviewed wound care Will need follow up if not improving as expected 08/15/2015 Appointment: Tammy Martinez [address] [place], [place] [id number] ACUTE ILLNESS 08/15/2015 Patient Education: Patient Medication [...] well 06/07/2015 [facility]ment[facility] [address] [facility] 06/05-SP 06/06 Confirmed~sl ACUTE ILLNESS 06/06 Patient [...]
--- OUTSIDE RECORDS SUMMARY | 2019-10-13 06:56 | XMS REPORT | CCD ---
Author Author Michael Fink D.O. Organization [facility]S FINK DO [facility] Address [address] [place] [address] Phone Care Team Providers Care Senior Sales Engineer Name Role Phone Ross Fink D.O., PP Unavailable CCM Unavailable Summary Purpose Interface Exchange Insurance Providers Payer name Policy type / Coverage type Covered alliance party ID Effective Begin Date Effective End Date [facility] Commercial Insurance [id number] Unkno wn Family history Father Diagnosis Age At Onset Suicide attempt Unknown Grandfather Diagnosis Age At Onset Myocardial infarction Unknown sepsis Unknown Social History Social History Element Codes Description Effective Dates Marital status Unknown 06/07/2015 Employment Unknown Currently employed [employer] 06/07/[address]: 1748775 Former smoker 06/07/[address]: 605383 Currently drinks alcohol 06/06 Has the patient ever used illegal drugs? Unknown Has nev er used illegal drugs 06/07/2015 Allergies, Adverse Reactions, Alerts Substance Reaction Codes Entered Date Inactivated Date Status * NO KNOWN FOOD ALLERGIES Unknown 06/07/2015 No Inactiv e Date Active SULFA(SULFONAMIDE ANTIBIOTICS) reaction Unknown 06/07/2015 No In active Date Active * NO KNOWN ENVIRONMENTAL ALLERGIES Unknown 06/07/2015 N o Inactive Date Active Problems Condition Codes Effective Dates Condition Status Acute suppurative otitis media of right ear ICD-9: 382 .00 ICD-10: H66.001 03/07/2019 Active Sinusitis ICD-9: 473.9 ICD-10: J32.9 03/07/2019 Active Acute pharyngitis, unspecified ICD-9: 462 ICD-10: J02.9 06/21/2018 Active Acute tonsillitis, unspecified ICD-9: 463 ICD-10: J03.90 08/02/2018 Active Acute recurrent maxillary sinusitis ICD-9: 461.0 [...] Start Date Stop Date Status Fill Instructions Medrol (Anders) 4 mg tablets in a dose pack RxNorm: 325171 Tablet(s) Oral take as directed 03/14/2019 03/14/2019 Inactive Medrol (Anders) 4 mg tablets in a dose pack RxNorm: 430315 Tablet(s) Oral take as directed 03/14/2019 03/13/2019 Inactive Augmentin 875 mg-125 mg tablet RxNorm: 700350 1 Tablet(s) Oral two times a day 03/07/2019 03/17/2019 Active Zithromax 500 mg tablet RxNorm: 333158 1 Tablet(s) PO QD 08/02/2018 0 08/08/2018 Inactive omeprazole 40 mg capsule,delayed release RxNorm: 595958 1 Capsu le(s) PO QD 06/23/2018 03/06/2019 Inactive omeprazole 40 mg capsule,delayed release RxNorm: 897633 1 Capsu le(s) PO QD 06/22/2018 06/22/2018 Inactive Augmentin 875 mg-125 mg tablet RxNorm: 356297 1 Tablet(s) PO BID 06/30/2018 Inactive clindamycin HCl 300 mg capsule RxNorm: 767802 2 Capsule(s) PO TID 0 11/30/2017 12/09/2017 Inactive azithromycin 250 mg tablet RxNorm: 031408 2 Tablet(s) P O on day one then 1 tab on days 2-5 08/04/2016 08/03/2016 Inactive prednisone 20 mg tablet RxNorm: 093294 1 Tablet(s) PO QD 08/04/2016 0 08/08/2016 Inactive Augmentin 875 mg-125 mg tablet RxNorm: 279428 1 Tablet(s) PO BID 04/06/2016 Inactive Medrol (Anders) 4 mg tablets in a dose pack RxNorm: 042606 as directed Tablet(s) PO QD 03/28/2016 04/01/2016 Inactive omeprazole 40 mg capsule,delayed release RxNorm: 596093 1 Capsu le(s) PO QD 02/04/2016 08/03/2016 Inactive omeprazole 40 mg capsule,delayed release RxNorm: 840720 1 Capsu le(s) PO BID 01/14/2016 02/03/2016 Inactive clindamycin 300 mg capsule RxNorm: 049393 1 Capsule(s) PO QID 08/1408/24/2015 Inactive Bactroban 2 % topical ointment RxNorm: 080018 Apply top ically to affected area twice daily for 10 days 08/15/2015 11/08/2015 Inactive omeprazole 40 mg capsule,delayed release RxNorm: 674479 1 Capsu le(s) PO QHS 06/07/2015 08/14/2015 Inactive Humira 40 mg/0.8 mL subcutaneous syringe kit RxNorm: 672790 Milliliter(s) SQ every 2 weeks (Dr Elliott) No Start Date Active omeprazole 40 mg capsule,delayed release RxNorm: 197258 1 Capsu le(s) PO QD No Start Date 01/13/2016 Inactive Medication Administered No Medication Administered data Immunizations No Immunization data Results Observation Observation Code Item Item Code Result Date S vice Location IRON 40767 Iron 136 ug/dL 11/15/2015 Unknown FERRITIN 81917 FERRITIN 269 ng/mL 11/15/2015 Unknown COMPREHENSIVE METABOLIC 07871 AST 19 U/L 2015 Unknown COMPREHENSIVE METABOLIC 02047 ALT 26 U/L 2015 Unknown COMPREHENSIVE METABOLIC 93569 BUN 12 mg/dL 2015 Unknown COMPREHENSIVE METABOLIC 20379 ALBUMIN 4.3 g/dL 2015 Unknown COMPREHENSIVE METABOLIC 51868 CHLORIDE 103 mmol/L 11/08 Unknown COMPREHENSIVE METABOLIC 97122 Bili Total 0.8 mg/dL 11/08 Unknown COMPREHENSIVE METABOLIC 14754 ALK PHOS 56 U/L 2015 Unknown COMPREHENSIVE METABOLIC 00583 SODIUM 135 mmol/L 11/08 Unknown COMPREHENSIVE METABOLIC 43620 CREATININE 1.08 mg/dL 08/2015 Unknown COMPREHENSIVE METABOLIC 89013 CALCIUM 9.6 mg/dL 2015 Unknown COMPREHENSIVE METABOLIC 66010 POTASSIUM 4.2 mmol/L 11/08 Unknown COMPREHENSIVE METABOLIC 54888 Total Protein 7.4 g/dL Unknown COMPREHENSIVE METABOLIC 32508 Glucose 82 mg/dL 2015 Unknown COMPREHENSIVE METABOLIC 39817 Bicarbonate 23 mmol/L 08/2015 Unknown COMPREHENSIVE METABOLIC 53627 AGAP 9 mmol/L 2015 Unknown LIPID GROUP 51865 Cholesterol 176 mg/dL 11/09/2015 Unkno wn LIPID GROUP 81407 Triglyceride 81 mg/dL 11/09/2015 Unkn own LIPID GROUP 00056 HDL CHOLESTEROL 36 mg/dL 11/09/2015 U nknown LIPID GROUP 53971 Chol/HDL Ratio 4.89 ratio 11/09/2015 U nknown LIPID GROUP 93231 NON-HDL Chol 140 mg/dL 11/09/2015 Unkn own LIPID GROUP 49695 LDL Cholesterol 124 mg/dL 11/09/2015 U nknown GFR CALC 5396512 GFR Non Afr Amr >60 mL/min 11/09/2015 Un known GFR CALC 1014654 GFR Afr Amr >60 mL/min 11/09/2015 Unknow n FREE T4 69368 T4 Free 1.58 ng/dL 11/09/2015 Unknown THYROID STIMULATING HORMONE 45762 TSH 1.726 uIU/mL 11/09/2015 Unknown COMPLETE BLOOD COUNT 2276157 WBC 6.2 10e9/L 11/09/19 16 Unknown COMPLETE BLOOD COUNT 1096048 RBC 5.59 10e12/L 2015 Unknown COMPLETE BLOOD COUNT 3224277 HEMOGLOBIN 18.1 g/dL 11/09/19 16 Unknown COMPLETE BLOOD COUNT [id number] HEMATOCRIT 50.1 % 11/09/19 16 Unknown COMPLETE BLOOD COUNT 4677461 MCV 89.6 fL 6 Unknown COMPLETE BLOOD COUNT 8477334 MCH 32.4 pg 6 Unknown COMPLETE BLOOD COUNT 5427520 MCHC 36.1 g/dL 6 Unknown COMPLETE BLOOD COUNT [id number] PLATELET COUNT 269 10e9/L 08/2015 Unknown COMPLETE BLOOD COUNT 0523385 Mean Plt Volume 10.8 fL 08/2015 Unknown COMPLETE BLOOD COUNT [id number] Neut Auto 47.0 % 6 Unknown COMPLETE BLOOD COUNT [id number] Lymph Auto 33.2 % 11/09/19 16 Unknown COMPLETE BLOOD COUNT 0271901 [place] Auto 16.5 % 6 Unknown COMPLETE BLOOD COUNT [id number] RDW 13.2 % 6 Unknown COMPLETE BLOOD COUNT 3980366 Eos Auto 2.8 % 6 Unknown COMPLETE BLOOD COUNT 3152027 Baso Auto 0.5 % 6 Unknown COMPLETE BLOOD COUNT [id number] Neutrophil Abs 2.91 10e9/L Unknown COMPLETE BLOOD COUNT [id number] Lymphocyte Abs 2.06 10e9/L Unknown COMPLETE BLOOD COUNT [id number] Monocyte Abs 1.02 10e9/L 08/2015 Unknown COMPLETE BLOOD COUNT [id number] Eosinophil Abs 0.17 10e9/L Unknown COMPLETE BLOOD COUNT 1222095 RDW-SD 42.9 fL 6 Unknown COMPLETE BLOOD COUNT [id number] Basophil Abs 0.03 10e9/L 08/2015 Unknown Procedures Procedure Codes Date STREP A ASSAY W/OPTIC CPT-4: 08982 08/02/2018 STREP A ASSAY W/OPTIC CPT-4: 47496 06/21/2018 ASSAY OF IRON CPT-4: 10550 11/09/2015 ASSAY OF FERRITIN CPT-4: 78174 11/09/2015 DRAINAGE OF SKIN ABSCESS CPT-4: 23611 08/15/2015 AEROBIC WOUND CULTURE & STN CPT-4: 11926 08/15/2015 Vital Signs Date Vital 03/07/2019 Blood Pressure 1: 134/82 Code: 8480-6 Heart Rate 1: 88 bpm Respiratory Rate: 20 bpm SpO2: 98% Temperature: 37.2 (C) / 99.0 (F) We ight: 198 lbs 08/02/2018 Blood Pressure 1: 126/82 Code: 8480-6 BMI: 29.1 Code: 79864-8 Heart Rate 1: 72 bpm Height: 5'10" Respiratory Rate: 20 bpm SpO2: 97% Tempera ture: 36.8 (C) / 98.3 (F) Weight: 203 lbs 06/21/2018 Blood Pressure 1: 128/90 Code: 8480-6 Heart Rate 1: 80 bpm Respiratory Rate: 18 bpm SpO2: 98% Temperature: 36.7 (C) / 98.1 (F) We ight: 207 lbs 11/30/2017 Blood Pressure 1: 122/78 Code: 8480-6 BMI: 27.7 Code: 40141-8 Heart Rate 1: 76 bpm Height: 5'10" SpO2: 98% Temperature: 36.4 (C) / 97.5 (F) Weight: 193 lbs 08/04/2016 Blood Pressure 1: 122/78 Code: 8480-6 BMI: 28.1 Code: 26760-0 Heart Rate 1: 72 bpm Height: 5'10" Respiratory Rate: 22 bpm SpO2: 97% Tempera ture: 36.3 (C) / 97.3 (F) Weight: 196 lbs 03/28/2016 Blood Pressure 1: 136/74 Code: 8480-6 Heart Rate 1: 100 bpm Respiratory Rate: 24 bpm SpO2: 97% Temperature: 36.4 (C) / 97.6 (F) We ight: 198 lbs 02/04/2016 Blood Pressure 1: 112/70 Code: 8480-6 BMI: 27.6 Code: 26576-3 Heart Rate 1: 72 bpm Height: 5'11" Respiratory Rate: 20 bpm Temperature: 36 .6 (C) / 97.8 (F) Weight: 198 lbs 01/14/2016 Blood Pressure 1: 124/78 Code: 8480-6 BMI: 27.8 Code: 10669-6 Heart Rate 1: 76 bpm Height: 5'11" Respiratory Rate: 20 bpm Temperature: 36 .7 (C) / 98.0 (F) Weight: 199 lbs 11/09/2015 Blood Pressure 1: 124/78 Code: 8480-6 BMI: 27.2 Code: 80111-2 Heart Rate 1: 76 bpm Height: 5'11" Respiratory Rate: 20 bpm Temperature: 36 .7 (C) / 98.0 (F) Weight: 195 lbs 08/15/2015 Blood Pressure 1: 124/78 Code: 8480-6 Heart Rate 1: 82 bpm Respiratory Rate: 20 bpm SpO2: 97% Temperature: 35.9 (C) / 96.6 (F) We ight: 198 lbs 06/07/2015 Blood Pressure 1: 128/70 Code: 8480-6 BMI: 28.3 Code: 89544-8 Heart Rate 1: 76 bpm Height: 5'11" Respiratory Rate: 20 bpm Temperature: 36 .9 (C) / 98.4 (F) Weight: 203 lbs Functional Status No Functional Status data Reason For Visit Reason For Visit Effective Dates Notes sinus congestion 03/07/2019 sore throat 08/02/2018 sore throat 06/21/2018 sores 11/30/2017 cough 08/04/2016 cough 03/28/2016 follow up 02/04/2016 chest pain/pressure 01/14/2016 abdominal pain 11/09/2015 skin lesion 08/15/2015 ~generic 06/07/2015 New Patient Encounters Encounter Performer Location Codes Date ([id number]) OFFICE/OUTPATIENT VISIT EST Diagnosis: Sinusitis[ICD10: J32.9] Diagnosis: Acute suppurative otitis media of right ear[ICD10: H66.001] Justa FINK DO [facility] CPT-4: 36114 03/07/2019 ([id number]) OFFICE/OUTPATIENT VISIT EST Diagnosis: Acute pharyngitis, unspecified[ICD10: J02.9] Diagnosis: Acute tonsillitis, unspecified[ICD10: J03.90] Ross MELGARER [facility] CPT-4: 18563 08/02/2018 ([id number]) OFFICE/OUTPATIENT VISIT EST Diagnosis: Acute recurrent maxillary sinusitis[ICD10: J01.01] Diagnosis: Acute pharyngitis, unspecified[ICD10: J02.9] Mary FINK [facility] CPT-4: 41472 06/21/2018 ([id number]) OFFICE/OUTPATIENT VISIT EST Diagnosis: Cutaneous abscess of abdominal wall[ICD10: L02.211] Ross FINK [facility] CPT-4: 60905 11/30/2017 ([id number]) OFFICE/OUTPATIENT VISIT EST Diagnosis: Acute upper respiratory infection, unspecified[ICD10: J06.9] Diagnosis: Otitis media, unspecified, left ear[ICD10: H66.92] [facility]: 60431 08/04/2016 OFFICE/OUTPATIENT VISIT EST Diagnosis: Acute sinusitis, unspecified[ICD10: J01.90] Dacia Champion [facility]: 61839 03/28/2016 OFFICE/OUTPATIENT VISIT EST Diagnosis: Gastro-esophageal reflux disease without esophagitis[ICD10: K21.9] Ross FINK [facility] CPT-4: 68023 02/04/2016 ([id number]) OFFICE/OUTPATIENT VISIT EST Diagnosis: Chest pain, unspecified[ICD10: R07.9] Diagnosis: Gastro-esophageal reflux disease without esophagitis[ICD10: K21.9] Diagnosis: COUGH[ICD10: R05] Ross FINK [facility] CPT-4: 98349 01/14/2016 OFFICE/OUTPATIENT VISIT EST Diagnosis: Epigastric pain[ICD10: R10.13] Diagnosis: Diarrhea, unspecified[ICD10: R19.7] Diagnosis: Other specified abnormal findings of blood chemistry[ICD10: R79.89] Dacia Champion [facility] CPT-[facility]: 77570 11/09/2015 ([id number]) OFFICE/OUTPATIENT VISIT EST Diagnosis: Cutaneous abscess, unspecified[ICD10: L02.91] Tammy Martinez ROSS Catalan [facility] CPT-4: 51543 08/15/2015 OFFICE/OUTPATIENT VISIT NEW Diagnosis: Psoriasis, unspecified[ICD10: L40.9] Diagnosis: Gastro-esophageal reflux disease without esophagitis[ICD10: K21.9] Diagnosis: Headache[ICD10: R51] Diagnosis: Cervicalgia[ICD10: M54.2] Ross Catalan DONNA GILL [employer] CPT-4: 94549 06/07/2015 Plan of Care Planned Activity Notes Codes Status Date Visit Diagnosis Plan: Sinusitis Discussion: augmentin prescribed to cover for sinus infection and ear infection. push fluids and instructed to use tylenol/ibuprofen prn pain. call or rtc with new or worsening symptoms. ICD-9 : 473.9 ICD-10 : J32.9 03/07/2019 Appointment: Justa Stevenson [address] [place], [place] [id number] AC[facility] 03/07/2019 Visit Plan: Supportive [...] Rest, Fluids... 08/02/2018 Appointment: [facility] [phone] [id number] [facility] 08/02/2018 Visit Diagnosis Plan: Acute recurrent maxillary sinusi tis Discussion: Strep A- negative. Treating for sinusitis. Augmentin- take as directed. Sinus rinses encouraged. Salt water gargles. Fluids, rest, Tylenol or Motrin for pain and fever. Make annual wellness visit when checking out. Patient states understanding. ICD-9 : 461.0 ICD-10 : J01.01 06/21/2018 Appointment: Mary Elder [address] ACUTE ILLNESS 06/21/2018 Visit Diagnosis Plan: Cutaneous abscess of abdominal w all Discussion: Some bloody discharge expressed but no pus--his got old blood and pus out last night Warm compresses and clindamycin and notify if worsens or persists ICD-9 : 682.2 ICD-10 : L02.211 11/30/2017 Appointment: Ross Fink WPtel: [address] [place] [address] ACUTE ILLNESS 11/30/2017 Patient Education: Patient Medication Summary Completed 11/30/2017 Visit Diagnosis Plan: Acute upper respiratory infectio n, unspecified Discussion: Continue OTC meds and home remedies Rxs as above Notifiy prescriber of humira of treatment plan Rest, fluids, vicks, humidifier, etc Follow up PRN ICD-9 : 465.9 ICD-10 : J06.9 08/04/2016 Appointment: Tammy Martinez [address] [place] [address] ACUTE ILLNESS 08/04/2016 Patient Education: Patient Medication Summary Completed 08/04/2016 Visit Plan: ERx Augmentin and Medrol Dos pack Has Mucinex D at home Nasal saline, humidified air, Tylenol/ibuprofen prn Discussed s/s of worsening, go to UC/QC over weekend if needed 03/28/2016 Appointment: Dacia Champion WPtel: [address] [place] [address] ACUTE ILLNESS 03/28/2016 Patient Education: Patient Medication Summary Completed 03/28/2016 Visit Plan: Finish omeprazole at 40mg po BID for full month then decrease to 40mg daily for 1month then if no return of symptoms will decrease to 20mg daily for 1month then fwup 02/04/2016 Appointment: Ross Fink WPtel: [address] [place] [address] 01/30 confirmed`sl FOLLOW UP 02/04/2016 Patient Education: Patient Medication Summary Completed 02/04/2016 Patient Education: [facility] - Prilosec - 1st Mo Free - Odd Torsten Delarosa Completed 02/04/2016 Visit Plan: No caffeine, no nicotine, no alcohol, no mints, no late meals, elevate HOB 30 degrees Omeprazole 40mg po BID Check CXR and EKG 01/14/2016 Appointment: Ross Fink WPtel: [address] [place], [place] [phone] ACUTE ILLNESS 01/14/2016 Patient Education: Patient Medication Summary Completed 01/14/2016 Care Plan: CHEST X-RAY 2VW FRONTAL&LATL LOINC : 03443-6 Pending 01/14/2016 Appointment: Ross Fink WPtel: [address] [place] [address] 11/[address] sterling [place] visit~sl RESCHEDULED 0 11/21/2015 Care Plan: ECHO EXAM OF ABDOMEN LOINC : 54644-8 Pending 11/10/2015 Visit Plan: Declines medication for diar beverley Declines stool studies CMP, CBC, TSH, Lipids (history of hyperlipidemia) GB U/S RTC/ER for worsening Discussed correlation with high fat foods, avoid. 11/09/2015 Appointment: Dacia Champion WPtel: [address] [place] [address] ACUTE ILLNESS 11/09/2015 Patient Education: Patient Medication Summary Completed 11/09/2015 Appointment: Tammy Martinez [address] [place], [place] [id number] [place] Called at 9:20am.Patients rash went away over night. feeling better.-sp ACUTE ILLNESS 10/31/2015 Appointment: Tammy Martinez [address] [place], [place] [id number] [place] called back within minutes of scheduling to notify he could not make the appointment time. Per Dr Fink, this is a forgiven since he called back immediately to cancel the appointment.~lb RESCHEDULED 10/30/2015 Visit Plan: Rxs as above until culture r eceived Reviewed wound care Will need follow up if not improving as expected 08/15/2015 Appointment: Tammy Martinez [address] [place], [place] [id number] ACUTE ILLNESS 08/15/2015 Patient Education: Patient Medication [...] well 06/07/2015 Appointment: Ross Fink WPtel: [id number] [place] 06/05-SP 06/06 Confirmed~sl ACUTE ILLNESS 06/06 Patient Education: Patient Medication Summary Completed 06/07/2015 Instructions Comment . Supportive care. Rest, Fluids, Tyleno l/Motrin prn fever or bodyaches. Notify if worsening symptoms.New toothebrush in 5 days . ERx Augmentin and Medrol Adarshtorstenflorecita Has Mucinex D at home Nasal saline, [...]
--- OUTSIDE RECORDS SUMMARY | 2019-10-13 06:56 | XMS REPORT | CCD ---
Author Author Michael Fink D.O. 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 Name Role Phone Ross Fink D.O., PP Unavailable CCM Unavailable Summary Purpose Interface Exchange Insurance Providers Payer name Policy type / Coverage type Covered democrat ID Effective Begin Date Effective End Date [facility] Commercial Insurance [id number] Unkno wn Family history Father Diagnosis Age At Onset Suicide attempt Unknown Grandfather Diagnosis Age At Onset Myocardial infarction Unknown sepsis Unknown Social History Social History Element Codes Description Effective Dates Marital status Unknown 06/07/2015 Employment Unknown Currently employed [employer] [address] 06/07/[address]: 0978480 Former smoker 06/07/[address]: 824922 Currently drinks alcohol 06/06 Has the patient [...] Fill Instructions Zithromax 500 mg tablet RxNorm: 779425 1 Tablet(s) Oral QD 05/09/19 20 05/14/2019 Active Medrol (Anders) 4 mg tablets in a dose pack RxNorm: 178131 Tablet(s) Oral take as directed 03/14/2019 03/14/2019 Inactive Medrol (Anders) 4 mg tablets in a dose pack RxNorm: 957783 Tablet(s) Oral take as directed 03/14/2019 03/13/2019 Inactive Augmentin 875 mg-125 mg tablet RxNorm: 433288 1 Tablet(s) Oral two times a day 03/07/2019 03/17/2019 Inactive Zithromax 500 mg tablet RxNorm: 656369 1 Tablet(s) PO QD 08/02/2018 0 08/08/2018 Inactive omeprazole 40 mg capsule,delayed release RxNorm: 829650 1 Capsu le(s) PO QD 06/23/2018 03/06/2019 Inactive omeprazole 40 mg capsule,delayed release RxNorm: 230547 1 Capsu le(s) PO QD 06/22/2018 06/22/2018 Inactive Augmentin 875 mg-125 mg tablet RxNorm: 057138 1 Tablet(s) PO BID 06/30/2018 Inactive clindamycin HCl 300 mg capsule RxNorm: 091625 2 Capsule(s) PO TID 0 11/30/2017 12/09/2017 Inactive azithromycin 250 mg tablet RxNorm: 660806 2 Tablet(s) P O on day one then 1 tab on days 2-5 08/04/2016 08/03/2016 Inactive prednisone 20 mg tablet RxNorm: 460685 1 Tablet(s) PO QD 08/04/2016 0 08/08/2016 Inactive Augmentin 875 mg-125 mg tablet RxNorm: 875405 1 Tablet(s) PO BID 04/06/2016 Inactive Medrol (Anders) 4 mg tablets in a dose pack RxNorm: 220357 as directed Tablet(s) PO QD 03/28/2016 04/01/2016 Inactive omeprazole 40 mg capsule,delayed release RxNorm: 887428 1 Capsu le(s) PO QD 02/04/2016 08/03/2016 Inactive omeprazole 40 mg capsule,delayed release RxNorm: 343809 1 Capsu le(s) PO BID 01/14/2016 02/03/2016 Inactive clindamycin 300 mg capsule RxNorm: 731717 1 Capsule(s) PO QID 08/1408/24/2015 Inactive Bactroban 2 % topical ointment RxNorm: 651527 Apply top ically to affected area twice daily for 10 days 08/15/2015 11/08/2015 Inactive omeprazole 40 mg capsule,delayed release RxNorm: 494358 1 Capsu le(s) PO QHS 06/07/2015 08/14/2015 Inactive Humira 40 mg/0.8 mL subcutaneous syringe kit RxNorm: 046579 Milliliter(s) SQ every 2 weeks (Dr Elliott) No Start Date Active omeprazole 40 mg capsule,delayed release RxNorm: 692921 1 Capsu le(s) PO QD No Start Date 01/13/2016 Inactive Medication Administered No Medication Administered data Immunizations No Immunization data Results Observation Observation Code Item Item Code Result Date S [facility] Location IRON 22365 Iron 136 ug/dL 11/15/2015 Unknown FERRITIN 28519 FERRITIN 269 ng/mL 11/15/2015 Unknown COMPREHENSIVE METABOLIC 54241 AST 19 U/L 2015 Unknown COMPREHENSIVE METABOLIC 35701 ALT 26 U/L 2015 Unknown COMPREHENSIVE METABOLIC 65588 BUN 12 mg/dL 2015 Unknown COMPREHENSIVE METABOLIC 38179 ALBUMIN 4.3 g/dL 2015 Unknown COMPREHENSIVE METABOLIC 42910 CHLORIDE 103 mmol/L 11/08 Unknown COMPREHENSIVE METABOLIC 29642 Bili Total 0.8 mg/dL 11/08 Unknown COMPREHENSIVE METABOLIC 77676 ALK PHOS 56 U/L 2015 Unknown COMPREHENSIVE METABOLIC 63558 SODIUM 135 mmol/L 11/08 Unknown COMPREHENSIVE METABOLIC 72299 CREATININE 1.08 mg/dL 08/2015 Unknown COMPREHENSIVE METABOLIC 30482 CALCIUM 9.6 mg/dL 2015 Unknown COMPREHENSIVE METABOLIC 61646 POTASSIUM 4.2 mmol/L 11/08 Unknown COMPREHENSIVE METABOLIC 58260 Total Protein 7.4 g/dL Unknown COMPREHENSIVE METABOLIC 57369 Glucose 82 mg/dL 2015 Unknown COMPREHENSIVE METABOLIC 59926 Bicarbonate 23 mmol/L 08/2015 Unknown COMPREHENSIVE METABOLIC 90244 AGAP 9 mmol/L 2015 Unknown [facility] 43851 Cholesterol 176 mg/dL 11/09/2015 Unkno wn L[facility] GROUP 91583 Triglyceride 81 mg/dL 11/09/2015 Unkn own [facility] 70700 HDL CHOLESTEROL 36 mg/dL 11/09/2015 U nknown [facility] 37056 Chol/HDL Ratio 4.89 ratio 11/09/2015 U nknown L[facility] GROUP 19976 NON-HDL Chol 140 mg/dL 11/09/2015 Unkn own [facility] GROUP 91816 LDL Cholesterol 124 mg/dL 11/09/2015 U nknown GFR CALC 9559810 GFR Non Afr Amr >60 mL/min 11/09/2015 Un known GFR CALC 1111571 GFR Afr Amr >60 mL/min 11/09/2015 Unknow n FREE T4 66235 T4 Free 1.58 ng/dL 11/09/2015 Unknown THYROID STIMULATING HORMONE 15054 TSH 1.726 uIU/mL 11/09/2015 Unknown COMPLETE BLOOD COUNT 7226285 WBC 6.2 10e9/L 11/09/19 16 Unknown COMPLETE BLOOD COUNT 3347912 RBC 5.59 10e12/L 2015 Unknown COMPLETE BLOOD COUNT [id number] HEMOGLOBIN 18.1 g/dL 11/09/19 16 Unknown COMPLETE BLOOD COUNT 4487432 HEMATOCRIT 50.1 % 11/09/19 16 Unknown COMPLETE BLOOD COUNT 9853382 MCV 89.6 fL 6 Unknown COMPLETE BLOOD COUNT 3469556 MCH 32.4 pg 6 Unknown COMPLETE BLOOD COUNT 1251005 MCHC 36.1 g/dL 6 Unknown COMPLETE BLOOD COUNT [id number] PLATELET COUNT 269 10e9/L 08/2015 Unknown COMPLETE BLOOD COUNT 5327620 Mean Plt Volume 10.8 fL 08/2015 Unknown COMPLETE BLOOD COUNT 3342246 Neut Auto 47.0 % 6 Unknown COMPLETE BLOOD COUNT 8274322 Lymph Auto 33.2 % 11/09/19 16 Unknown COMPLETE BLOOD COUNT [id number] Clinton Auto 16.5 % 6 Unknown COMPLETE BLOOD COUNT 3437079 RDW 13.2 % 6 Unknown COMPLETE BLOOD COUNT 2626897 Eos Auto 2.8 % 6 Unknown COMPLETE BLOOD COUNT 2544740 Baso Auto 0.5 % 6 Unknown COMPLETE BLOOD COUNT 1669615 Neutrophil Abs 2.91 10e9/L Unknown COMPLETE BLOOD COUNT [id number] Lymphocyte Abs 2.06 10e9/L Unknown COMPLETE BLOOD COUNT [id number] Monocyte Abs 1.02 10e9/L 08/2015 Unknown COMPLETE BLOOD COUNT [id number] Eosinophil Abs 0.17 10e9/L Unknown COMPLETE BLOOD COUNT [id number] RDW-SD 42.9 fL 6 Unknown COMPLETE BLOOD COUNT [id number] Basophil Abs 0.03 10e9/L 08/2015 Unknown Procedures Procedure Codes Date STREP A ASSAY W/OPTIC CPT-4: 06119 08/02/2018 STREP A ASSAY W/OPTIC CPT-4: 53654 06/21/2018 ASSAY OF IRON CPT-4: 99083 11/09/2015 ASSAY OF FERRITIN CPT-4: 66093 11/09/2015 DRAINAGE OF SKIN ABSCESS CPT-4: 58502 08/15/2015 AEROBIC WOUND CULTURE & STN CPT-4: 81982 08/15/2015 Vital Signs Date Vital 05/09/2019 Blood [...] 1: 126/82 Code: 8480-6 BMI: 29.1 Code: 11933-0 Heart Rate 1: 72 bpm Height: 5'10" Respiratory Rate: 20 bpm SpO2: 97% Tempera ture: 36.8 (C) / 98.3 (F) Weight: 203 lbs 06/21/2018 Blood Pressure 1: 128/90 Code: 8480-6 Heart Rate 1: 80 bpm Respiratory Rate: 18 bpm SpO2: 98% Temperature: 36.7 (C) / 98.1 (F) We ight: 207 lbs 11/30/2017 Blood Pressure 1: 122/78 Code: 8480-6 BMI: 27.7 Code: 75888-6 Heart Rate 1: 76 bpm Height: 5'10" SpO2: 98% Temperature: 36.4 (C) / 97.5 (F) Weight: 193 lbs 08/04/2016 Blood Pressure 1: 122/78 Code: 8480-6 BMI: 28.1 Code: 64287-3 Heart Rate 1: 72 bpm Height: 5'10" Respiratory Rate: 22 bpm SpO2: 97% Tempera ture: 36.3 (C) / 97.3 (F) Weight: 196 lbs 03/28/2016 Blood Pressure 1: 136/74 Code: 8480-6 Heart Rate 1: 100 bpm Respiratory Rate: 24 bpm SpO2: 97% Temperature: 36.4 (C) / 97.6 (F) We ight: 198 lbs 02/04/2016 Blood Pressure 1: 112/70 Code: 8480-6 BMI: 27.6 Code: 65808-0 Heart Rate 1: 72 bpm Height: 5'11" Respiratory Rate: 20 bpm Temperature: 36 .6 (C) / 97.8 (F) Weight: 198 lbs 01/14/2016 Blood Pressure 1: 124/78 Code: 8480-6 BMI: 27.8 Code: 96311-2 Heart Rate 1: 76 bpm Height: 5'11" Respiratory Rate: 20 bpm Temperature: 36 .7 (C) / 98.0 (F) Weight: 199 lbs 11/09/2015 Blood Pressure 1: 124/78 Code: 8480-6 BMI: 27.2 Code: 97977-7 Heart Rate 1: 76 bpm Height: 5'11" Respiratory Rate: 20 bpm Temperature: 36 .7 (C) / 98.0 (F) Weight: 195 lbs 08/15/2015 Blood Pressure 1: 124/78 Code: 8480-6 Heart Rate 1: 82 bpm Respiratory Rate: 20 bpm SpO2: 97% Temperature: 35.9 (C) / 96.6 (F) We ight: 198 lbs 06/07/2015 Blood Pressure 1: 128/70 Code: 8480-6 BMI: 28.3 Code: 61164-0 Heart Rate 1: 76 bpm Height: 5'11" [...] Patient Encounters Encounter Performer Location Codes Date (79451) OFFICE/OUTPATIENT VISIT EST Diagnosis: Acute tonsillitis, unspecified[ICD10: J03.90] Justa FINK [facility] CPT-4: 45389 05/09/2019 ([id number]) OFFICE/OUTPATIENT VISIT EST Diagnosis: Sinusitis[ICD10: J32.9] Diagnosis: Acute suppurative otitis media of right ear[ICD10: H66.001] Justa FINK [facility] CPT-4: 12786 03/07/2019 ([id number]) OFFICE/OUTPATIENT VISIT EST Diagnosis: Acute pharyngitis, unspecified[ICD10: J02.9] Diagnosis: Acute tonsillitis, unspecified[ICD10: J03.90] Ross FINK [facility] CPT-4: 85798 08/02/2018 ([id number]) OFFICE/OUTPATIENT VISIT EST Diagnosis: Acute recurrent maxillary sinusitis[ICD10: J01.01] Diagnosis: Acute pharyngitis, unspecified[ICD10: J02.9] Mary Elder ROSS FINK [facility] CPT-4: 79702 06/21/2018 ([id number]) OFFICE/OUTPATIENT VISIT EST Diagnosis: Cutaneous abscess of abdominal wall[ICD10: L02.211] Ross FINK [facility] CPT-4: 31450 11/30/2017 ([id number]) OFFICE/OUTPATIENT VISIT EST Diagnosis: Acute upper respiratory infection, unspecified[ICD10: J06.9] Diagnosis: Otitis media, unspecified, left ear[ICD10: H66.92] [facility] 22011 08/04/2016 OFFICE/OUTPATIENT VISIT EST Diagnosis: Acute sinusitis, unspecified[ICD10: J01.90] Dacia Champion ROSS FINK [facility] CPT-4: 97386 03/28/2016 OFFICE/OUTPATIENT VISIT EST Diagnosis: Gastro-esophageal reflux disease without esophagitis[ICD10: K21.9] Ross FINK [facility] CPT-4: 85209 02/04/2016 ([id number]) OFFICE/OUTPATIENT VISIT EST Diagnosis: Chest pain, unspecified[ICD10: R07.9] Diagnosis: Gastro-esophageal reflux disease without esophagitis[ICD10: K21.9] Diagnosis: COUGH[ICD10: R05] Ross MELGAR [employer] [facility] CPT-4: 52641 01/14/2016 OFFICE/OUTPATIENT VISIT EST Diagnosis: Epigastric pain[ICD10: R10.13] Diagnosis: Diarrhea, unspecified[ICD10: R19.7] Diagnosis: Other specified abnormal findings of blood chemistry[ICD10: R79.89] Dacia ZhangSegundo ROSS MELG[facility] [employer] [facility] CPT-4: 84311 11/09/2015 ([id number]) OFFICE/OUTPATIENT VISIT EST Diagnosis: Cutaneous abscess, unspecified[ICD10: L02.91] Tammy Martinez [facility] [employer] [facility] CPT-4: 55581 08/15/2015 OFFICE/OUTPATIENT VISIT NEW Diagnosis: Psoriasis, unspecified[ICD10: L40.9] Diagnosis: Gastro-esophageal reflux disease without esophagitis[ICD10: K21.9] Diagnosis: Headache[ICD10: R51] Diagnosis: Cervicalgia[ICD10: M54.2] Ross Melgar [facility] [employer] [facility] [employer] [facility] CPT-4: 17547 06/07/2015 Plan of Care Planned Activity Notes [...] ICD-10 : J32.9 03/07/2019 Appointment: Justa Stevenson [address] [place], [place] [id number] ACUTE ILLNESS 03/07/2019 Visit Plan: Supportive care. [...] Rest, Fluids... 08/02/2018 Appointment: Ross Fink WPtel: [address] [place] [address] ACUTE ILLNESS 08/02/2018 Visit Diagnosis Plan: Acute recurrent maxillary sinusi tis Discussion: Strep A- negative. Treating for sinusitis. Augmentin- take as directed. Sinus rinses encouraged. Salt water gargles. Fluids, rest, Tylenol or Motrin for pain and fever. Make annual wellness visit when checking out. Patient states understanding. ICD-9 : 461.0 ICD-10 : J01.01 06/21/2018 Appointment: Mary Elder [address] [place] [address] ACUTE ILLNESS 06/21/2018 Visit Diagnosis Plan: Cutaneous abscess of abdominal w all Discussion: Some bloody discharge expressed but no pus--his got old blood and pus out last night Warm compresses and clindamycin and notify if worsens or persists ICD-9 : 682.2 ICD-10 : L02.211 11/30/2017 Appointment: Ross Fink WPtel: [address] [place] [address] ACUTE ILLNESS 11/30/2017 Patient Education: Patient Medication Summary Completed 11/30/2017 Visit Diagnosis Plan: Acute upper respiratory infectio n, unspecified Discussion: Continue OTC meds and home remedies Rxs as above Notifiy prescriber of humira of treatment plan Rest, fluids, vicks, humidifier, etc Follow up PRN ICD-9 : 465.9 ICD-10 : J06.9 08/04/2016 Appointment: Tammy Martinez [address] [place] [address] ACUTE ILLNESS 08/04/2016 Patient Education: Patient Medication Summary Completed 08/04/2016 Visit Plan: ERx Augmentin and Medrol Dos pack Has Mucinex D at home Nasal saline, humidified air, Tylenol/ibuprofen prn Discussed s/s of worsening, go to UC/QC over weekend if needed 03/28/2016 Appointment: Dacia Champoin WPtel: [address] [place] [address] ACUTE ILLNESS 03/28/2016 Patient Education: Patient Medication Summary Completed 03/28/2016 Visit Plan: Finish omeprazole at 40mg po BID for full month then decrease to 40mg daily for 1month then if no return of symptoms will decrease to 20mg daily for 1month then fwup 02/04/2016 Appointment: Ross Fink WPtel: [address] [place] [address] 01/30 confirmed`sl FOLLOW UP 02/04/2016 Patient Education: Patient Medication Summary Completed 02/04/2016 [facility] Education: [facility]st Mo Free - Odd Torsten Delarosa Completed 02/04/2016 Visit Plan: No caffeine, no nicotine, no alcohol, no mints, no late meals, elevate HOB 30 degrees Omeprazole 40mg po BID Check CXR and EKG 01/14/2016 Appointment: Ross Fink WPtel: [address] [place] [address] ACUTE ILLNESS 01/14/2016 Patient Education: Patient Medication Summary Completed 01/14/2016 Care Plan: CHEST X-RAY 2VW FRONTAL&LATL LOINC : 65737-0 Pending 01/14/2016 Appointment: Ross Fink WPtel: [address] [place] [address] 11/[address] sterling [place] visit~sl RESCHEDULED 0 11/21/2015 Care Plan: ECHO EXAM OF ABDOMEN LOINC : 89846-7 Pending 11/10/2015 Visit Plan: Declines medication for diar beverley Declines stool studies CMP, CBC, TSH, Lipids (history of hyperlipidemia) GB U/S RTC/ER for worsening Discussed correlation with high fat foods, avoid. 11/09/2015 Appointment: Dacia Champion WPtel: [address] [facility] ACUTE ILLNESS 11/09/2015 Patient Education: Patient Medication Summary Completed 11/09/2015 Appointment: Tammy Martinez [address] [facility] Called at 9:20am.Patients rash went away over night. feeling better.-sp ACUTE ILLNESS 10/31/2015 Appointment: Tammy Martinez [address] [facility] US called back within minutes of scheduling to notify he could not make the appointment time. Per Dr Fink, this is a forgiven since he called back immediately to cancel the appointment.~lb RESCHEDULED 10/30/2015 Visit Plan: Rxs as above until culture r eceived Reviewed wound care Will need follow up if not improving as expected 08/15/2015 Appointment: Tammy Martinez [address] [place], [place] [id number] ACUTE ILLNESS 08/15/2015 Patient Education: Patient Medication [...] well 06/07/2015 [facility]ment[facility] [address] [facility] 06/05-SP 06/06 Confirmed~sl ACUTE ILLNESS 06/06 [...]
--- OUTSIDE RECORDS SUMMARY | 2019-10-13 06:56 | XMS REPORT | CCD ---
Author Author Michael Fink D.O. Organization [facility] Address [address] [place] [address] Phone Care Team Providers Care Airline Captain Name Role Phone Ross Fink D.O., PP Unavailable CCM Unavailable Summary Purpose Interface Exchange Insurance Providers Payer name Policy type / Coverage type Covered alliance party ID Effective Begin Date Effective End Date [facility] Commercial Insurance [id number] Unkno wn Family history Father Diagnosis Age At Onset Suicide attempt Unknown Grandfather Diagnosis Age At Onset Myocardial infarction Unknown sepsis Unknown Social History Social History Element Codes Description Effective Dates Marital status Unknown 06/07/2015 Employment Unknown Currently employed [employer] 06/07/[address]: 9550689 Former smoker 06/07/[address]: 231115 Currently drinks alcohol 06/06 Has the patient [...] Fill Instructions Zithromax 500 mg tablet RxNorm: 687217 1 Tablet(s) Oral QD 05/09/19 20 05/14/2019 Active Medrol (Anders) 4 mg tablets in a dose pack RxNorm: 425628 Tablet(s) Oral take as directed 03/14/2019 03/14/2019 Inactive Medrol (Anders) 4 mg tablets in a dose pack RxNorm: 913446 Tablet(s) Oral take as directed 03/14/2019 03/13/2019 Inactive Augmentin 875 mg-125 mg tablet RxNorm: 965015 1 Tablet(s) Oral two times a day 03/07/2019 03/17/2019 Inactive Zithromax 500 mg tablet RxNorm: 700721 1 Tablet(s) PO QD 08/02/2018 0 08/08/2018 Inactive omeprazole 40 mg capsule,delayed release RxNorm: 580101 1 Capsu le(s) PO QD 06/23/2018 03/06/2019 Inactive omeprazole 40 mg capsule,delayed release RxNorm: 160916 1 Capsu le(s) PO QD 06/22/2018 06/22/2018 Inactive Augmentin 875 mg-125 mg tablet RxNorm: 819396 1 Tablet(s) PO BID 06/30/2018 Inactive clindamycin HCl 300 mg capsule RxNorm: 936780 2 Capsule(s) PO TID 0 11/30/2017 12/09/2017 Inactive azithromycin 250 mg tablet RxNorm: 886921 2 Tablet(s) P O on day one then 1 tab on days 2-5 08/04/2016 08/03/2016 Inactive prednisone 20 mg tablet RxNorm: 852136 1 Tablet(s) PO QD 08/04/2016 0 08/08/2016 Inactive Augmentin 875 mg-125 mg tablet RxNorm: 007180 1 Tablet(s) PO BID 04/06/2016 Inactive Medrol (Anders) 4 mg tablets in a dose pack RxNorm: 974015 as directed Tablet(s) PO QD 03/28/2016 04/01/2016 Inactive omeprazole 40 mg capsule,delayed release RxNorm: 436615 1 Capsu le(s) PO QD 02/04/2016 08/03/2016 Inactive omeprazole 40 mg capsule,delayed release RxNorm: 451514 1 Capsu le(s) PO BID 01/14/2016 02/03/2016 Inactive clindamycin 300 mg capsule RxNorm: 945432 1 Capsule(s) PO QID 08/1408/24/2015 Inactive Bactroban 2 % topical ointment RxNorm: 687972 Apply top ically to affected area twice daily for 10 days 08/15/2015 11/08/2015 Inactive omeprazole 40 mg capsule,delayed release RxNorm: 885695 1 Capsu le(s) PO QHS 06/07/2015 08/14/2015 Inactive Humira 40 mg/0.8 mL subcutaneous syringe kit RxNorm: 433145 Milliliter(s) SQ every 2 weeks (Dr Elliott) No Start Date Active omeprazole 40 mg capsule,delayed release RxNorm: 991997 1 Capsu le(s) PO QD No Start Date 01/13/2016 Inactive Medication Administered No Medication Administered data Immunizations No Immunization data Results Observation Observation Code Item Item Code Result Date S [facility] Location IRON 04099 Iron 136 ug/dL 11/15/2015 Unknown FERRITIN 28270 FERRITIN 269 ng/mL 11/15/2015 Unknown COMPREHENSIVE METABOLIC 56733 AST 19 U/L 2015 Unknown COMPREHENSIVE METABOLIC 28351 ALT 26 U/L 2015 Unknown COMPREHENSIVE METABOLIC 43770 BUN 12 mg/dL 2015 Unknown COMPREHENSIVE METABOLIC 80677 ALBUMIN 4.3 g/dL 2015 Unknown COMPREHENSIVE METABOLIC 64219 CHLORIDE 103 mmol/L 11/08 Unknown COMPREHENSIVE METABOLIC 58696 Bili Total 0.8 mg/dL 11/08 Unknown COMPREHENSIVE METABOLIC 72716 ALK PHOS 56 U/L 2015 Unknown COMPREHENSIVE METABOLIC 82739 SODIUM 135 mmol/L 11/08 Unknown COMPREHENSIVE METABOLIC 69420 CREATININE 1.08 mg/dL 08/2015 Unknown COMPREHENSIVE METABOLIC 72694 CALCIUM 9.6 mg/dL 2015 Unknown COMPREHENSIVE METABOLIC 74591 POTASSIUM 4.2 mmol/L 11/08 Unknown COMPREHENSIVE METABOLIC 08357 Total Protein 7.4 g/dL Unknown COMPREHENSIVE METABOLIC 93639 Glucose 82 mg/dL 2015 Unknown COMPREHENSIVE METABOLIC 56127 Bicarbonate 23 mmol/L 08/2015 Unknown COMPREHENSIVE METABOLIC 29093 AGAP 9 mmol/L 2015 Unknown LIP[facility] GROUP 85884 Cholesterol 176 mg/dL 11/09/2015 Unkno wn LIPID GROUP 44738 Triglyceride 81 mg/dL 11/09/2015 Unkn own LIPID GROUP 15958 HDL CHOLESTEROL 36 mg/dL 11/09/2015 U nknown LIPID GROUP 39857 Chol/HDL Ratio 4.89 ratio 11/09/2015 U nknown LIPID GROUP 78439 NON-HDL Chol 140 mg/dL 11/09/2015 Unkn own LIPID GROUP 78881 LDL Cholesterol 124 mg/dL 11/09/2015 U nknown GFR CALC 3517551 GFR Non Afr Amr >60 mL/min 11/09/2015 Un known GFR CALC [id number] GFR Afr Amr >60 mL/min 11/09/2015 Unknow n FREE T4 20527 T4 Free 1.58 ng/dL 11/09/2015 Unknown THYROID STIMULATING HORMONE 89315 TSH 1.726 uIU/mL 11/09/2015 Unknown COMPLETE BLOOD COUNT 2477441 WBC 6.2 10e9/L 11/09/19 16 Unknown COMPLETE BLOOD COUNT 1207144 RBC 5.59 10e12/L 2015 Unknown COMPLETE BLOOD COUNT 8071383 HEMOGLOBIN 18.1 g/dL 11/09/19 16 Unknown COMPLETE BLOOD COUNT 8613786 HEMATOCRIT 50.1 % 11/09/19 16 Unknown COMPLETE BLOOD COUNT 2204978 MCV 89.6 fL 6 Unknown COMPLETE BLOOD COUNT 0481885 MCH 32.4 pg 6 Unknown COMPLETE BLOOD COUNT 0520717 MCHC 36.1 g/dL 6 Unknown COMPLETE BLOOD COUNT 7743312 PLATELET COUNT 269 10e9/L 08/2015 Unknown COMPLETE BLOOD COUNT 7300191 Mean Plt Volume 10.8 fL 08/2015 Unknown COMPLETE BLOOD COUNT 9280474 Neut Auto 47.0 % 6 Unknown COMPLETE BLOOD COUNT 4465724 Lymph Auto 33.2 % 11/09/19 16 Unknown COMPLETE BLOOD COUNT 3465149 [place]on Auto 16.5 % 6 Unknown COMPLETE BLOOD COUNT 2704400 RDW 13.2 % 6 Unknown COMPLETE BLOOD COUNT 1718479 Eos Auto 2.8 % 6 Unknown COMPLETE BLOOD COUNT [id number] Baso Auto 0.5 % 6 Unknown COMPLETE BLOOD COUNT 1498923 Neutrophil Abs 2.91 10e9/L Unknown COMPLETE BLOOD COUNT 4476569 Lymphocyte Abs 2.06 10e9/L Unknown COMPLETE BLOOD COUNT 1007113 Monocyte Abs 1.02 10e9/L 08/2015 Unknown COMPLETE BLOOD COUNT [id number] Eosinophil Abs 0.17 10e9/L Unknown COMPLETE BLOOD COUNT 1757821 RDW-SD 42.9 fL 6 Unknown COMPLETE BLOOD COUNT [id number] Basophil Abs 0.03 10e9/L 08/2015 Unknown Procedures Procedure Codes Date STREP A ASSAY W/OPTIC CPT-4: 08752 08/02/2018 STREP A ASSAY W/OPTIC CPT-4: 49790 06/21/2018 ASSAY OF IRON CPT-4: 87295 11/09/2015 ASSAY OF FERRITIN CPT-4: 83283 11/09/2015 DRAINAGE OF SKIN ABSCESS CPT-4: 62750 08/15/2015 AEROBIC WOUND CULTURE & STN CPT-4: 51668 08/15/2015 Vital Signs Date Vital 05/09/2019 Blood [...] 1: 126/82 Code: 8480-6 BMI: 29.1 Code: 13684-3 Heart Rate 1: 72 bpm Height: 5'10" Respiratory Rate: 20 bpm SpO2: 97% Tempera ture: 36.8 (C) / 98.3 (F) Weight: 203 lbs 06/21/2018 Blood Pressure 1: 128/90 Code: 8480-6 Heart Rate 1: 80 bpm Respiratory Rate: 18 bpm SpO2: 98% Temperature: 36.7 (C) / 98.1 (F) We ight: 207 lbs 11/30/2017 Blood Pressure 1: 122/78 Code: 8480-6 BMI: 27.7 Code: 19340-6 Heart Rate 1: 76 bpm Height: 5'10" SpO2: 98% Temperature: 36.4 (C) / 97.5 (F) Weight: 193 lbs 08/04/2016 Blood Pressure 1: 122/78 Code: 8480-6 BMI: 28.1 Code: 42214-2 Heart Rate 1: 72 bpm Height: 5'10" Respiratory Rate: 22 bpm SpO2: 97% Tempera ture: 36.3 (C) / 97.3 (F) Weight: 196 lbs 03/28/2016 Blood Pressure 1: 136/74 Code: 8480-6 Heart Rate 1: 100 bpm Respiratory Rate: 24 bpm SpO2: 97% Temperature: 36.4 (C) / 97.6 (F) We ight: 198 lbs 02/04/2016 Blood Pressure 1: 112/70 Code: 8480-6 BMI: 27.6 Code: 87138-7 Heart Rate 1: 72 bpm Height: 5'11" Respiratory Rate: 20 bpm Temperature: 36 .6 (C) / 97.8 (F) Weight: 198 lbs 01/14/2016 Blood Pressure 1: 124/78 Code: 8480-6 BMI: 27.8 Code: 36229-6 Heart Rate 1: 76 bpm Height: 5'11" Respiratory Rate: 20 bpm Temperature: 36 .7 (C) / 98.0 (F) Weight: 199 lbs 11/09/2015 Blood Pressure 1: 124/78 Code: 8480-6 BMI: 27.2 Code: 11209-4 Heart Rate 1: 76 bpm Height: 5'11" Respiratory Rate: 20 bpm Temperature: 36 .7 (C) / 98.0 (F) Weight: 195 lbs 08/15/2015 Blood Pressure 1: 124/78 Code: 8480-6 Heart Rate 1: 82 bpm Respiratory Rate: 20 bpm SpO2: 97% Temperature: 35.9 (C) / 96.6 (F) We ight: 198 lbs 06/07/2015 Blood Pressure 1: 128/70 Code: 8480-6 BMI: 28.3 Code: 07748-7 Heart Rate 1: 76 bpm Height: 5'11" [...] Patient Encounters Encounter Performer Location Codes Date ([id number]) OFFICE/OUTPATIENT VISIT EST Diagnosis: Acute tonsillitis, unspecified[ICD10: J03.90] Justa FINK [facility] CPT-4: 89951 05/09/2019 ([id number]) OFFICE/OUTPATIENT VISIT EST Diagnosis: Sinusitis[ICD10: J32.9] Diagnosis: Acute suppurative otitis media of right ear[ICD10: H66.001] Justa FINK [facility] CPT-4: 60469 03/07/2019 ([id number]) OFFICE/OUTPATIENT VISIT EST Diagnosis: Acute pharyngitis, unspecified[ICD10: J02.9] Diagnosis: Acute tonsillitis, unspecified[ICD10: J03.90] Ross IFNK [facility] CPT-4: 41400 08/02/2018 ([id number]) OFFICE/OUTPATIENT VISIT EST Diagnosis: Acute recurrent maxillary sinusitis[ICD10: J01.01] Diagnosis: Acute pharyngitis, unspecified[ICD10: J02.9] Mary Elder ROSS FINK [facility] CPT-4: 65380 06/21/2018 ([id number]) OFFICE/OUTPATIENT VISIT EST Diagnosis: Cutaneous abscess of abdominal wall[ICD10: L02.211] Ross FINK [facility] CPT-4: 26645 11/30/2017 ([id number]) OFFICE/OUTPATIENT VISIT EST Diagnosis: Acute upper respiratory infection, unspecified[ICD10: J06.9] Diagnosis: Otitis media, unspecified, left ear[ICD10: H66.92] Tammy Martinez [facility] CPT-4: 66711 08/04/2016 OFFICE/OUTPATIENT VISIT EST Diagnosis: Acute sinusitis, unspecified[ICD10: J01.90] Dacia Champion ROSS FINK [facility] CPT-4: 25667 03/28/2016 OFFICE/OUTPATIENT VISIT EST Diagnosis: Gastro-esophageal reflux disease without esophagitis[ICD10: K21.9] Ross FINK [facility] CPT-4: 30512 02/04/2016 ([id number]) OFFICE/OUTPATIENT VISIT EST Diagnosis: Chest pain, unspecified[ICD10: R07.9] Diagnosis: Gastro-esophageal reflux disease without esophagitis[ICD10: K21.9] Diagnosis: COUGH[ICD10: R05] Ross MELGAR docplanner [facility] CPT-4: 11896 01/14/2016 OFFICE/OUTPATIENT VISIT EST Diagnosis: Epigastric pain[ICD10: R10.13] Diagnosis: Diarrhea, unspecified[ICD10: R19.7] Diagnosis: Other specified abnormal findings of blood chemistry[ICD10: R79.89] Dacia ZhangSegundo ROSS [facility]EL[facility] CPT-4: 76338 11/09/2015 ([id number]) OFFICE/OUTPATIENT VISIT EST Diagnosis: Cutaneous abscess, unspecified[ICD10: L02.91] Tammy Martinez ROSS SuliaTarah [employer] [facility] CPT-4: 65042 08/15/2015 OFFICE/OUTPATIENT VISIT NEW Diagnosis: Psoriasis, unspecified[ICD10: L40.9] Diagnosis: Gastro-esophageal reflux disease without esophagitis[ICD10: K21.9] Diagnosis: Headache[ICD10: R51] Diagnosis: Cervicalgia[ICD10: M54.2] Ross Melgar ROSS SuliaTarah [facility] doc[facility] CPT-4: 34516 06/07/2015 Plan of Care Planned Activity Notes [...] ICD-10 : J32.9 03/07/2019 Appointment: Justa Stevenson [address] [place], [place] [address] ACUTE ILLNESS 03/07/2019 Visit Plan: Supportive care. [...] Rest, Fluids... 08/02/2018 Appointment: Ross Fink WPtel: [address] [place] [address] ACUTE ILLNESS 08/02/2018 Visit Diagnosis Plan: Acute recurrent maxillary sinusi tis Discussion: Strep A- negative. Treating for sinusitis. Augmentin- take as directed. Sinus rinses encouraged. Salt water gargles. Fluids, rest, Tylenol or Motrin for pain and fever. Make annual wellness visit when checking out. Patient states understanding. ICD-9 : 461.0 ICD-10 : J01.01 06/21/2018 Appointment: Mary Elder [address] [place] [address] ACUTE ILLNESS 06/21/2018 Visit Diagnosis Plan: Cutaneous abscess of abdominal w all Discussion: Some bloody discharge expressed but no pus--his got old blood and pus out last night Warm compresses and clindamycin and notify if worsens or persists ICD-9 : 682.2 ICD-10 : L02.211 11/30/2017 Appointment: Ross Fink WPtel: [address] [place] [address] ACUTE ILLNESS 11/30/2017 Patient Education: Patient Medication Summary Completed 11/30/2017 Visit Diagnosis Plan: Acute upper respiratory infectio n, unspecified Discussion: Continue OTC meds and home remedies Rxs as above Notifiy prescriber of humira of treatment plan Rest, fluids, vicks, humidifier, etc Follow up PRN ICD-9 : 465.9 ICD-10 : J06.9 08/04/2016 Appointment: Tammy Martinez [address] [place] [address] ACUTE ILLNESS 08/04/2016 Patient Education: Patient Medication Summary Completed 08/04/2016 Visit Plan: ERx Augmentin and Medrol Dos pack Has Mucinex D at home Nasal saline, humidified air, Tylenol/ibuprofen prn Discussed s/s of worsening, go to UC/QC over weekend if needed 03/28/2016 Appointment: Dacia Champion WPtel: [address] [place] [address] ACUTE ILLNESS 03/28/2016 Patient Education: Patient Medication Summary Completed 03/28/2016 Visit Plan: Finish omeprazole at 40mg po BID for full month then decrease to 40mg daily for 1month then if no return of symptoms will decrease to 20mg daily for 1month then fwup 02/04/2016 Appointment: Ross Fink WPtel: [address] [place] [address] 01/30 confirmed`sl FOLLOW UP 02/04/2016 Patient Education: Patient Medication Summary Completed 02/04/2016 [facility] - Odd Torsten Delarosa Completed 02/04/2016 Visit Plan: No caffeine, no nicotine, no alcohol, no mints, no late meals, elevate HOB 30 degrees Omeprazole 40mg po BID Check CXR and EKG 01/14/2016 Appointment: Ross Fink WPtel: [address] [place] [address] ACUTE ILLNESS 01/14/2016 Patient Education: Patient Medication Summary Completed 01/14/2016 Care Plan: CHEST X-RAY 2VW FRONTAL&LATL LOINC : 76114-5 Pending 01/14/2016 Appointment: Ross Fink WPtel: [address] [place] [address] 11/[address] sterling [place] visit~sl RESCHEDULED 0 11/21/2015 Care Plan: ECHO EXAM OF ABDOMEN LOINC : 18996-7 Pending 11/10/2015 Visit Plan: Declines medication for diar beverley Declines stool studies CMP, CBC, TSH, Lipids (history of hyperlipidemia) GB U/S RTC/ER for worsening Discussed correlation with high fat foods, avoid. 11/09/2015 Appointment: Dacia Champion WPtel: [address] [facility] ACUTE ILLNESS 11/09/2015 Patient Education: Patient Medication Summary Completed 11/09/2015 Appointment: Tammy Martinez [address] [facility] Called at 9:20am.Patients rash went away over night. feeling better.-sp ACUTE ILLNESS 10/31/2015 Appointment: Tammy Martinez [address] [facility] US called back within minutes of scheduling to notify he could not make the appointment time. Per Dr Fink, this is a forgiven since he called back immediately to cancel the appointment.~lb RESCHEDULED 10/30/2015 Visit Plan: Rxs as above until culture r eceived Reviewed wound care Will need follow up if not improving as expected 08/15/2015 Appointment: Tammy Martinez [address] [place], [place] [id number] ACUTE ILLNESS 08/15/2015 Patient Education: Patient Medication [...] well 06/07/2015 [facility]ment[facility] [address] [facility] 06/05-SP 06/06 Confirmed~sl ACUTE ILLNESS 06/06 [...]
--- OUTSIDE RECORDS SUMMARY | 2019-10-13 06:57 | XMS REPORT | Continuity of Care Document ---
Demographics Preferred Language Unknown Marital Status Unknown Scientologist Affiliation Unknown Race Unknown Ethnic Group Unknown Author Organization Unknown Address Unknown Phone Unavailable Allergies Active Description Code Type Severity Reaction Onset Reported/Identified Relationship to Patient Clinical Status Yes No Known Drug Allergies [id number] Drug Allergy Mild N/A 07/18/2009 Yes sulfamethoxazole [id number] Drug Allergy Mild HIVES 10/06/2019 Yes trimethoprim [id number] Drug Allergy Mild HIVES 10/06/2019 Medications There is no data. Problems Date Dx Coded Attending Type Code Diagnosis Diagnosed By 03/05/1419 VALERIO CLARK, JODY [place]span[place] Ot Z01.818 ENCOUNTER FOR OTHER PREPROCEDURAL EXAMIN 03/05/1419 JODY LUO MD Ot Z20.828 CONTACT W AND EXPOSURE TO OTH VIRAL COMM 07/18/2009 Ot 924.10 07/18/2009 Ot 959.7 07/18/2009 Ot E000.8 07/18/2009 Ot E007.3 07/18/2009 Ot E849.4 07/18/2009 Ot E917.0 06/07/2012 Ot 719.41 SARAI NT PAIN-SHLDER 06/07/2012 Ot V57.1 PHYS ICAL THERAPY NEC 05/02/2017 DONNANDKATHIA DOMIRNAROSS S Ot R05 COUGH 05/02/2017 DONNANDER DO, ROSS S Ot R07.9 CHEST PAIN, UNSPECIFIED 09/09/2017 DONNANDER DO ROSS S Ot R05 COUGH 09/09/2017 DONNANDER DO, ROSS S Ot R07.9 CHEST PAIN, UNSPECIFIED 05/27/2019 ORENDER DO, ROSS S Ot R05 COUGH 05/27/2019 ORENDER DO, ROSS S Ot R07.9 CHEST PAIN, UNSPECIFIED 06/03/2019 W J03.90 Acu te tonsillitis, unspecified Elva, Justa 08/04/2019 W J03.91 Rec urrent tonsillitis Ross Fink S. 08/04/2019 W J03.91 Rec urrent tonsillitis Ross Fink S. Procedures There is no data. Results Test Result Range Coronavirus SARS-CoV-2 SO 2019 - 0 07:50 Coronavirus Ab [Units/volume] in Serum Negative Negative Encounters ACCT No. Visit Date/Time Discharge Status Pt. Type Provider Facility Loc./Unit Complaint [id number] 04/15/2012 14:35:02 RECURRING 06/201603/07/2019 15:27:48 03/07/2019 23:59 :59 CLS Outpatient Ross Fink [id number] 05/09/2019 10:32:00 Document Registration [id number] 10/10/2019 05:46:00 020 14:20:00 DIS Outpatient JODY LUO MD [facility] PREOP ADENOTONSILLAR HYPERTRO PHY [id number] 01/14/2016 13:54:00 016 23:59:59 CLS Outpatient ROSS FINK DO [facility] CARD CHEST PAIN,COUG H [id number] 10/13/2019 07:30:00 P EN Preadmit JODY LUO MD [facility] SDC ADENOTONSILLAR HYPERTROPHY [id number] 06/07/2012 09:53:00 Document Registration [id number] 07/18/2009 06:57:00 Document Registration
[2019-10-13] MEDS ORDERED: LACTATED RINGERS 1,000 ML IV PRN (07:01)
[2019-10-13 07:35] LABS: BASOPHILS # (AUTO) 0.1 10^3/uL (0.0-0.1); BASOPHILS % (AUTO) 1 % (0-10); EOSINOPHILS # (AUTO) 0.2 10^3/uL (0.0-0.3); EOSINOPHILS % (AUTO) 3 % (0-10); HEMATOCRIT 45 % (40-54); HEMOGLOBIN 16.3 G/DL (13.3-17.7); LYMPHOCYTES # (AUTO) 2.7 X 10^3 (1.0-4.0); LYMPHOCYTES % (AUTO) 38 % (12-44); MEAN CORPUSCULAR HEMOGLOBIN 33 PG (25-34); MEAN CORPUSCULAR HGB CONC 36 G/DL (32-36); MEAN CORPUSCULAR VOLUME 91 FL (80-99); MEAN PLATELET VOLUME 9.2 FL (7.4-10.4); MONOCYTES # (AUTO) 0.9 X 10^3 (0.0-1.0); MONOCYTES % (AUTO) 12 % (0-12); NEUTROPHILS # (AUTO) 3.3 X 10^3 (1.8-7.8); NEUTROPHILS % (AUTO) 46 % (42-75); PLATELET COUNT 331 10^3/uL (130-400); RED CELL DISTRIBUTION WIDTH 13.1 % (10.0-14.5); WHITE BLOOD COUNT 7.2 10^3/uL (4.3-11.0)
[2019-10-13] MEDS ORDERED: FAMOTIDINE 20MG/2ML IV (PEPCID) IV ONE (07:45)
[2019-10-13 07:46] LABS: CHLORIDE 108 MMOL/L (98-107); POTASSIUM 4.1 MMOL/L (3.6-5.0); SODIUM 139 MMOL/L (135-145)
[2019-10-13 07:47] LABS: CALCIUM 8.9 MG/DL (8.5-10.1); GLUCOSE 96 MG/DL (70-105)
[2019-10-13 07:49] LABS: CARBON DIOXIDE 19 MMOL/L (21-32)
[2019-10-13] MEDS ORDERED: FAMOTIDINE 20MG/2ML IV (PEPCID) ONE (07:49)
[2019-10-13 07:51] LABS: CREATININE SERUM 1.21 MG/DL (0.60-1.30); GFR ESTIMATED > 60
[2019-10-13 07:52] LABS: BUN/CREATININE RATIO 15
--- NOTE | 2019-10-13 08:02 | Progress Note-Pre Operative ---
Pre-Operative Progress Note H&P Reviewed The H&P was reviewed, patient examined and no changes noted. Date Seen by Provider: Oct 13, 2019 Time Seen by Provider: 07:30 Date H&P Reviewed: Oct 13, 2019 Time H&P Reviewed: 07:30 Pre-Operative Diagnosis: Chroinc Tonsillitis, Cryptic Tonsils JODY LUO MD Oct 13, 2019 08:02
[2019-10-13] MEDS ORDERED: DEXAMETHASONE 10 MG/ML (DECADRON) 1 ML VIAL ONE (08:08)
[2019-10-13] MEDS ORDERED: SEVOFLURANE (ULTANE) 15 ML INHAL SOLN ONE ×2 (08:08→08:17)
[2019-10-13] MEDS ORDERED: proPOfol 200 MG/20 ML (DIPRIVAN) VIAL IV ONE ×2 (08:08→08:29)
[2019-10-13] MEDS ORDERED: LIDOCAINE PF 2% 5 ML (XYLOCAINE) VIAL ONE (08:08)
[2019-10-13] MEDS ORDERED: fentaNYL INJECTION 100 MCG/2 ML AMP ONE (08:08)
[2019-10-13] MEDS ORDERED: MIDAZOLAM 2 MG/2 ML (VERSED) VIAL ONE (08:08)
[2019-10-13] MEDS ORDERED: ONDANSETRON 4 MG/2 ML (SDV) Z0FRAN ONE (08:08)
[2019-10-13] MEDS ORDERED: NS IV 1000 ML 1,000 ML IV SCH (09:10)
--- NOTE | 2019-10-13 09:10 | Progress Note-Post Operative ---
Post-Operative Progess Note Surgeon (s)/Kick Boxer (s) Surgeon JODY LUO MD Kick Boxer n/a Pre-Operative Diagnosis Chroinc Tonsillitis, Cryptic Tonsils Post-Operative Diagnosis same Post-Op Procedure Note Date of Procedure: Oct 13, 2019 Name of Procedure Performed: Tonsillectomy Description & Findings Description and Findings: n/a Anesthesia Type get Estimated Blood Loss minimal Packing none. Specimen(s) collected/removed tonsils JODY LUO MD Oct 13, 2019 09:10
[2019-10-13] MEDS ORDERED: HYDROcodone/APAP 7.5MG-325 MG/15 ML (LORTAB) UDC PO PRN (09:15)
[2019-10-13] MEDS ORDERED: APAP 325 MG/10.15 ML LIQ (TYLENOL) UDC PO PRN (09:15)
[2019-10-13] MEDS ORDERED: morphine INJ 10 MG/ML 1ML (SYR OR VIAL) IVP ONE (09:30)
[2019-10-13] MEDS ORDERED: ONDANSETRON 4 MG/2 ML (SDV) Z0FRAN IVP PRN (09:30)
[2019-10-13] MEDS ORDERED: MEPERIDINE (DEMEROL) INJ 50 MG/ML IVP ONE (09:30)
[2019-10-13] MEDS ORDERED: HYDROmorphone 2 MG/ML VIAL (DILAUDID) IV ONE (09:30)
[2019-10-13] MEDS ORDERED: PHENYLEPHRINE 100 MCG/ML 10 ML (ANESTHESIA) SYR ONE (09:36)
[2019-10-13] MEDS ORDERED: morphine INJ 10 MG/ML 1ML (SYR OR VIAL) ONE (09:41)
--- NOTE | 2019-10-13 10:22 | Anesthesia-General Post-Op ---
General Patient Condition Mental Status/LOC: Same as Preop Cardiovascular: Satisfactory Nausea/Vomiting: Absent Respiratory: Satisfactory Pain: Controlled Complications: Absent Post Op Complications Complications None Follow Up Care/Instructions Patient Instructions None needed. Anesthesia/Patient Condition Patient Condition Patient is doing well, no complaints, stable vital signs, no apparent adverse anesthesia problems. No complications reported per nursing. ISREAL CHAPMAN CRNA Oct 13, 2019 10:22
[2019-10-13] MEDS ORDERED: HYDR15SO8 PO (11:21)
[2019-10-13] MEDS ORDERED: TETRACAINESUCKERS MT (11:21)
[2019-10-13] MEDS ORDERED: AMOX250S5 PO (11:21)
[2019-10-13] MEDS ORDERED: DEXAINTSOL PO (11:21)
== END 2019-10-13 12:30 | disposition home or self-care (01) ==
LOC: SDC 06:48
PROVIDERS: ATTEND Otolaryngology Otolaryngology/Facial Plastic Surgery
DX: J35.01 Chronic tonsillitis (principal); Z11.2 Encounter for screening for other bacterial diseases; R06.83 Snoring; R53.83 Other fatigue; J35.3 Hypertrophy of tonsils with hypertrophy of adenoids; Z88.2 Allergy status to sulfonamides; K21.9 Gastro-esophageal reflux disease without esophagitis
CPT/HCPCS: 36415; 80048; 85025; 87081